=== PATIENT | female | born 1995 | race Hispanic/Latino ===

== ENCOUNTER 2016-12-15 13:18 | Emergency (ER) | payer SELFPAY ==
[2016-12-15 16:31] LABS: Basophils % (Auto) 0.6 % (0.0-1.8); Eosinophils % (Auto) 0.2 % (0.0-4.3); Hematocrit 44.1 % (30.3-42.9); Hemoglobin 14.6 gm/dl (10.1-14.3); Mean Corpuscular HGB Conc 33 % (30-34); Mean Corpuscular Hemoglobin 31 pg (28-32); Mean Corpuscular Volume 94 fl (79-97); Platelet Count 293 K/mm3 (140-440); Red Blood Count 4.72 M/mm3 (3.65-5.03); Red Cell Distribution Width 13.4 % (13.2-15.2); White Blood Count 13.9 K/mm3 (4.5-11.0)
[2016-12-15 16:56] LABS: Alanine Aminotransferase 15 units/L (7-56); Albumin 4.5 g/dL (3.9-5); Albumin/Globulin Ratio 1.6 %; Alkaline Phosphatase 91 units/L (35-129); Bilirubin,Total 0.2 mg/dL (0.1-1.2); Blood Urea Nitrogen 11 mg/dL (7-17); Calcium 9.1 mg/dL (8.4-10.2); Carbon Dioxide 26 mmol/L (22-30); Chloride 99.1 mmol/L (98-107); Glucose 91 mg/dL (65-100); Potassium 4.3 mmol/L (3.6-5.0); Sodium 138 mmol/L (137-145); Total Protein 7.4 g/dL (6.3-8.2)
[2016-12-15 17:03] LABS: Anion Gap 17 mmol/L
[2016-12-15] MEDS ORDERED: BACTRIM DS PO ONE (17:27)
[2016-12-15] MEDS ORDERED: TORADOL IM ONE (17:27)
--- NOTE | 2016-12-15 17:28 | Emergency Department Report ---
ED Psych HPI - General Chief Complaint: Psych Stated Complaint: ATTEMPTED SUICIDE Time Seen by Provider: 12/15/16 16:45 Source: patient, EMS Mode of arrival: Ambulatory Limitations: No Limitations - History of Present Illness Initial Comments: 21-year-old female with a past medical history of PTSD and manic depression presents to the hospital complains of cutting her left wrist with a piece of glass. Patient states she does not know why she cut it. She cut her wrist after taking 2 pills of her grandmothers for depression. Patient cannot recall the name of the medications. Patient is supposed to be following with [facility] but missed her last 2 appointments. Next available appointment in the end of dec. She is not currently taking any psychiatric medication. She denies suicidal homicidal ideation. She denies hallucinations. She has had self cutting episodes in the past but denies previous suicide attempts. She states her tetanus is up-to-date. Patient states she is currently on antibiotics for an infection to her left middle finger. Patient states some mild drainage noted. She was diagnosed with and infection prescribed meds at [facility]. She complains of mild pain at this area with palpation and movement - Related Data Home Medications Medication Instructions Recorded Confirmed Last Taken No Known Home Medications [No 12/15/16 12/15/16 Unknown Reported Home Medications] Allergies Allergy/AdvReac Type Severity Reaction Status Date / Time No Known Allergies Allergy Verified 11/10/15 02:23 ED Review of Systems ROS: Stated complaint: ATTEMPTED SUICIDE Other details as noted in HPI Comment: All other systems reviewed and negative Other: Constitutional: No fevers chills Eyes: No eye pain visual changes ENT: No ear pain or throat pain Neck: Denies pain Respiratory: Denies cough wheezing shortness of breath Cardiovascular: Denies chest pain, palpitations, syncope GI: Denies abdominal pain, nausea, vomiting, diarrhea : Denies dysuria, urinary frequency, or urgency Musculoskeletal: As per HPI Skin: as per hpi Neurologic: Denies headache, numbness, weakness Psychiatric: Denies suicidal ideation, hallucinations ED Past Medical Hx - Past Medical History Hx Psychiatric Treatment: Yes Additional medical history: PTSD after of daughter. Child is 3 yrs. old. Manic depression . - Surgical History Additional Surgical History: TONSILLECTOMY - Social History Smoking Status: Current Every Day Smoker Substance Use Type: None - Medications Home Medications: Home Medications Medication Instructions Recorded Confirmed Last Taken Type No Known Home Medications [No 12/15/16 12/15/16 Unknown History Reported Home Medications] ED Physical Exam - General Limitations: Altered Mental Status, Other - Other Other exam information: General: No limitations, patient is alert in no acute distress Head exam: Atraumatic, normocephalic Eyes exam: Normal appearance, pupils equal reactive to light, extraocular movements intact ENT: Moist mucous membrane, normal oropharynx Neck exam: Normal inspection, full range of motion, no meningismus nontender Respiratory exam: Clear to auscultation bilateral, no wheezes, rales, crackles Cardiovascular: Normal rate and rhythm, normal heart sounds Abdomen: Soft, nondistended, and nontender, with normal bowel sounds, no rebound, or guarding Extremity: Full range of motion, left hand middle finger with scabbed punctate lesion and erythema around the PIP joint with mild swelling noted. No sausage digit or findings of flexor tenosynovitis Back: Normal Inspection, full range of motion, no tenderness Neurologic: Alert, oriented x3, cranial nerves intact, no motor or sensory deficit Psychiatric: normal affect, normal mood Skin: Left volar surface of the wrist with a very superficial 2 cm laceration/ scratch not requiring suture repair. ED Course Vital Signs 12/15/16 12/15/16 12/15/16 13:46 13:51 13:56 Temperature 98.8 F Pulse Rate 89 Respiratory 14 Rate Blood Pressure 102/50 110/78 Blood Pressure [Left] O2 Sat by Pulse 98 98 99 Oximetry 12/15/16 12/15/16 12/15/16 14:00 14:02 15:33 Temperature 98.7 F Pulse Rate 70 Respiratory Rate Blood Pressure 101/55 101/55 Blood Pressure [Left] O2 Sat by Pulse 97 99 98 Oximetry 12/15/16 12/15/16 12/15/16 16:31 17:38 17:42 Temperature Pulse Rate Respiratory 12 Rate Blood Pressure 101/55 101/55 Blood Pressure [Left] O2 Sat by Pulse 99 89 99 Oximetry 12/15/16 12/15/16 12/15/16 17:51 18:15 18:20 Temperature 98.6 F Pulse Rate 78 Respiratory 18 Rate Blood Pressure 94/62 Blood Pressure [Left] O2 Sat by Pulse 90 Oximetry 12/15/16 12/15/16 12/15/16 18:51 19:15 19:24 Temperature Pulse Rate 76 Respiratory 18 Rate Blood Pressure 107/64 Blood Pressure 107/64 [Left] O2 Sat by Pulse 99 100 100 Oximetry - Reevaluation(s) Reevaluation #1: 12/15/16 17:29 Bactrim, Toradol ordered - Consultations Consultation #1: 12/15/16 19:56 consult ED Medical Decision Making - Lab Data Result diagrams: 12/15/16 16:17 12/15/16 16:17 Lab Results 12/15/16 12/15/16 12/15/16 Range/Units 16:17 16:17 16:17 WBC 13.9 H (4.5-11.0) K/mm3 RBC 4.72 (3.65-5.03) M/mm3 Hgb 14.6 H (10.1-14.3) gm/dl Hct 44.1 H (30.3-42.9) % MCV 94 (79-97) fl MCH 31 (28-32) pg MCHC 33 (30-34) % RDW 13.4 (13.2-15.2) % Plt Count 293 (140-440) K/mm3 Lymph % (Auto) 13.8 (13.4-35.0) % [place] % (Auto) 3.3 (0.0-7.3) % Eos % (Auto) 0.2 (0.0-4.3) % Baso % (Auto) 0.6 (0.0-1.8) % Lymph # 1.9 (1.2-5.4) K/mm3 [place] # 0.5 (0.0-0.8) K/mm3 Eos # 0.0 (0.0-0.4) K/mm3 Baso # 0.1 (0.0-0.1) K/mm3 Seg Neutrophils % 82.1 H (40.0-70.0) % Seg Neutrophils # 11.5 H (1.8-7.7) K/mm3 Sodium 138 (137-145) mmol/L Potassium 4.3 (3.6-5.0) mmol/L Chloride 99.1 (98-107) mmol/L Carbon Dioxide 26 (22-30) mmol/L Anion Gap 17 mmol/L BUN 11 (7-17) mg/dL Creatinine 0.5 L (0.7-1.2) mg/dL Estimated GFR > 60 ml/min BUN/Creatinine Ratio 22.00 % Glucose 91 (65-100) mg/dL Calcium 9.1 (8.4-10.2) mg/dL Total Bilirubin 0.2 (0.1-1.2) mg/dL AST 18 (5-40) units/L ALT 15 (7-56) units/L Alkaline Phosphatase 91 (35-129) units/L Total Protein 7.4 (6.3-8.2) g/dL Albumin 4.5 (3.9-5) g/dL Albumin/Globulin Ratio 1.6 % HCG, Qual (Negative) Urine Color (Yellow) Urine Turbidity (Clear) Urine pH (5.0-7.0) Ur Specific [place] (1.003-1.030) Urine Protein (Negative) mg/dL Urine Glucose (UA) (Negative) mg/dL Urine Ketones (Negative) mg/dL Urine Blood (Negative) Urine Nitrite (Negative) Urine Bilirubin (Negative) Urine Urobilinogen (<2.0) mg/dL Ur Leukocyte Esterase (Negative) Urine WBC (Auto) (0.0-6.0) /HPF Urine RBC (Auto) (0.0-6.0) /HPF U Epithel Cells (Auto) (0-13.0) /HPF Urine Bacteria (Auto) (Negative) /HPF Amorphous Crystals Salicylates < 0.3 L (2.8-20.0) mg/dL Urine Opiates Screen Urine Methadone Screen Acetaminophen (10.0-30.0) ug/mL Ur Barbiturates Screen Ur Phencyclidine Scrn Ur Amphetamines Screen U Benzodiazepines Scrn Urine Cocaine Screen U Marijuana (THC) Screen Drugs of Abuse Note Plasma/Serum Alcohol (0-0.07) gm% 12/15/16 12/15/16 12/15/16 Range/Units 16:17 16:17 16:17 WBC (4.5-11.0) K/mm3 RBC (3.65-5.03) M/mm3 Hgb (10.1-14.3) gm/dl Hct (30.3-42.9) % MCV (79-97) fl MCH (28-32) pg MCHC (30-34) % RDW (13.2-15.2) % Plt Count (140-440) K/mm3 Lymph % (Auto) (13.4-35.0) % [place] % (Auto) (0.0-7.3) % Eos % (Auto) (0.0-4.3) % Baso % (Auto) (0.0-1.8) % Lymph # (1.2-5.4) K/mm3 [place] # (0.0-0.8) K/mm3 Eos # (0.0-0.4) K/mm3 Baso # (0.0-0.1) K/mm3 Seg Neutrophils % (40.0-70.0) % Seg Neutrophils # (1.8-7.7) K/mm3 Sodium (137-145) mmol/L Potassium (3.6-5.0) mmol/L Chloride (98-107) mmol/L Carbon Dioxide (22-30) mmol/L Anion Gap mmol/L BUN (7-17) mg/dL Creatinine (0.7-1.2) mg/dL Estimated GFR ml/min BUN/Creatinine Ratio % Glucose (65-100) mg/dL Calcium (8.4-10.2) mg/dL Total Bilirubin (0.1-1.2) mg/dL AST (5-40) units/L ALT (7-56) units/L Alkaline Phosphatase (35-129) units/L Total Protein (6.3-8.2) g/dL Albumin (3.9-5) g/dL Albumin/Globulin Ratio % HCG, Qual Negative (Negative) Urine Color (Yellow) Urine Turbidity (Clear) Urine pH (5.0-7.0) Ur Specific [place] (1.003-1.030) Urine Protein (Negative) mg/dL Urine Glucose (UA) (Negative) mg/dL Urine Ketones (Negative) mg/dL Urine Blood (Negative) Urine Nitrite (Negative) Urine Bilirubin (Negative) Urine Urobilinogen (<2.0) mg/dL Ur Leukocyte Esterase (Negative) Urine WBC (Auto) (0.0-6.0) /HPF Urine RBC (Auto) (0.0-6.0) /HPF U Epithel Cells (Auto) (0-13.0) /HPF Urine Bacteria (Auto) (Negative) /HPF Amorphous Crystals Salicylates (2.8-20.0) mg/dL Urine Opiates Screen Urine Methadone Screen Acetaminophen < 15.0 (10.0-30.0) ug/mL Ur Barbiturates Screen Ur Phencyclidine Scrn Ur Amphetamines Screen U Benzodiazepines Scrn Urine Cocaine Screen U Marijuana (THC) Screen Drugs of Abuse Note Plasma/Serum Alcohol < 0.01 (0-0.07) gm% 12/15/16 12/15/16 Range/Units 17:26 17:26 WBC (4.5-11.0) K/mm3 RBC (3.65-5.03) M/mm3 Hgb (10.1-14.3) gm/dl Hct (30.3-42.9) % MCV (79-97) fl MCH (28-32) pg MCHC (30-34) % RDW (13.2-15.2) % Plt Count (140-440) K/mm3 Lymph % (Auto) (13.4-35.0) % [place] % (Auto) (0.0-7.3) % Eos % (Auto) (0.0-4.3) % Baso % (Auto) (0.0-1.8) % Lymph # (1.2-5.4) K/mm3 [place] # (0.0-0.8) K/mm3 Eos # (0.0-0.4) K/mm3 Baso # (0.0-0.1) K/mm3 Seg Neutrophils % (40.0-70.0) % Seg Neutrophils # (1.8-7.7) K/mm3 Sodium (137-145) mmol/L Potassium (3.6-5.0) mmol/L Chloride (98-107) mmol/L Carbon Dioxide (22-30) mmol/L Anion Gap mmol/L BUN (7-17) mg/dL Creatinine (0.7-1.2) mg/dL Estimated GFR ml/min BUN/Creatinine Ratio % Glucose (65-100) mg/dL Calcium (8.4-10.2) mg/dL Total Bilirubin (0.1-1.2) mg/dL AST (5-40) units/L ALT (7-56) units/L Alkaline Phosphatase (35-129) units/L Total Protein (6.3-8.2) g/dL Albumin (3.9-5) g/dL Albumin/Globulin Ratio % HCG, Qual (Negative) Urine Color Yellow (Yellow) Urine Turbidity Cloudy (Clear) Urine pH 7.0 (5.0-7.0) Ur Specific [place] 1.013 (1.003-1.030) Urine Protein <15 mg/dl (Negative) mg/dL Urine Glucose (UA) Neg (Negative) mg/dL Urine Ketones Neg (Negative) mg/dL Urine Blood Neg (Negative) Urine Nitrite Neg (Negative) Urine Bilirubin Neg (Negative) Urine Urobilinogen < 2.0 (<2.0) mg/dL Ur Leukocyte Esterase Sm (Negative) Urine WBC (Auto) 2.0 (0.0-6.0) /HPF Urine RBC (Auto) 2.0 (0.0-6.0) /HPF U Epithel Cells (Auto) 19.0 H (0-13.0) /HPF Urine Bacteria (Auto) 1+ (Negative) /HPF Amorphous Crystals Few Salicylates (2.8-20.0) mg/dL Urine Opiates Screen Presumptive negative Urine Methadone Screen Presumptive negative Acetaminophen (10.0-30.0) ug/mL Ur Barbiturates Screen Presumptive negative Ur Phencyclidine Scrn Presumptive negative Ur Amphetamines Screen Presumptive negative U Benzodiazepines Scrn Presumptive negative Urine Cocaine Screen Presumptive negative U Marijuana (THC) Screen Presumptive negative Drugs of Abuse Note Disclamer Plasma/Serum Alcohol (0-0.07) gm% - Medical Decision Making pt medically cleared. 1013 and transfer order signed. Pt will be covered with Bactrim for finger infection. During ED stay patient attempted to change her story multiple times stating that the scratch to her left wrist with a "accident". There is a male/ boyfriend at the bedside who has been asking to take the patient home and discharge her however, patient is here for self mutilating behavior and noncompliant without outpatient psychiatric treatment. Pt is trying to down play reason for visit to the hospital in an attempt to be sent home. Boyfriend gave a story that was not the story given by the pt initially. attempted to verify story with Grandparents but no response via phone. 1013 will be continued given story inconsistencies - Differential Diagnosis borderline, self mutilating behavior, PTSD, suicidal ideation, depression Critical Care Time: No Critical care attestation.: If time is entered above; I have spent that time in minutes in the direct care of this critically ill patient, excluding procedure time. ED Disposition Clinical Impression: Suicidal ideation, PTSD (post-traumatic stress disorder), Bipolar disorder, Finger infection, Medical clearance for psychiatric admission Disposition: DC/TX PSY HOSP/PSY UNIT Is pt being admited?: No Condition: Stable Time of Disposition: 19:57 (awaiting acceptance)
[2016-12-15 17:33] LABS: Urine Drugs of Abuse Note Disclamer
[2016-12-15 17:41] LABS: Bacteria,Urine 1+ /HPF (Negative); Bilirubin,Urine NEG (Negative); Blood,Urine NEG (Negative); Ketones,Urine NEG (Negative); Leukocyte Esterase,Urine SM (Negative); Nitrite,Urine NEG (Negative); Protein,Urine <15 mg/dL mg/dL (Negative); Urobilinogen,Urine < 2.0 mg/dL (<2.0)
[2016-12-15] MEDS ORDERED: HABITROL TD ONE ×2 (20:15→20:16)
[2016-12-16] MEDS ORDERED: ALUM-MAG HYDROX-SIMETH 200-200-20MG/5ML PO PRN (01:11)
[2016-12-16] MEDS ORDERED: MILK OF MAGNESIA PO PRN (01:11)
[2016-12-16] MEDS: BACTRIM DS PO SCH ×2 (10:10→22:00)
[2016-12-16] MEDS: TYLENOL PO PRN ×2 (21:18→21:20)
[2016-12-16] MEDS: VISTARIL PO PRN (21:29)
--- NOTE | 2016-12-17 02:07 | Event Note ---
Date: 12/17/16 No recent events. Awaiting psychiatric placement. Vital signs reviewed. Vital Signs 12/15/16 12/15/16 12/15/16 13:46 13:51 13:56 Temperature 98.8 F Pulse Rate 89 Respiratory 14 Rate Blood Pressure 102/50 110/78 Blood Pressure [Left] O2 Sat by Pulse 98 98 99 Oximetry 12/15/16 12/15/16 12/15/16 14:00 14:02 15:33 Temperature 98.7 F Pulse Rate 70 Respiratory Rate Blood Pressure 101/55 101/55 Blood Pressure [Left] O2 Sat by Pulse 97 99 98 Oximetry 12/15/16 12/15/16 12/15/16 16:31 17:38 17:42 Temperature Pulse Rate Respiratory 12 Rate Blood Pressure 101/55 101/55 Blood Pressure [Left] O2 Sat by Pulse 99 89 99 Oximetry 12/15/16 12/15/16 12/15/16 17:51 18:15 18:20 Temperature 98.6 F Pulse Rate 78 Respiratory 18 Rate Blood Pressure 94/62 Blood Pressure [Left] O2 Sat by Pulse 90 Oximetry 12/15/16 12/15/16 12/15/16 18:51 19:15 19:24 Temperature Pulse Rate 76 Respiratory 18 Rate Blood Pressure 107/64 Blood Pressure 107/64 [Left] O2 Sat by Pulse 99 100 100 Oximetry 12/16/16 10:00 Temperature Pulse Rate Respiratory 18 Rate Blood Pressure Blood Pressure [Left] O2 Sat by Pulse 100 Oximetry
[2016-12-17] MEDS: BACTRIM DS PO SCH ×2 (10:09→22:47)
[2016-12-17] MEDS: VISTARIL PO PRN ×2 (11:59→22:38)
--- NOTE | 2016-12-17 14:16 | Emergency Department Report ---
Blank Doc - Documentation Documentation: Bitting note reviewed. Labs reviewed. Vital signs reviewed. I don't see any supplemental issues.
[2016-12-17] MEDS ORDERED: ATIVAN PO ONE (17:06)
[2016-12-17] MEDS: TYLENOL PO PRN (17:10)
[2016-12-18 09:36] VITALS: BP 97/58
== END 2016-12-18 09:36 ==
LOC: EEVIPCON 13:18 → ED 13:18
DX: S61.512A Laceration without foreign body of left wrist, initial encounter (principal); R45.851 Suicidal ideations; F20.9 Schizophrenia, unspecified; L08.9 Local infection of the skin and subcutaneous tissue, unspecified; F43.10 Post-traumatic stress disorder, unspecified; F17.200 Nicotine dependence, unspecified, uncomplicated; W25.XXXA Contact with sharp glass, initial encounter; Y93.9 Activity, unspecified; Y92.89 Other specified places as the place of occurrence of the external cause; Y99.9 Unspecified external cause status
CPT/HCPCS: 36415; 80053; 80307; 81001; 84703; 85025; 96372; 99285; G0480; J1885; 80320; Q0177

== ENCOUNTER 2018-03-24 23:10 | Emergency (ER) | payer MEDICAID ==
[2018-03-24 23:19] VITALS: BP 122/86
[2018-03-24 23:50] LABS: Basophils # (Auto) 0.1 K/mm3 (0.0-0.1); Basophils % (Auto) 0.8 % (0.0-1.8); Eosinophils # (Auto) 0.1 K/mm3 (0.0-0.4); Eosinophils % (Auto) 0.8 % (0.0-4.3); Hematocrit 43.4 % (30.3-42.9); Hemoglobin 14.8 gm/dl (10.1-14.3); Lymphocytes # (Auto) 3.3 K/mm3 (1.2-5.4); Lymphocytes % (Auto) 29.7 % (13.4-35.0); Mean Corpuscular HGB Conc 34 % (30-34); Mean Corpuscular Hemoglobin 31 pg (28-32); Mean Corpuscular Volume 91 fl (79-97); Monocytes # (Auto) 0.8 K/mm3 (0.0-0.8); Monocytes % (Auto) 6.9 % (0.0-7.3); Platelet Count 296 K/mm3 (140-440); Red Blood Count 4.77 M/mm3 (3.65-5.03); Red Cell Distribution Width 13.2 % (13.2-15.2)
[2018-03-25 00:04] LABS: BUN/Creatinine Ratio 13; Blood Urea Nitrogen 9 mg/dL (7-17); Calcium 9.3 mg/dL (8.4-10.2); Hemolysis Index 2
[2018-03-25 02:20] LABS: Bacteria,Urine 2+ /HPF (Negative); Bilirubin,Urine NEG (Negative); Blood,Urine NEG (Negative); Color,Urine Amber (Yellow); Hyaline Casts,Urine 1 /LPF; Mucus,Urine 1+ /HPF; Protein,Urine <15 mg/dL mg/dL (Negative)
[2018-03-25 02:35] LABS: Benzodiazepines Screen,Urine PRESUMPTIVE NEGATIVE; Cocaine Screen,Urine PRESUMPTIVE NEGATIVE; Methadone Screen,Urine PRESUMPTIVE NEGATIVE; Opiate Screen,Urine PRESUMPTIVE NEGATIVE
[2018-03-25 02:50] LABS: Amphetamine Screen,Urine PRESUMPTIVE POSITIVE; Cannabinoid Screen,Urine PRESUMPTIVE POSITIVE
== END 2018-03-24 23:53 | disposition left against medical advice (07) ==
LOC: ED 23:10
DX: R53.1 Weakness (principal); Z53.21 Procedure and treatment not carried out due to patient leaving prior to being seen by health care provider; Z79.899 Other long term (current) drug therapy
CPT/HCPCS: 36415; 80048; 80307; 81001; 84703; 85025; G0480; 80320

== ENCOUNTER 2021-05-09 16:54 | Inpatient (IN) | payer OTHER ==
[2021-05-09] MEDS ORDERED: NALOXONE 2 MG/2 ML INJ ONE (16:57)
[2021-05-09] MEDS ORDERED: SODIUM CHLORIDE 0.9% 1000 ML 1,000 ML ONE (17:04)
[2021-05-09] MEDS ORDERED: LIP THERAPY VASELINE TP PRN (17:14)
[2021-05-09] MEDS ORDERED: MINERAL OIL/PETROLATUM, WHITE OPHTH OINT 3.5 GM OU PRN (17:14)
--- NOTE | 2021-05-09 17:19 | Emergency Department Report ---
HPI - General Time Seen by Provider: 05/09/21 17:12 - HPI HPI: This is a 26-year-old female presents to the emergency department via EMS from home unresponsive with witnessed seizures and concern for an overdose of Benadryl. EMS says that their initial call was for a Benadryl overdose. Family is unable to say how much she took or when she took it. The patient was awake but altered when EMS arrived. She laid down on the cement, appeared to defecate on herself, and had a seizure. The patient had another seizure in route with EMS and was given 2 mg of Ativan. EMS says that the family told him that she does have some history of previous drug use/abuse, but they are not sure whether she has used any illicit drugs since she got out of [facility] 2 months ago. The patient has not been to our emergency department since June of last year, but has previously been seen for suicidal ideations, bipolar disorder, amphetamine abuse and PTSD. The patient presents with a GCS of 6 and no gag reflex, so the patient was intubated for protection of airway. ED Past Medical Hx - Past Medical History Hx Psychiatric Treatment: Yes Additional medical history: PTSD after of daughter. Child is 3 yrs. old. Manic depression . - Surgical History Additional Surgical History: TONSILLECTOMY - Social History Smoking Status: Never Smoker Substance Use Type: None - Medications Home Medications: Home Medications Medication Instructions Recorded Confirmed Last Taken Type Nitrofurantoin Lassen/M-Cryst 100 mg PO Q12HR #14 capsule 06/20/20 Unknown Rx [Macrobid CAP] risperiDONE [RisperDAL] 0.5 mg PO BID #60 tablet 06/20/20 Unknown Rx traZODone [Desyrel] 50 mg PO QHS #30 tablet 06/20/20 Unknown Rx ED Review of Systems ROS: Stated complaint: UNRESPONSIVE Other details as noted in HPI Comment: Unobtainable due to pts medical conditions Physical Exam - Physical Exam Physical Exam: GENERAL: The patient is ill-appearing and unresponsive. HENT: Normocephalic. Atraumatic. Patient has moist mucous membranes. EYES: Horizontal nystagmus. Pupils equal reactive to light bilaterally. NECK: Supple. Trachea is midline. CHEST/LUNGS: Clear to auscultation. There is no respiratory distress noted. HEART/CARDIOVASCULAR: Regular. There is moderate tachycardia. There is no murmur. ABDOMEN: Abdomen is soft, nontender. Patient has normal bowel sounds. There is no abdominal distention. SKIN: Skin is warm and dry. NEURO: Patient is unresponsive. Eyes are open spontaneously but there is horizontal nystagmus and no blinking reflex. GCS of 6. No gag reflex. MUSCULOSKELETAL: There is no tenderness or deformity. ED Course - Reevaluation(s) Reevaluation #1: 05/09/21 18:47 Mother (Sahara Mitchell) called. Her Cell number [phone]. Her mother confirms that the patient was at the grandparents house and that the patient went into her grandmother's room and told them that she took "a bunch" of Benadryl. - Consultations Consultation #1: 05/09/21 17:24 I spoke with poison control. They do not recommend physostigmine at this time. Suggestion is supportive care and use benzodiazepines as needed for any agitation. They recommend the normal tox work-up including EKG, UDS, blood alcohol level, acetaminophen/salicylate levels, and he also recommends a CK level. 05/09/21 17:38 Poison control called back and after speaking to the tox attending they recommended activated charcoal with sorbitol at 1 g/kg. - Intubation Time Out Performed: Yes Sedative: Etomidate Mg Given: 20 Paralytic: Rocuronium Mg Given: 50 Laryngoscope: other ([place] scope) Size: 4 ET Tube Size: 7.5 Tube Secured Depth (cm): 22 Tube Secured Location: teeth Tube Placement Confirmation: visualized tube passing t, equal breath sounds bilat, confirmation by capnometr Patient Tolerated Procedure: well Intubation Complications: none ED Medical Decision Making - Lab Data Result diagrams: 05/10/21 04:18 05/10/21 04:18 Lab Results 05/09/21 05/09/21 05/09/21 Range/Units 17:21 17:21 17:21 WBC 9.0 (4.5-11.0) K/mm3 RBC 4.67 (3.65-5.03) M/mm3 Hgb 14.9 H (10.1-14.3) gm/dl Hct 45.0 H (30.3-42.9) % MCV 96 (79-97) fl MCH 32 (28-32) pg MCHC 33 (30-34) % RDW 14.1 (13.2-15.2) % Plt Count 325 (140-440) K/mm3 Lymph % (Auto) 19.6 (13.4-35.0) % [place] % (Auto) 6.4 (0.0-7.3) % Eos % (Auto) 1.1 (0.0-4.3) % Baso % (Auto) 1.2 (0.0-1.8) % Lymph # (Auto) 1.8 (1.2-5.4) K/mm3 [place] # (Auto) 0.6 (0.0-0.8) K/mm3 Eos # (Auto) 0.1 (0.0-0.4) K/mm3 Baso # (Auto) 0.1 (0.0-0.1) K/mm3 Seg Neutrophils % 71.7 H (40.0-70.0) % Seg Neutrophils # 6.5 (1.8-7.7) K/mm3 PT 15.0 H (12.2-14.9) Sec. INR 1.12 (0.87-1.13) ABG pH (7.320-7.450) POC ABG pCO2 (32.0-48.0) mmHg POC ABG pO2 (83-108) mmHg POC ABG HCO3 ABG O2 Saturation (0-100) POC ABG Base Excess ABG Hemoglobin (12.0-17.5) ABG Oxyhemoglobin (94-98) ABG Methemoglobin (0.0-1.5) ABG Sodium (136.0-145.0) mmol/L ABG Potassium (3.40-4.50) mmol/L ABG Chloride (98-107) mmol/L ABG Glucose (65-95) mg/dL ABG Lactate (0.18-30.0) VBG pH (7.320-7.420) Carboxyhemoglobin (0.5-1.5) FiO2 % Sodium 134 L (137-145) mmol/L Potassium 3.1 L (3.6-5.0) mmol/L Chloride 96.6 L (98-107) mmol/L Carbon Dioxide 14 L (22-30) mmol/L Anion Gap 27 mmol/L BUN 9 (7-17) mg/dL Creatinine 0.8 (0.6-1.2) mg/dL Estimated GFR > 60 ml/min BUN/Creatinine Ratio 11 % Glucose 94 (65-100) mg/dL Lactic Acid (0.7-2.0) mmol/L Calcium 8.7 (8.4-10.2) mg/dL Total Bilirubin 0.40 (0.1-1.2) mg/dL AST 19 (5-40) units/L ALT 12 (7-56) units/L Alkaline Phosphatase 84 (35-129) units/L Ammonia (25-60) umol/L Total Creatine Kinase 70 (30-135) units/L Troponin T < 0.010 (0.00-0.029) ng/mL Total Protein 7.1 (6.3-8.2) g/dL Albumin 4.1 (3.9-5) g/dL Albumin/Globulin Ratio 1.4 % TSH (0.270-4.200) mlU/mL HCG, Qual (Negative) Arterial Blood Glucose (65-95) mg/dL Urine Color (Yellow) Urine Turbidity (Clear) Urine pH (5.0-7.0) Ur Specific [place] (1.003-1.030) Urine Protein (Negative) mg/dL Urine Glucose (UA) (Negative) mg/dL Urine Ketones (Negative) mg/dL Urine Blood (Negative) Urine Nitrite (Negative) Urine Bilirubin (Negative) Urine Urobilinogen (<2.0) mg/dL Ur Leukocyte Esterase (Negative) Urine WBC (Auto) (0.0-6.0) /HPF Urine RBC (Auto) (0.0-6.0) /HPF U Epithel Cells (Auto) (0-13.0) /HPF Urine Bacteria (Auto) (Negative) /HPF Urine Mucus /HPF Salicylates (2.8-20.0) mg/dL Urine Opiates Screen Urine Methadone Screen Acetaminophen (10.0-30.0) ug/mL Ur Barbiturates Screen Ur Phencyclidine Scrn U Benzodiazepines Scrn Urine Cocaine Screen U Marijuana (THC) Screen Plasma/Serum Alcohol (0-0.07) % 05/09/21 05/09/21 05/09/21 Range/Units 17:21 17:21 17:21 WBC (4.5-11.0) K/mm3 RBC (3.65-5.03) M/mm3 Hgb (10.1-14.3) gm/dl Hct (30.3-42.9) % MCV (79-97) fl MCH (28-32) pg MCHC (30-34) % RDW (13.2-15.2) % Plt Count (140-440) K/mm3 Lymph % (Auto) (13.4-35.0) % [place] % (Auto) (0.0-7.3) % Eos % (Auto) (0.0-4.3) % Baso % (Auto) (0.0-1.8) % Lymph # (Auto) (1.2-5.4) K/mm3 [place] # (Auto) (0.0-0.8) K/mm3 Eos # (Auto) (0.0-0.4) K/mm3 Baso # (Auto) (0.0-0.1) K/mm3 Seg Neutrophils % (40.0-70.0) % Seg Neutrophils # (1.8-7.7) K/mm3 PT (12.2-14.9) Sec. INR (0.87-1.13) ABG pH (7.320-7.450) POC ABG pCO2 (32.0-48.0) mmHg POC ABG pO2 (83-108) mmHg POC ABG HCO3 ABG O2 Saturation (0-100) POC ABG Base Excess ABG Hemoglobin (12.0-17.5) ABG Oxyhemoglobin (94-98) ABG Methemoglobin (0.0-1.5) ABG Sodium (136.0-145.0) mmol/L ABG Potassium (3.40-4.50) mmol/L ABG Chloride (98-107) mmol/L ABG Glucose (65-95) mg/dL ABG Lactate (0.18-30.0) VBG pH (7.320-7.420) Carboxyhemoglobin (0.5-1.5) FiO2 % Sodium (137-145) mmol/L Potassium (3.6-5.0) mmol/L Chloride (98-107) mmol/L Carbon Dioxide (22-30) mmol/L Anion Gap mmol/L BUN (7-17) mg/dL Creatinine (0.6-1.2) mg/dL Estimated GFR ml/min BUN/Creatinine Ratio % Glucose (65-100) mg/dL Lactic Acid 10.30 H* (0.7-2.0) mmol/L Calcium (8.4-10.2) mg/dL Total Bilirubin (0.1-1.2) mg/dL AST (5-40) units/L ALT (7-56) units/L Alkaline Phosphatase (35-129) units/L Ammonia 87.0 H (25-60) umol/L Total Creatine Kinase (30-135) units/L Troponin T (0.00-0.029) ng/mL Total Protein (6.3-8.2) g/dL Albumin (3.9-5) g/dL Albumin/Globulin Ratio % TSH 6.210 H (0.270-4.200) mlU/mL HCG, Qual (Negative) Arterial Blood Glucose (65-95) mg/dL Urine Color (Yellow) Urine Turbidity (Clear) Urine pH (5.0-7.0) Ur Specific [place] (1.003-1.030) Urine Protein (Negative) mg/dL Urine Glucose (UA) (Negative) mg/dL Urine Ketones (Negative) mg/dL Urine Blood (Negative) Urine Nitrite (Negative) Urine Bilirubin (Negative) Urine Urobilinogen (<2.0) mg/dL Ur Leukocyte Esterase (Negative) Urine WBC (Auto) (0.0-6.0) /HPF Urine RBC (Auto) (0.0-6.0) /HPF U Epithel Cells (Auto) (0-13.0) /HPF Urine Bacteria (Auto) (Negative) /HPF Urine Mucus /HPF Salicylates (2.8-20.0) mg/dL Urine Opiates Screen Urine Methadone Screen Acetaminophen (10.0-30.0) ug/mL Ur Barbiturates Screen Ur Phencyclidine Scrn U Benzodiazepines Scrn Urine Cocaine Screen U Marijuana (THC) Screen Plasma/Serum Alcohol (0-0.07) % 05/09/21 05/09/21 05/09/21 Range/Units 17:21 17:21 17:21 WBC (4.5-11.0) K/mm3 RBC (3.65-5.03) M/mm3 Hgb (10.1-14.3) gm/dl Hct (30.3-42.9) % MCV (79-97) fl MCH (28-32) pg MCHC (30-34) % RDW (13.2-15.2) % Plt Count (140-440) K/mm3 Lymph % (Auto) (13.4-35.0) % [place] % (Auto) (0.0-7.3) % Eos % (Auto) (0.0-4.3) % Baso % (Auto) (0.0-1.8) % Lymph # (Auto) (1.2-5.4) K/mm3 [place] # (Auto) (0.0-0.8) K/mm3 Eos # (Auto) (0.0-0.4) K/mm3 Baso # (Auto) (0.0-0.1) K/mm3 Seg Neutrophils % (40.0-70.0) % Seg Neutrophils # (1.8-7.7) K/mm3 PT (12.2-14.9) Sec. INR (0.87-1.13) ABG pH (7.320-7.450) POC ABG pCO2 (32.0-48.0) mmHg POC ABG pO2 (83-108) mmHg POC ABG HCO3 ABG O2 Saturation (0-100) POC ABG Base Excess ABG Hemoglobin (12.0-17.5) ABG Oxyhemoglobin (94-98) ABG Methemoglobin (0.0-1.5) ABG Sodium (136.0-145.0) mmol/L ABG Potassium (3.40-4.50) mmol/L ABG Chloride (98-107) mmol/L ABG Glucose (65-95) mg/dL ABG Lactate (0.18-30.0) VBG pH (7.320-7.420) Carboxyhemoglobin (0.5-1.5) FiO2 % Sodium (137-145) mmol/L Potassium (3.6-5.0) mmol/L Chloride (98-107) mmol/L Carbon Dioxide (22-30) mmol/L Anion Gap mmol/L BUN (7-17) mg/dL Creatinine (0.6-1.2) mg/dL Estimated GFR ml/min BUN/Creatinine Ratio % Glucose (65-100) mg/dL Lactic Acid (0.7-2.0) mmol/L Calcium (8.4-10.2) mg/dL Total Bilirubin (0.1-1.2) mg/dL AST (5-40) units/L ALT (7-56) units/L Alkaline Phosphatase (35-129) units/L Ammonia (25-60) umol/L Total Creatine Kinase (30-135) units/L Troponin T (0.00-0.029) ng/mL Total Protein (6.3-8.2) g/dL Albumin (3.9-5) g/dL Albumin/Globulin Ratio % TSH (0.270-4.200) mlU/mL HCG, Qual (Negative) Arterial Blood Glucose (65-95) mg/dL Urine Color (Yellow) Urine Turbidity (Clear) Urine pH (5.0-7.0) Ur Specific [place] (1.003-1.030) Urine Protein (Negative) mg/dL Urine Glucose (UA) (Negative) mg/dL Urine Ketones (Negative) mg/dL Urine Blood (Negative) Urine Nitrite (Negative) Urine Bilirubin (Negative) Urine Urobilinogen (<2.0) mg/dL Ur Leukocyte Esterase (Negative) Urine WBC (Auto) (0.0-6.0) /HPF Urine RBC (Auto) (0.0-6.0) /HPF U Epithel Cells (Auto) (0-13.0) /HPF Urine Bacteria (Auto) (Negative) /HPF Urine Mucus /HPF Salicylates < 0.3 L (2.8-20.0) mg/dL Urine Opiates Screen Urine Methadone Screen Acetaminophen 5.0 L (10.0-30.0) ug/mL Ur Barbiturates Screen Ur Phencyclidine Scrn U Benzodiazepines Scrn Urine Cocaine Screen U Marijuana (THC) Screen Plasma/Serum Alcohol < 0.01 (0-0.07) % 05/09/21 05/09/21 05/09/21 Range/Units 17:21 17:51 18:33 WBC (4.5-11.0) K/mm3 RBC (3.65-5.03) M/mm3 Hgb (10.1-14.3) gm/dl Hct (30.3-42.9) % MCV (79-97) fl MCH (28-32) pg MCHC (30-34) % RDW (13.2-15.2) % Plt Count (140-440) K/mm3 Lymph % (Auto) (13.4-35.0) % [place] % (Auto) (0.0-7.3) % Eos % (Auto) (0.0-4.3) % Baso % (Auto) (0.0-1.8) % Lymph # (Auto) (1.2-5.4) K/mm3 [place] # (Auto) (0.0-0.8) K/mm3 Eos # (Auto) (0.0-0.4) K/mm3 Baso # (Auto) (0.0-0.1) K/mm3 Seg Neutrophils % (40.0-70.0) % Seg Neutrophils # (1.8-7.7) K/mm3 PT (12.2-14.9) Sec. INR (0.87-1.13) ABG pH 7.419 (7.320-7.450) POC ABG pCO2 33.3 (32.0-48.0) mmHg POC ABG pO2 478.4 H (83-108) mmHg POC ABG HCO3 21.1 ABG O2 Saturation 99.7 (0-100) POC ABG Base Excess -2.6 ABG Hemoglobin 14.1 (12.0-17.5) ABG Oxyhemoglobin 98.8 H (94-98) ABG Methemoglobin 0 (0.0-1.5) ABG Sodium 140.7 (136.0-145.0) mmol/L ABG Potassium 3.1 L (3.40-4.50) mmol/L ABG Chloride 102.0 (98-107) mmol/L ABG Glucose 85 (65-95) mg/dL ABG Lactate 1.38 (0.18-30.0) VBG pH 7.306 L (7.320-7.420) Carboxyhemoglobin 0.9 (0.5-1.5) FiO2 % 100.0 Sodium (137-145) mmol/L Potassium (3.6-5.0) mmol/L Chloride (98-107) mmol/L Carbon Dioxide (22-30) mmol/L Anion Gap mmol/L BUN (7-17) mg/dL Creatinine (0.6-1.2) mg/dL Estimated GFR ml/min BUN/Creatinine Ratio % Glucose (65-100) mg/dL Lactic Acid (0.7-2.0) mmol/L Calcium (8.4-10.2) mg/dL Total Bilirubin (0.1-1.2) mg/dL AST (5-40) units/L ALT (7-56) units/L Alkaline Phosphatase (35-129) units/L Ammonia (25-60) umol/L Total Creatine Kinase (30-135) units/L Troponin T (0.00-0.029) ng/mL Total Protein (6.3-8.2) g/dL Albumin (3.9-5) g/dL Albumin/Globulin Ratio % TSH (0.270-4.200) mlU/mL HCG, Qual Negative (Negative) Arterial Blood Glucose 85 (65-95) mg/dL Urine Color (Yellow) Urine Turbidity (Clear) Urine pH (5.0-7.0) Ur Specific [place] (1.003-1.030) Urine Protein (Negative) mg/dL Urine Glucose (UA) (Negative) mg/dL Urine Ketones (Negative) mg/dL Urine Blood (Negative) Urine Nitrite (Negative) Urine Bilirubin (Negative) Urine Urobilinogen (<2.0) mg/dL Ur Leukocyte Esterase (Negative) Urine WBC (Auto) (0.0-6.0) /HPF Urine RBC (Auto) (0.0-6.0) /HPF U Epithel Cells (Auto) (0-13.0) /HPF Urine Bacteria (Auto) (Negative) /HPF Urine Mucus /HPF Salicylates (2.8-20.0) mg/dL Urine Opiates Screen Urine Methadone Screen Acetaminophen (10.0-30.0) ug/mL Ur Barbiturates Screen Ur Phencyclidine Scrn U Benzodiazepines Scrn Urine Cocaine Screen U Marijuana (THC) Screen Plasma/Serum Alcohol (0-0.07) % 05/09/21 05/09/21 Range/Units 18:47 18:47 WBC (4.5-11.0) K/mm3 RBC (3.65-5.03) M/mm3 Hgb (10.1-14.3) gm/dl Hct (30.3-42.9) % MCV (79-97) fl MCH (28-32) pg MCHC (30-34) % RDW (13.2-15.2) % Plt Count (140-440) K/mm3 Lymph % (Auto) (13.4-35.0) % [place] % (Auto) (0.0-7.3) % Eos % (Auto) (0.0-4.3) % Baso % (Auto) (0.0-1.8) % Lymph # (Auto) (1.2-5.4) K/mm3 [place] # (Auto) (0.0-0.8) K/mm3 Eos # (Auto) (0.0-0.4) K/mm3 Baso # (Auto) (0.0-0.1) K/mm3 Seg Neutrophils % (40.0-70.0) % Seg Neutrophils # (1.8-7.7) K/mm3 PT (12.2-14.9) Sec. INR (0.87-1.13) ABG pH (7.320-7.450) POC ABG pCO2 (32.0-48.0) mmHg POC ABG pO2 (83-108) mmHg POC ABG HCO3 ABG O2 Saturation (0-100) POC ABG Base Excess ABG Hemoglobin (12.0-17.5) ABG Oxyhemoglobin (94-98) ABG Methemoglobin (0.0-1.5) ABG Sodium (136.0-145.0) mmol/L ABG Potassium (3.40-4.50) mmol/L ABG Chloride (98-107) mmol/L ABG Glucose (65-95) mg/dL ABG Lactate (0.18-30.0) VBG pH (7.320-7.420) Carboxyhemoglobin (0.5-1.5) FiO2 % Sodium (137-145) mmol/L Potassium (3.6-5.0) mmol/L Chloride (98-107) mmol/L Carbon Dioxide (22-30) mmol/L Anion Gap mmol/L BUN (7-17) mg/dL Creatinine (0.6-1.2) mg/dL Estimated GFR ml/min BUN/Creatinine Ratio % Glucose (65-100) mg/dL Lactic Acid (0.7-2.0) mmol/L Calcium (8.4-10.2) mg/dL Total Bilirubin (0.1-1.2) mg/dL AST (5-40) units/L ALT (7-56) units/L Alkaline Phosphatase (35-129) units/L Ammonia (25-60) umol/L Total Creatine Kinase (30-135) units/L Troponin T (0.00-0.029) ng/mL Total Protein (6.3-8.2) g/dL Albumin (3.9-5) g/dL Albumin/Globulin Ratio % TSH (0.270-4.200) mlU/mL HCG, Qual (Negative) Arterial Blood Glucose (65-95) mg/dL Urine Color Yellow (Yellow) Urine Turbidity Clear (Clear) Urine pH 7.0 (5.0-7.0) Ur Specific [place] 1.010 (1.003-1.030) Urine Protein <15 mg/dl (Negative) mg/dL Urine Glucose (UA) Neg (Negative) mg/dL Urine Ketones Tr (Negative) mg/dL Urine Blood Neg (Negative) Urine Nitrite Neg (Negative) Urine Bilirubin Neg (Negative) Urine Urobilinogen < 2.0 (<2.0) mg/dL Ur Leukocyte Esterase Neg (Negative) Urine WBC (Auto) 1.0 (0.0-6.0) /HPF Urine RBC (Auto) 3.0 (0.0-6.0) /HPF U Epithel Cells (Auto) 1.0 (0-13.0) /HPF Urine Bacteria (Auto) 1+ (Negative) /HPF Urine Mucus Few /HPF Salicylates (2.8-20.0) mg/dL Urine Opiates Screen Negative Urine Methadone Screen Negative Acetaminophen (10.0-30.0) ug/mL Ur Barbiturates Screen Negative Ur Phencyclidine Scrn Negative U Benzodiazepines Scrn Negative Urine Cocaine Screen Negative U Marijuana (THC) Screen Negative Plasma/Serum Alcohol (0-0.07) % - EKG Data -: EKG Interpreted by Me - EKG Data When compared to previous EKG there are: previous EKG unavailable Interpretation: other (Ectopic atrial tachycardia at 153 bpm, normal axis, prolonged QTC. IVCD) - Radiology Data Radiology results: report reviewed, image reviewed interpreted by me: Chest x-ray does not show any acute process. There are no pleural effusions, obvious pneumonia and there is no pneumothorax. No widened mediastinum. OG tube appears to and in the stomach. Endotracheal tube just below the clavicular heads. CT head/brain wo con INDICATION: Altered mental status. TECHNIQUE: Routine CT head. All CT scans at this location are performed using CT dose reduction for ALARA by means of automated exposure control. COMPARISON: None. FINDINGS: Intracranial: Rm-white matter differentiation is maintained. No intracranial hemorrhage. No extra axial collection. No hydrocephalus. No herniation. Sinuses: Paranasal sinuses and mastoid air cells are essentially clear. Orbits: Globes are intact. Calvarium: No acute fracture. IMPRESSION: 1. No acute intracranial a bnormality. - Medical Decision Making This patient presented to the emergency department unresponsive after having 2 witnessed seizures by EMS. The initial call was for a Benadryl overdose and the patient's fever, tachycardia and seizures do appear consistent with a anticholinergic syndrome. The patient's mother later called and confirmed that the patient had told her grandparents that she had overdosed on Benadryl. The UDS later also shows amphetamines so there may be some type of polysubstance abuse/ingestion. The patient presented mostly unresponsive with a GCS of 6. Her eyes were open spontaneously but the patient was having consistent horizontal nystagmus, did not have any blinking reflex, and ultimately the patient did not have any gag reflex. For these reasons the patient was intubated, as per the procedure section, for protection of airway. Poison control was contacted and recommended supportive care, but also recommended charcoal and sorbitol. The patient was given this down the OG tube. The patient's labs show lactic acidosis, elevation in the ammonia level, UDS positive for amphetamines, mild hypokalemia, and some evidence of hypothyroidism. Patient has been given IV fluid resuscitation, lactulose, the charcoal and sorb itol, multiple doses of Ativan, and is on a Versed drip. I am waiting for the results of the CT scan of the head without contrast, but I did not see any preliminary evidence of hemorrhage or large vessel occlusion. The patient will be admitted to the ICU and has been accepted for admission by the hospitalist, Dr. Salas. Critical Care Time: Yes Critical care time in (mins) excluding proc time.: 35 Critical care attestation.: If time is entered above; I have spent that time in minutes in the direct care of this critically ill patient, excluding procedure time. Critical care time was spent on this patient in doing her initial evaluation, multiple reevaluations, ordering and interpretation of labs and imaging, vent management, sedation while intubated, discussion with poison control, multiple discussions with the patient's family. This does not include the separately billable procedures of intubation. Critical Care Time: 35 minutes ED Disposition Clinical Impression: Suicide attempt, Hypokalemia, Lactic acidosis Anticholinergic syndrome Qualifiers: Encounter type: initial encounter Injury intent: intentional self-harm Qualified Code(s): T44.3X2A - Poisoning by other parasympatholytics [anticholinergics and antimuscarinics] and spasmolytics, intentional self-harm, initial encounter Acute respiratory failure Qualifiers: Respiratory failure complication: hypoxia Qualified Code(s): J96.01 - Acute respiratory failure with hypoxia Drug overdose, intentional Qualifiers: Encounter type: initial encounter Qualified Code(s): T50.902A - Poisoning by unspecified drugs, medicaments and biological substances, intentional self-harm, initial encounter Disposition: DC-09 OP ADMIT IP TO THIS HOSP Is pt being admited?: Yes Condition: Critical
[2021-05-09] MEDS ORDERED: NALOXONE 2 MG/2 ML INJ IV ONE (17:26)
[2021-05-09] MEDS ORDERED: ETOMIDATE 20 MG/10 ML INJ IV ONE (17:31)
[2021-05-09] MEDS ORDERED: ROCURONIUM 50 MG/5 ML INJ IV ONE (17:32)
[2021-05-09] MEDS ORDERED: CHARCOAL/SORBITOL SOLUTION 25 GM/120 ML PO ONE (17:32)
[2021-05-09 17:39] LABS: Basophils # (Auto) 0.1 K/mm3 (0.0-0.1); Basophils % (Auto) 1.2 % (0.0-1.8); Eosinophils # (Auto) 0.1 K/mm3 (0.0-0.4); Eosinophils % (Auto) 1.1 % (0.0-4.3); Hemoglobin 14.9 gm/dl (10.1-14.3); Lymphocytes # (Auto) 1.8 K/mm3 (1.2-5.4); Lymphocytes % (Auto) 19.6 % (13.4-35.0); Mean Corpuscular HGB Conc 33 % (30-34); Mean Corpuscular Volume 96 fl (79-97); Monocytes # (Auto) 0.6 K/mm3 (0.0-0.8); Monocytes % (Auto) 6.4 % (0.0-7.3); Platelet Count 325 K/mm3 (140-440); Red Blood Count 4.67 M/mm3 (3.65-5.03); Red Cell Distribution Width 14.1 % (13.2-15.2)
[2021-05-09] MEDS ORDERED: LORazepam 2 MG/ML VIAL ONE ×2 (17:44→18:13)
[2021-05-09] MEDS ORDERED: MIDAZOLAM 100 MG in SODIUM CHLORIDE 0.9% 80 ML IV SCH (18:00)
[2021-05-09] MEDS ORDERED: SODIUM BICARB 8.4% 50 MEQ/50 ML SYRINGE IV ONE (18:00)
[2021-05-09 18:02] LABS: Alanine Aminotransferase 12 units/L (7-56); Albumin 4.1 g/dL (3.9-5); BUN/Creatinine Ratio 11; Blood Urea Nitrogen 9 mg/dL (7-17); Calcium 8.7 mg/dL (8.4-10.2); Hemolysis Index 24
[2021-05-09 18:03] LABS: INR 1.12 (0.87-1.13)
[2021-05-09] MEDS ORDERED: SODIUM CHLORIDE 0.9% 1000 ML 1,000 ML IV ONE (18:04)
--- NOTE | 2021-05-09 18:06 | XRay Report ---
XR chest 1V ap INDICATION / CLINICAL INFORMATION: ETT placement. COMPARISON: 03/22/2016 FINDINGS: SUPPORT DEVICES: Endotracheal tube terminates 7.5 cm above the varun. Enteric catheter tip and side- port project in the stomach. HEART /PULMONARY VASCULATURE: No significant abnormality. LUNGS / PLEURA: No significant pulmonary or pleural abnormality. No pneumothorax. ADDITIONAL FINDINGS: No significant additional findings. IMPRESSION: 1. Endotracheal tube terminates 7.5 cm above the varun. Consider advancement by approximately 2 cm f or optimal placement. 2. Gastric position of enteric catheter. 3. No acute chest process. Signer Name: Dusty Bender MD Signed: 05/09/2021 6:01 PM Workstation Name: [id number]
[2021-05-09] MEDS ORDERED: LACTULOSE 20 GM/30 ML ORAL LIQD PO ONE (18:30)
[2021-05-09 19:11] LABS: Bacteria,Urine 1+ /HPF (Negative); Bilirubin,Urine NEG (Negative); Blood,Urine NEG (Negative); Color,Urine Yellow (Yellow); Mucus,Urine FEW /HPF; Protein,Urine <15 mg/dL mg/dL (Negative); Urobilinogen,Urine < 2.0 mg/dL (<2.0)
[2021-05-09 19:18] LABS: Benzodiazepines Screen,Urine Negative; Cannabinoid Screen,Urine Negative; Cocaine Screen,Urine Negative; Methadone Screen,Urine Negative; Opiate Screen,Urine Negative
[2021-05-09 19:31] LABS: Amphetamine Screen,Urine Positive
--- NOTE | 2021-05-09 19:46 | History and Physical Report ---
History of Present Illness Chief complaint: Unresponsive History of present illness: 26 YO Female with PTSD,PSA presents to ED for evaluation. Patient is intubated and on ventilatory support at the time my evaluation and is unable to provide history. Patient history taken from EMS staff, ED staff, as well as patient family who was made available via telephone for interview. As per family the patient took an unknown quantity of Benadryl tablets today in an attempt to take her own life. EMS was notified and upon arrival the patient was found to be in distress, lethargic, and experienced a witnessed seizure. Patient treated with supportive care and subsequently transported to [facility] for further care and evalu ation of the aforementioned symptoms. The patient experienced additional seizures in route and was treated with 2 mg of Ativan with resolution of seizure activity. Patient seen and evaluated in the emergency department. All lab and imaging studies reviewed. Patient was found to have a Lindsay Coma Score of 6 and was unable to protect her airway. Patient was intubated for airway protection. Patient admitted to ICU. Critical care team consulted. No reports of fever, chills, chest pain, palpitation, productive cough, skin rash, recent ill contacts, trauma or known exposure to COVID-19. No prior imaging for review. All medication listed at time of admission has been reconciled. Poison control notified in the emergency department. Past History Past Medical History: other (See HPI) Past Surgical History: tonsillectomy Social history: single. denies: smoking, alcohol abuse, prescription drug abuse Family history: no significant family history, other (Reviewed) Medications and Allergies Allergies Allergy/AdvReac Type Severity Reaction Status Date / Time No Known Allergies Allergy Verified 11/10/15 02:23 Home Medications Medication Instructions Recorded Confirmed Last Taken Type Nitrofurantoin Traill/M-Cryst 100 mg PO Q12HR #14 capsule 06/20/20 Unknown Rx [Macrobid CAP] risperiDONE [RisperDAL] 0.5 mg PO BID #60 tablet 06/20/20 Unknown Rx traZODone [Desyrel] 50 mg PO QHS #30 tablet 06/20/20 Unknown Rx Active Meds: Active Medications Hydrophilic Ointment (Lip Therapy Vaseline) 1 applic TP Q2HR PRN PRN Reason: Dry Lips Midazolam HCl 100 mg/ Sodium (Chloride) 100 mls @ 2 mls/hr IV TITR RADHAMES; Protocol Last Admin: 05/09/21 18:35 Dose: 2 mg/hr, 2 mls/hr Documented by: Potassium Chloride (Kcl 10meq/100ml) 10 meq in 100 mls @ 100 mls/hr IV Q1H RADHAMES Stop: 05/09/21 21:59 Multi-Ingred Cream/Lotion/Oil/Oint (Mineral Oil/Petrolatum, White Ophth Oint 3.5 Gm) 1 applic OU Q4HR PRN PRN Reason: Dry Eye(s) Senna/Docusate Sodium (Sennosides/Docusate Sodium 8.6/50 Mg Tab) 1 tab FEEDTUBE BID RADHAMES Review of Systems ROS unobtainable: due to endotracheal tube, due to mental status Exam - Constitutional Vitals: Temp Pulse Resp BP Pulse Ox 100 F H 127 H 16 117/82 100 05/09/21 17:18 05/09/21 18:30 05/09/21 17:38 05/09/21 18:30 05/09/21 18:30 General appearance: Present: mild distress - EENT Eyes: Present: PERRL, miosis ENT: hearing intact, clear oral mucosa - Neck Neck: Present: supple, normal ROM - Respiratory Respiratory effort: normal Respiratory: bilateral: CTA - Cardiovascular Heart Sounds: Present: S1 & S2. Absent: rub, click - Extremities Extremities: pulses symmetrical, No edema Peripheral Pulses: within normal limits - Abdominal General gastrointestinal: Present: soft, non-tender, non-distended, normal bowel sounds Female genitourinary: Present: normal - Integumentary Integumentary: Present: clear, warm, dry - Musculoskeletal Musculoskeletal: gait normal, strength equal bilaterally - Psychiatric Psychiatric: no appropriate mood/affect, no intact judgment & insight, no memory intact - Neurologic Neurologic: CNII-XII intact, moves all extremities HEART Score - HEART Score Troponin: Troponin T < 0.010 ng/mL (0.00-0.029) 05/09/21 17:21 Results - Labs CBC & Chem 7: 05/09/21 17:21 05/09/21 17:21 Labs: Abnormal lab results 05/09/21 05/09/21 05/09/21 Range/Units 17:21 17:21 17:21 Hgb 14.9 H (10.1-14.3) gm/dl Hct 45.0 H (30.3-42.9) % Seg Neutrophils % 71.7 H (40.0-70.0) % PT 15.0 H (12.2-14.9) Sec. POC ABG pO2 (83-108) mmHg ABG Oxyhemoglobin (94-98) ABG Potassium (3.40-4.50) mmol/L VBG pH (7.320-7.420) Sodium 134 L (137-145) mmol/L Potassium 3.1 L (3.6-5.0) mmol/L Chloride 96.6 L (98-107) mmol/L Carbon Dioxide 14 L (22-30) mmol/L Lactic Acid (0.7-2.0) mmol/L Ammonia (25-60) umol/L TSH (0.270-4.200) mlU/mL Salicylates (2.8-20.0) mg/dL Acetaminophen (10.0-30.0) ug/mL 05/09/21 05/09/21 05/09/21 Range/Units 17:21 17: 17:21 Hgb (10.1-14.3) gm/dl Hct (30.3-42.9) % Seg Neutrophils % (40.0-70.0) % PT (12.2-14.9) Sec. POC ABG pO2 (83-108) mmHg ABG Oxyhemoglobin (94-98) ABG Potassium (3.40-4.50) mmol/L VBG pH (7.320-7.420) Sodium (137-145) mmol/L Potassium (3.6-5.0) mmol/L Chloride (98-107) mmol/L Carbon Dioxide (22-30) mmol/L Lactic Acid 10.30 H* (0.7-2.0) mmol/L Ammonia 87.0 H (25-60) umol/L TSH 6.210 H (0.270-4.200) mlU/mL Salicylates (2.8-20.0) mg/dL Acetaminophen (10.0-30.0) ug/mL 05/09/21 05/09/21 05/09/21 Range/Units 17:21 17:21 17:51 Hgb (10.1-14.3) gm/dl Hct (30.3-42.9) % Seg Neutrophils % (40.0-70.0) % PT (12.2-14.9) Sec. POC ABG pO2 (83-108) mmHg ABG Oxyhemoglobin (94-98) ABG Potassium (3.40-4.50) mmol/L VBG pH 7.306 L (7.320-7.420) Sodium (137-145) mmol/L Potassium (3.6-5.0) mmol/L Chloride (98-107) mmol/L Carbon Dioxide (22-30) mmol/L Lactic Acid (0.7-2.0) mmol/L Ammonia (25-60) umol/L TSH (0.270-4.200) mlU/mL Salicylates < 0.3 L (2.8-20.0) mg/dL Acetaminophen 5.0 L (10.0-30.0) ug/mL 05/09/21 Range/Units 18:33 Hgb (10.1-14.3) gm/dl Hct (30.3-42.9) % Seg Neutrophils % (40.0-70.0) % PT (12.2-14.9) Sec. POC ABG pO2 478.4 H (83-108) mmHg ABG Oxyhemoglobin 98.8 H (94-98) ABG Potassium 3.1 L (3.40-4.50) mmol/L VBG pH (7.320-7.420) Sodium (137-145) mmol/L Potassium (3.6-5.0) mmol/L Chloride (98-107) mmol/L Carbon Dioxide (22-30) mmol/L Lactic Acid (0.7-2.0) mmol/L Ammonia (25-60) umol/L TSH (0.270-4.200) mlU/mL Salicylates (2.8-20.0) mg/dL Acetaminophen (10.0-30.0) ug/mL Assessment and Plan - Patient Problems (1) Acute respiratory failure Current Visit: Yes Status: Acute Qualifiers: Respiratory failure complication: hypoxia Qualified Code(s): J96.01 - Acute respiratory failure with hypoxia Plan to address problem: Patient intubated and on ventilatory support: Wean vent as tolerated, daily spontaneous breathing trial, sedation holiday, (2) Drug overdose, intentional Current Visit: Yes Status: Acute Qualifiers: Encounter type: initial encounter Qualified Code(s): T50.902A - Poisoning by unspecified drugs, medicaments and biological substances, intentional self- harm, initial encounter Plan to address problem: Poison control consulted: Suggestion is supportive care and use benzodiazepines as needed for any agitation. They recommend the normal tox work-up including EKG, UDS, blood alcohol level, acetaminophen/salicylate levels, and he also recommends a CK level, activated charcoal with sorbitol at 1 g/kg. (3) Suicide attempt Current Visit: Yes Status: Acute Plan to address problem: Mental health consult placed in the emergency department. (4) DVT prophylaxis Current Visit: Yes Status: Acute Plan to address problem: SCD to bilateral lower extremities while in bed, prophylactic anticoagulation
[2021-05-09] MEDS ORDERED: fentaNYL 100 MCG/2 ML INJ IV PRN (20:12)
--- NOTE | 2021-05-09 20:24 | Cat Scan Report ---
CT head/brain wo con INDICATION: Altered mental status. TECHNIQUE: Routine CT head. All CT scans at this location are performed using CT dose reduction for A VIOLETA by means of automated exposure control. COMPARISON: None. FINDINGS: Intracranial: Rm-white matter differentiation is maintained. No intracranial hemorrhage. No extra a xial collection. No hydrocephalus. No herniation. Sinuses: Paranasal sinuses and mastoid air cells are essentially clear. Orbits: Globes are intact. Calvarium: No acute fracture. IMPRESSION: 1. No acute intracranial abnormality. Signer Name: Denis Lomeil MD Signed: 05/09/2021 8:19 PM Workstation Name: [id number]
[2021-05-09] MEDS: fentaNYL DRIP Premix 2,000 MCG/100 ML BAG IV SCH (20:50)
[2021-05-09] MEDS: POTASSIUM CHLORIDE 10 MEQ 10 MEQ/100 ML BAG IV SCH (21:50)
[2021-05-09] MEDS ORDERED: SENNOSIDES/DOCUSATE SODIUM 8.6/50 MG TAB FEEDTUBE SCH (22:00)
[2021-05-09] MEDS ORDERED: FAMOTIDINE 20 MG/2 ML INJ IV SCH (22:00)
[2021-05-10] MEDS ORDERED: POTASSIUM CHLORIDE 10 MEQ 10 MEQ/100 ML BAG IV ONE ×2 (00:10→02:04)
[2021-05-10] MEDS: POTASSIUM CHLORIDE 10 MEQ 10 MEQ/100 ML BAG IV SCH ×2 (00:15→02:18)
[2021-05-10] MEDS: HEPARIN 5,000 UNIT/1 ML VIAL SUB-Q SCH ×3 (00:20→21:12)
--- NOTE | 2021-05-10 02:29 | XRay Report ---
CHEST 1 VIEW INDICATION / CLINICAL INFORMATION: follow up respiratory failure. FINDINGS: SUPPORT DEVICES: No significant change in position. HEART / MEDIASTINUM: The cardiomediastinal silhouette has not significantly changed in the interim. LUNGS / PLEURA: Increasing subsegmental atelectasis of the right upper lobe Signer Name: Jamie Fry MD Signed: 05/10/2021 2:24 AM Workstation Name: [id number]
[2021-05-10] MEDS: fentaNYL DRIP Premix 2,000 MCG/100 ML BAG IV SCH (04:30)
[2021-05-10 05:05] LABS: Hematocrit 42.7 % (30.3-42.9); Hemoglobin 14.5 gm/dl (10.1-14.3); Mean Corpuscular HGB Conc 34 % (30-34); Mean Corpuscular Volume 95 fl (79-97); Platelet Count 318 K/mm3 (140-440); Red Blood Count 4.51 M/mm3 (3.65-5.03)
[2021-05-10 05:24] LABS: Alanine Aminotransferase 11 units/L (7-56); Albumin 4.3 g/dL (3.9-5); Blood Urea Nitrogen 8 mg/dL (7-17); Calcium 9.3 mg/dL (8.4-10.2); Hemolysis Index 4
[2021-05-10 05:25] LABS: BUN/Creatinine Ratio 13
[2021-05-10 05:57] LABS: Band Neutrophils # (Manual) 0.2 K/mm3; Platelet Estimate Consistent w Auto; RBC Morphology Normal; Total Cells Counted 100
[2021-05-10] MEDS ORDERED: ACETAMINOPHEN 325 MG/10.15 ML ORAL LIQD UNIT DOSE FEEDTUBE PRN (07:31)
--- NOTE | 2021-05-10 09:06 | Event Note ---
Date: 05/10/21 Patient brought in via EMS for possible drug overdose. Patient now intubated and sedated. Per ED note, patient had 2 witnessed seizures by EMS that aborted with ativan. No prior history of seizure per the family, only psych history. Per ED note, GCS was 6 and was intubated for airway protection. Per nursing notes patient started to wake up and was agitated. Physicians elected to sedate instead of extubate and placed consult to ICU. NO abg done prior to extubation. Post intubation ABG was normal. No ABG done this am but on minimal settings. CXR is clear. Asked nursing to stop fent and I have discontinued all sedatives and vent protocol orders. Spoke with RT to extubate. Patient will not need ICU and can be downgraded.
[2021-05-10] MEDS ORDERED: ONDANSETRON 4 MG/2 ML INJ ONE (10:19)
[2021-05-10] MEDS ORDERED: LORazepam 2 MG/ML VIAL IV ONE (10:38)
--- NOTE | 2021-05-10 11:16 | Electrocardiograph Report ---
[facility] Test Date: 2021-05-09 Test Time: 17:41:12 Pat Name: STEVEN HERNANDEZ Department: Room: [facility] Gender: F Pmp: MEGAN NAVARRETE : 1995 Requested By: ELVIN STRATTON Order Number: [id number] Reading MD: Kamron George Measurements Intervals [place] Rate: 153 P: 244 DE: 116 QRS: 27 QRSD: 136 T: 82 QT: 329 QTc: 525 Interpretive Statements Sustained ventricular tachycardia No previous ECG available for comparison Electronically Signed On 05-10-2021 11:15:39 EDT by Kamron George
--- NOTE | 2021-05-10 11:18 | Electrocardiograph Report ---
[facility] Test Date: 2021-05-09 Test Time: 23:12:38 Pat Name: STEVEN HERNANDEZ Department: Room: [facility] Gender: F Wool Presser: : 1995 Requested By: FELICIANO SZYMANSKI Order Number: [id number] Reading MD: Kamron George Measurements Intervals [place] Rate: 99 P: 81 [place]: 171 QRS: 65 QRSD: 82 T: 19 QT: 374 QTc: 481 Interpretive Statements Sinus rhythm Biatrial enlargement Compared to ECG 05/09/2021 17:41:12 Atrial abnormality now present Electronically Signed On 05-10-2021 11:18:11 EDT by Kamron George
[2021-05-10] MEDS ORDERED: ONDANSETRON 4 MG/2 ML INJ IV PRN (12:07)
--- NOTE | 2021-05-10 12:33 | Progress Note ---
<BRISEYDANERY H. - Last Filed: 05/10/21 14:24> Assessment and Plan Assessment and plan: This is a 26-year-old female with paranoid schizophrenia, depression, PTSD who was admitted after intentional drug overdose, suicide attempt and intubated for airway protection Problem list Acute respiratory failure Intentional drug overdose Suicide attempt Leukocytosis Hyperammonemia Elevated TSH Acute respiratory failure -Patient was intubated per ED notes for airway protection -Patient was extubated 05/10 by CCM and downgraded from ICU to the floor -Supplemental oxygenation as needed -Pulmonary hygiene Intentional drug overdose -Patient received activated charcoal per poison control who also suggested benzodiazepines for agitation -UDS positive for amphetamines -Psychiatric consult, appreciate recommendations -Patient needs sitter at bedside Suicide attempt -Psychiatric consulted, appreciate recommendations -According to family patient has a history of polysubstance drug abuse including methamphetamine and heroin with a history of overdose incidents -According to family patient is a paranoid schizophrenic with PTSD and depression Leukocytosis -Likely reactive -Trend CBC Hyperammonemia -Presented with a ammonia of 87 -Trend ammonia Elevated TSH -05/09 TSH 6.2, 05/10 T4 1.6 -We will need to follow-up with PCP to recheck thyroid studies when not in acute phase Hyponatremia, resolved -Presented with a sodium of 134, 05/10 sodium 138 Hypokalemia, resolved -Presented with a potassium of 3.1, repleted and repeat is 3.7 Hypochloremia, resolved -Presented with a chloride of 96.629 chloride 101.5 Metabolic acidosis, resolved -Presented with a CO2 of 14 on BMP, 05/10 CO2 24 on BMP Lactic acidosis, resolved -Presented with a lactic acid of 10.3, 05/10 lactic acid 1 DVT/GI prophylaxis: SCDs to bilateral lower extremities while in bed, PPI, heparin subcu Disposition: Transfer to the floor Lines: PIV, NG tube History Interval history: This is a 26-year-old female with PTSD, depression, paranoid schizophrenia and anxiety, polysubstance abuse who presented to the emergency department after reported ingestion of unknown quantity of Benadryl tablets in a suicide attempt. Upon EMS arrival patient was found to be in distress, lethargic and expressive witnessed seizure which was aborted with 2 mg of Ativan. Upon arrival to the emergency department patient had a reported GCS of 6 and inability to protect airway and was intubated for airway protection. Poison control was contacted and recommended activated charcoal and sorbitol which was administered via OG tube. Work-up in the emergency department revealed hyponatremia, hypokalemia, hypochloremia, metabolic acidosis, lactic acidosis, elevated TSH and hyperammonia, anemia patient was admitted to the hospital service for acute respiratory failure, intentional drug overdose, and suicide attempt with consults to CCM and psychiatric services. 05/10: Patient sedation was changed from bed to commode however patient was extubated by CCM shortly afterwards. Patient will be downgraded from ICU to the floor. The psych services has been consulted today. COVID-19 PCR pending. Hospitalist Physical - Constitutional Vitals: Temp Pulse Resp BP Pulse Ox 100 F H 90 16 105/72 100 05/09/21 17:18 05/10/21 07:49 05/10/21 06:16 05/10/21 07:49 05/10/21 07:49 General appearance: Present: disheveled - EENT Eyes: Present: PERRL, EOM intact ENT: poor dentition - Neck Neck: Present: normal ROM - Respiratory Respiratory effort: normal Respiratory: bilateral: CTA - Cardiovascular Rhythm: regular Heart Sounds: Present: S1 & S2. Absent: systolic murmur, diastolic murmur - Extremities Extremities: no ischemia, pulses intact, pulses symmetrical, No edema, normal temperature, normal color, Full ROM Peripheral Pulses: within normal limits - Abdominal General gastrointestinal: soft, non-tender, non-distended, normal bowel sounds - Integumentary Integumentary: Present: warm, dry - Psychiatric Psychiatric: agitated, depressed - Neurologic Neurologic: no focal deficits, moves all extremities - Allied Health Allied health notes reviewed: nursing, social work HEART Score - HEART Score Troponin: Troponin T < 0.010 ng/mL (0.00-0.029) 05/09/21 17:21 Results - Labs CBC & Chem 7: 05/10/21 04:18 05/10/21 04:18 Labs: Laboratory Last Values WBC 19.2 K/mm3 (4.5-11.0) H 05/10/21 04:18 RBC 4.51 M/mm3 (3.65-5.03) 05/10/21 04:18 Hgb 14.5 gm/dl (10.1-14.3) H 05/10/21 04:18 Hct 42.7 % (30.3-42.9) 05/10/21 04:18 MCV 95 fl (79-97) 05/10/21 04:18 MCH 32 pg (28-32) 05/10/21 04:18 MCHC 34 % (30-34) 05/10/21 04:18 RDW 14.0 % (13.2-15.2) 05/10/21 04:18 Plt Count 318 K/mm3 (140-440) 05/10/21 04:18 Lymph % (Auto) 19.6 % (13.4-35.0) 05/09/21 17:21 [place] % (Auto) 6.4 % (0.0-7.3) 05/09/21 17:21 Eos % (Auto) 1.1 % (0.0-4.3) 05/09/21 17:21 Baso % (Auto) 1.2 % (0.0-1.8) 05/09/21 17:21 Lymph # (Auto) 1.8 K/mm3 (1.2-5.4) 05/09/21 17:21 [place] # (Auto) 0.6 K/mm3 (0.0-0.8) 05/09/21 17:21 Eos # (Auto) 0.1 K/mm3 (0.0-0.4) 05/09/21 17:21 Baso # (Auto) 0.1 K/mm3 (0.0-0.1) 05/09/21 17:21 Add Manual Diff Complete 05/10/21 04:18 Total Counted 100 05/10/21 04:18 Seg Neutrophils % Synthetic Soil Blocks Pulper 05/10/21 04:18 Seg Neuts % (Manual) 88.0 % (40.0-70.0) H 05/10/21 04:18 Band Neutrophils % 1.0 % 05/10/21 04:18 Lymphocytes % (Manual) 6.0 % (13.4-35.0) L 05/10/21 04:18 Monocytes % (Manual) 5.0 % (0.0-7.3) 05/10/21 04:18 Nucleated RBC % Not Reportable 05/10/21 04:18 Seg Neutrophils # 6.5 K/mm3 (1.8-7.7) 05/09/21 17:21 Seg Neutrophils # Man 16.9 K/mm3 (1.8-7.7) H 05/10/21 04:18 Band Neutrophils # 0.2 K/mm3 05/10/21 04:18 Lymphocytes # (Manual) 1.2 K/mm3 (1.2-5.4) 05/10/21 04:18 Abs React Lymphs (Man) 0.0 K/mm3 05/10/21 04:18 Monocytes # (Manual) 1.0 K/mm3 (0.0-0.8) H 05/10/21 04:18 Eosinophils # (Manual) 0.0 K/mm3 (0.0-0.4) 05/10/21 04:18 Basophils # (Manual) 0.0 K/mm3 (0.0-0.1) 05/10/21 04:18 Metamyelocytes # 0.0 K/mm3 05/10/21 04:18 Myelocytes # 0.0 K/mm3 05/10/21 04:18 Promyelocytes # 0.0 K/mm3 05/10/21 04:18 Blast Cells # 0.0 K/mm3 05/10/21 04:18 WBC Morphology Not Reportable 05/10/21 04:18 Hypersegmented Neuts Not Reportable 05/10/21 04:18 Hyposegmented Neuts Not Reportable 05/10/21 04:18 Hypogranular Neuts Not Reportable 05/10/21 04:18 Smudge Cells Not Reportable 05/10/21 04:18 Toxic Granulation Not Reportable 05/10/21 04:18 Toxic Vacuolation Not Reportable 05/10/21 04:18 Dohle Bodies Not Reportable 05/10/21 04:18 Pelger-Huet Anomaly Not Reportable 05/10/21 04:18 Pauline Rods Not Reportable 05/10/21 04:18 Platelet Estimate Consistent w auto 05/10/21 04:18 Clumped Platelets Not Reportable 05/10/21 04:18 Plt Clumps, EDTA Not Reportable 05/10/21 04:18 Large Platelets Not Reportable 05/10/21 04:18 Giant Platelets Not Reportable 05/10/21 04:18 Platelet Satelliting Not Reportable 05/10/21 04:18 Plt Morphology Comment Not Reportable 05/10/21 04:18 RBC Morphology Normal 05/10/21 04:18 Dimorphic RBCs Not Reportable 05/10/21 04:18 Polychromasia Not Reportable 05/10/21 04:18 Hypochromasia Not Reportable 05/10/21 04:18 Poikilocytosis Not Reportable 05/10/21 04:18 Anisocytosis Not Reportable 05/10/21 04:18 Microcytosis Not Reportable 05/10/21 04:18 Macrocytosis Not Reportable 05/10/21 04:18 Spherocytes Not Reportable 05/10/21 04:18 Pappenheimer Bodies Not Reportable 05/10/21 04:18 Sickle Cells Not Reportable 05/10/21 04:18 Target Cells Not Reportable 05/10/21 04:18 Tear Drop Cells Not Reportable 05/10/21 04:18 Ovalocytes Not Reportable 05/10/21 04:18 Helmet Cells Not Reportable 05/10/21 04:18 [place] Bodies Not Reportable 05/10/21 04:18 Levering Rings Not Reportable 05/10/21 04:18 Caitlin Cells Not Reportable 05/10/21 04:18 Bite Cells Not Reportable 05/10/21 04:18 Crenated Cell Not Reportable 05/10/21 04:18 Elliptocytes Not Reportable 05/10/21 04:18 Acanthocytes (Spur) Not Reportable 05/10/21 04:18 Rouleaux Not Reportable 05/10/21 04:18 Hemoglobin C Crystals Not Reportable 05/10/21 04:18 Schistocytes Not Reportable 05/10/21 04:18 Malaria parasites Not Reportable 05/10/21 04:18 Isaac Bodies Not Reportable 05/10/21 04:18 Hem Pathologist Commnt No 05/10/21 04:18 PT 15.0 Sec. (12.2-14.9) H 05/09/21 17:21 INR 1.12 (0.87-1.13) 05/09/21 17:21 ABG pH 7.419 (7.320-7.450) 05/09/21 18:33 POC ABG pCO2 33.3 mmHg (32.0-48.0) 05/09/21 18:33 POC ABG pO2 478.4 mmHg (83-108) H 05/09/21 18:33 POC ABG HCO3 21.1 05/09/21 18:33 ABG O2 Saturation 99.7 (0-100) 05/09/21 18:33 POC ABG Base Excess -2.6 05/09/21 18:33 ABG Hemoglobin 14.1 (12.0-17.5) 05/09/21 18:33 ABG Oxyhemoglobin 98.8 (94-98) H 05/09/21 18:33 ABG Methemoglobin 0 (0.0-1.5) 05/09/21 18:33 ABG Sodium 140.7 mmol/L (136.0-145.0) 05/09/21 18:33 ABG Potassium 3.1 mmol/L (3.40-4.50) L 05/09/21 18:33 ABG Chloride 102.0 mmol/L (98-107) 05/09/21 18:33 ABG Glucose 85 mg/dL (65-95) 05/09/21 18:33 ABG Lactate 1.38 (0.18-30.0) 05/09/21 18:33 VBG pH 7.306 (7.320-7.420) L 05/09/21 17:51 Carboxyhemoglobin 0.9 (0.5-1.5) 05/09/21 18:33 FiO2 % 100.0 05/09/21 18:33 Sodium 138 mmol/L (137-145) 05/10/21 04:18 Potassium 3.7 mmol/L (3.6-5.0) 05/10/21 04:18 Chloride 101.5 mmol/L (98-107) 05/10/21 04:18 Carbon Dioxide 24 mmol/L (22-30) D 05/10/21 04:18 Anion Gap 16 mmol/L 05/10/21 04:18 BUN 8 mg/dL (7-17) 05/10/21 04:18 Creatinine 0.6 mg/dL (0.6-1.2) 05/10/21 04:18 Estimated GFR > 60 ml/min 05/10/21 04:18 BUN/Creatinine Ratio 13 % 05/10/21 04:18 Glucose 118 mg/dL (65-100) H 05/10/21 04:18 Lactic Acid 1.00 mmol/L (0.7-2.0) 05/09/21 20:00 Calcium 9.3 mg/dL (8.4-10.2) 05/10/21 04:18 Magnesium 2.20 mg/dL (1.7-2.3) 05/09/21 17:21 Total Bilirubin 0.60 mg/dL (0.1-1.2) 05/10/21 04:18 AST 17 units/L (5-40) 05/10/21 04:18 ALT 11 units/L (7-56) 05/10/21 04:18 Alkaline Phosphatase 90 units/L (35-129) 05/10/21 04:18 Ammonia 87.0 umol/L (25-60) H 05/09/21 17:21 Total Creatine Kinase 70 units/L (30-135) 05/09/21 17:21 Troponin T < 0.010 ng/mL (0.00-0.029) 05/09/21 17:21 Total Protein 6.9 g/dL (6.3-8.2) 05/10/21 04:18 Albumin 4.3 g/dL (3.9-5) 05/10/21 04:18 Albumin/Globulin Ratio 1.7 % 05/10/21 04:18 TSH 6.210 mlU/mL (0.270-4.200) H 05/09/21 17:21 Free T4 1.66 ng/dL (0.76-1.46) H 05/10/21 08:16 HCG, Qual Negative (Negative) 05/09/21 17:21 Arterial Blood Glucose 85 mg/dL (65-95) 05/09/21 18:33 Urine Color Yellow (Yellow) 05/09/21 18:47 Urine Turbidity Clear (Clear) 05/09/21 18:47 Urine pH 7.0 (5.0-7.0) 05/09/21 18:47 Ur Specific [place] 1.010 (1.003-1.030) 05/09/21 18:47 Urine Protein <15 mg/dl mg/dL (Negative) 05/09/21 18:47 Urine Glucose (UA) Neg mg/dL (Negative) 05/09/21 18:47 Urine Ketones Tr mg/dL (Negative) 05/09/21 18:47 Urine Blood Neg (Negative) 05/09/21 18:47 Urine Nitrite Neg (Negative) 05/09/21 18:47 Urine Bilirubin Neg (Negative) 05/09/21 18:47 Urine Urobilinogen < 2.0 mg/dL (<2.0) 05/09/21 18:47 Ur Leukocyte Esterase Neg (Negative) 05/09/21 18:47 Urine WBC (Auto) 1.0 /HPF (0.0-6.0) 05/09/21 18:47 Urine RBC (Auto) 3.0 /HPF (0.0-6.0) 05/09/21 18:47 U Epithel Cells (Auto) 1.0 /HPF (0-13.0) 05/09/21 18:47 Urine Bacteria (Auto) 1+ /HPF (Negative) 05/09/21 18:47 Urine Mucus Few /HPF 05/09/21 18:47 Salicylates < 0.3 mg/dL (2.8-20.0) L 05/09/21 17:21 Urine Opiates Screen Negative 05/09/21 18:47 Urine Methadone Screen Negative 05/09/21 18:47 Acetaminophen 5.0 ug/mL (10.0-30.0) L 05/09/21 17:21 Ur Barbiturates Screen Negative 05/09/21 18:47 Ur Phencyclidine Scrn Negative 05/09/21 18:47 Ur Amphetamines Screen Positive 05/09/21 18:47 U Benzodiazepines Scrn Negative 05/09/21 18:47 Urine Cocaine Screen Negative 05/09/21 18:47 U Marijuana (THC) Screen Negative 05/09/21 18:47 Drugs of Abuse Note Disclamer 05/09/21 18:47 Plasma/Serum Alcohol < 0.01 % (0-0.07) 05/09/21 17:21 Microbiology: Microbiology 05/09/21 20:00 Tracheal Aspirate Sputum Culture - Preliminary 05/09/21 17:21 Peripheral/Venous Blood Culture - Preliminary Culture in Progress 05/09/21 17:27 Peripheral/Venous Blood Culture - Preliminary Culture in Progress Active Medications - Current Medications Current Medications: Generic Name Dose Route Start Last Admin Trade Name Freq PRN Reason Stop Dose Admin Acetaminophen 650 mg 05/10/21 07:31 Acetaminophen 325 Mg/10.15 Ml Oral Liqd Unit Dose FEEDTUBE Q6H PRN Pain MILD(1-3)/Fever >100.5/JONES Famotidine 20 mg 05/10/21 10:00 Famotidine 20 Mg/2 Ml Inj IV BID RADHAMES Heparin Sodium (Porcine) 5,000 unit 05/09/21 22:00 05/10/21 00:20 Heparin 5,000 Unit/1 Ml Vial SUB-Q 5,000 unit Q12HR RADHAMES Administration Ondansetron HCl 4 mg 05/10/21 12:07 Ondansetron 4 Mg/2 Ml Inj IV Q6H PRN Nausea And Vomiting Sodium Chloride 10 ml 05/09/21 22:00 05/09/21 22:12 Sodium Chloride 0.9% 10 Ml Flush Syringe IV 10 ml BID RADHAMES Administration Sodium Chloride 10 ml 05/09/21 19:46 Sodium Chloride 0.9% 10 Ml Flush Syringe IV PRN PRN LINE FLUSH Nutrition/Malnutrition Assess - Dietary Evaluation Nutrition/Malnutrition Findings: Nutrition Notes Start: 05/10/21 07:41 Freq: Status: Active Protocol: Document 05/10/21 07:41 (Rec: 05/10/21 07:46 [email or web address]) Nutrition Notes Need for Assessment generated from: MD Order Initial or Follow up Assessment Current Diagnosis Respiratory Failure Other Pertinent Diagnosis suicide attempt, intentional drug overdose Current Diet NPO Labs/Tests Reviewed Pertinent Medications Reviewed Height 5 ft 6 in Weight 65 kg [place] Body Weight (kg) 59.09 BMI 23.1 Weight Status Appropriate Subjective/Other Information MD order to evaluate nutritional intakes. Pt on vent and on hold in ED. Burn Absent Trauma Absent Current % PO Negligible #1 Nutrition Diagnosis Inadequate oral intake Etiology ARF As Evidenced by Signs and Symptoms pt on vent and unable to consume PO Is patient on ventilator? Yes Is Patient Ambulatory and/or Out of Bed No REE-([facility]-confined to bed) [phone] Calculation Used for Recommendations [facility] Additional Notes Protein: (1.2-2g/kg) 78-130g Fluid: 1 ml/kcal Nutrition Intervention Change Diet Order: Start TF or extubate Nutrition Support: Vital AF 1.2 at 55 ml/hr Flush 100ml q4h Kcal 1,584 Protein (gm) 99 Fluid (mL) 1,071 Goal #1 Start TF or extubation and diet advancement Anticipated Discharge Needs: Unable to determine at this time Follow-Up By: 05/12/21 Additional Comments FU for TF consult or extubation <FELICIANO SZYMANSKI - Last Filed: 05/11/21 09:25> Assessment and Plan Assessment and plan: Agree with assessment and plan as outlined by nurse practitioner as above. I have personally examined the patient, reviewed the chart, and spoke with the family. Patient has history of suicidal ideation, history of drug abuse, history of psychiatric inpatient treatment. Patient was very agitated, was in restraints in the ED. Patient was extubated, no need for ICU care at this time. Patient will be admitted to the hospital for evaluation by psychiatry for suicidal ideation. Hospitalist Physical - Constitutional Vitals: Temp Pulse Resp BP Pulse Ox 98.3 F 70 20 98/59 96 05/11/21 05:54 05/11/21 05:54 05/11/21 05:54 05/11/21 05:54 05/11/21 05:54 HEART Score - HEART Score Troponin: Troponin T < 0.010 ng/mL (0.00-0.029) 05/09/21 17:21 Results - Labs CBC & Chem 7: 05/10/21 04:18 05/10/21 04:18 Labs: Laboratory Last Values WBC 19.2 K/mm3 (4.5-11.0) H 05/10/21 04:18 RBC 4.51 M/mm3 (3.65-5.03) 05/10/21 04:18 Hgb 14.5 gm/dl (10.1-14.3) H 05/10/21 04:18 Hct 42.7 % (30.3-42.9) 05/10/21 04:18 MCV 95 fl (79-97) 05/10/21 04:18 MCH 32 pg (28-32) 05/10/21 04:18 MCHC 34 % (30-34) 05/10/21 04:18 RDW 14.0 % (13.2-15.2) 05/10/21 04:18 Plt Count 318 K/mm3 (140-440) 05/10/21 04:18 Lymph % (Auto) 19.6 % (13.4-35.0) 05/09/21 17:21 [place] % (Auto) 6.4 % (0.0-7.3) 05/09/21 17:21 Eos % (Auto) 1.1 % (0.0-4.3) 05/09/21 17:21 Baso % (Auto) 1.2 % (0.0-1.8) 05/09/21 17:21 Lymph # (Auto) 1.8 K/mm3 (1.2-5.4) 05/09/21 17:21 [place] # (Auto) 0.6 K/mm3 (0.0-0.8) 05/09/21 17:21 Eos # (Auto) 0.1 K/mm3 (0.0-0.4) 05/09/21 17:21 Baso # (Auto) 0.1 K/mm3 (0.0-0.1) 05/09/21 17:21 Add Manual Diff Complete 05/10/21 04:18 Total Counted 100 05/10/21 04:18 Seg Neutrophils % Synthetic Soil Blocks Pulper 05/10/21 04:18 Seg Neuts % (Manual) 88.0 % (40.0-70.0) H 05/10/21 04:18 Band Neutrophils % 1.0 % 05/10/21 04:18 Lymphocytes % (Manual) 6.0 % (13.4-35.0) L 05/10/21 04:18 Monocytes % (Manual) 5.0 % (0.0-7.3) 05/10/21 04:18 Nucleated RBC % Not Reportable 05/10/21 04:18 Seg Neutrophils # 6.5 K/mm3 (1.8-7.7) 05/09/21 17:21 Seg Neutrophils # Man 16.9 K/mm3 (1.8-7.7) H 05/10/21 04:18 Band Neutrophils # 0.2 K/mm3 05/10/21 04:18 Lymphocytes # (Manual) 1.2 K/mm3 (1.2-5.4) 05/10/21 04:18 Abs React Lymphs (Man) 0.0 K/mm3 05/10/21 04:18 Monocytes # (Manual) 1.0 K/mm3 (0.0-0.8) H 05/10/21 04:18 Eosinophils # (Manual) 0.0 K/mm3 (0.0-0.4) 05/10/21 04:18 Basophils # (Manual) 0.0 K/mm3 (0.0-0.1) 05/10/21 04:18 Metamyelocytes # 0.0 K/mm3 05/10/21 04:18 Myelocytes # 0.0 K/mm3 05/10/21 04:18 Promyelocytes # 0.0 K/mm3 05/10/21 04:18 Blast Cells # 0.0 K/mm3 05/10/21 04:18 WBC Morphology Not Reportable 05/10/21 04:18 Hypersegmented Neuts Not Reportable 05/10/21 04:18 Hyposegmented Neuts Not Reportable 05/10/21 04:18 Hypogranular Neuts Not Reportable 05/10/21 04:18 Smudge Cells Not Reportable 05/10/21 04:18 Toxic Granulation Not Reportable 05/10/21 04:18 Toxic Vacuolation Not Reportable 05/10/21 04:18 Dohle Bodies Not Reportable 05/10/21 04:18 Pelger-Huet Anomaly Not Reportable 05/10/21 04:18 Pauline Rods Not Reportable 05/10/21 04:18 Platelet Estimate Consistent w auto 05/10/21 04:18 Clumped Platelets Not Reportable 05/10/21 04:18 Plt Clumps, EDTA Not Reportable 05/10/21 04:18 Large Platelets Not Reportable 05/10/21 04:18 Giant Platelets Not Reportable 05/10/21 04:18 Platelet Satelliting Not Reportable 05/10/21 04:18 Plt Morphology Comment Not Reportable 05/10/21 04:18 RBC Morphology Normal 05/10/21 04:18 Dimorphic RBCs Not Reportable 05/10/21 04:18 Polychromasia Not Reportable 05/10/21 04:18 Hypochromasia Not Reportable 05/10/21 04:18 Poikilocytosis Not Reportable 05/10/21 04:18 Anisocytosis Not Reportable 05/10/21 04:18 Microcytosis Not Reportable 05/10/21 04:18 Macrocytosis Not Reportable 05/10/21 04:18 Spherocytes Not Reportable 05/10/21 04:18 Pappenheimer Bodies Not Reportable 05/10/21 04:18 Sickle Cells Not Reportable 05/10/21 04:18 Target Cells Not Reportable 05/10/21 04:18 Tear Drop Cells Not Reportable 05/10/21 04:18 Ovalocytes Not Reportable 05/10/21 04:18 Helmet Cells Not Reportable 05/10/21 04:18 [place] Bodies Not Reportable 05/10/21 04:18 Levering Rings Not Reportable 05/10/21 04:18 Caitlin Cells Not Reportable 05/10/21 04:18 Bite Cells Not Reportable 05/10/21 04:18 Crenated Cell Not Reportable 05/10/21 04:18 Elliptocytes Not Reportable 05/10/21 04:18 Acanthocytes (Spur) Not Reportable 05/10/21 04:18 Rouleaux Not Reportable 05/10/21 04:18 Hemoglobin C Crystals Not Reportable 05/10/21 04:18 Schistocytes Not Reportable 05/10/21 04:18 Malaria parasites Not Reportable 05/10/21 04:18 Isaac Bodies Not Reportable 05/10/21 04:18 Hem Pathologist Commnt No 05/10/21 04:18 PT 15.0 Sec. (12.2-14.9) H 05/09/21 17:21 INR 1.12 (0.87-1.13) 05/09/21 17:21 ABG pH 7.419 (7.320-7.450) 05/09/21 18:33 POC ABG pCO2 33.3 mmHg (32.0-48.0) 05/09/21 18:33 POC ABG pO2 478.4 mmHg (83-108) H 05/09/21 18:33 POC ABG HCO3 21.1 05/09/21 18:33 ABG O2 Saturation 99.7 (0-100) 05/09/21 18:33 POC ABG Base Excess -2.6 05/09/21 18:33 ABG Hemoglobin 14.1 (12.0-17.5) 05/09/21 18:33 ABG Oxyhemoglobin 98.8 (94-98) H 05/09/21 18:33 ABG Methemoglobin 0 (0.0-1.5) 05/09/21 18:33 ABG Sodium 140.7 mmol/L (136.0-145.0) 05/09/21 18:33 ABG Potassium 3.1 mmol/L (3.40-4.50) L 05/09/21 18:33 ABG Chloride 102.0 mmol/L (98-107) 05/09/21 18:33 ABG Glucose 85 mg/dL (65-95) 05/09/21 18:33 ABG Lactate 1.38 (0.18-30.0) 05/09/21 18:33 VBG pH 7.306 (7.320-7.420) L 05/09/21 17:51 Carboxyhemoglobin 0.9 (0.5-1.5) 05/09/21 18:33 FiO2 % 100.0 05/09/21 18:33 Sodium 138 mmol/L (137-145) 05/10/21 04:18 Potassium 3.7 mmol/L (3.6-5.0) 05/10/21 04:18 Chloride 101.5 mmol/L (98-107) 05/10/21 04:18 Carbon Dioxide 24 mmol/L (22-30) D 05/10/21 04:18 Anion Gap 16 mmol/L 05/10/21 04:18 BUN 8 mg/dL (7-17) 05/10/21 04:18 Creatinine 0.6 mg/dL (0.6-1.2) 05/10/21 04:18 Estimated GFR > 60 ml/min 05/10/21 04:18 BUN/Creatinine Ratio 13 % 05/10/21 04:18 Glucose 118 mg/dL (65-100) H 05/10/21 04:18 Lactic Acid 1.00 mmol/L (0.7-2.0) 05/09/21 20:00 Calcium 9.3 mg/dL (8.4-10.2) 05/10/21 04:18 Magnesium 2.20 mg/dL (1.7-2.3) 05/09/21 17:21 Total Bilirubin 0.60 mg/dL (0.1-1.2) 05/10/21 04:18 AST 17 units/L (5-40) 05/10/21 04:18 ALT 11 units/L (7-56) 05/10/21 04:18 Alkaline Phosphatase 90 units/L (35-129) 05/10/21 04:18 Ammonia 87.0 umol/L (25-60) H 05/09/21 17:21 Total Creatine Kinase 70 units/L (30-135) 05/09/21 17:21 Troponin T < 0.010 ng/mL (0.00-0.029) 05/09/21 17:21 Total Protein 6.9 g/dL (6.3-8.2) 05/10/21 04:18 Albumin 4.3 g/dL (3.9-5) 05/10/21 04:18 Albumin/Globulin Ratio 1.7 % 05/10/21 04:18 TSH 6.210 mlU/mL (0.270-4.200) H 05/09/21 17:21 Free T4 1.66 ng/dL (0.76-1.46) H 05/10/21 08:16 HCG, Qual Negative (Negative) 05/09/21 17:21 Arterial Blood Glucose 85 mg/dL (65-95) 05/09/21 18:33 Urine Color Yellow (Yellow) 05/09/21 18:47 Urine Turbidity Clear (Clear) 05/09/21 18:47 Urine pH 7.0 (5.0-7.0) 05/09/21 18:47 Ur Specific [place] 1.010 (1.003-1.030) 05/09/21 18:47 Urine Protein <15 mg/dl mg/dL (Negative) 05/09/21 18:47 Urine Glucose (UA) Neg mg/dL (Negative) 05/09/21 18:47 Urine Ketones Tr mg/dL (Negative) 05/09/21 18:47 Urine Blood Neg (Negative) 05/09/21 18:47 Urine Nitrite Neg (Negative) 05/09/21 18:47 Urine Bilirubin Neg (Negative) 05/09/21 18:47 Urine Urobilinogen < 2.0 mg/dL (<2.0) 05/09/21 18:47 Ur Leukocyte Esterase Neg (Negative) 05/09/21 18:47 Urine WBC (Auto) 1.0 /HPF (0.0-6.0) 05/09/21 18:47 Urine RBC (Auto) 3.0 /HPF (0.0-6.0) 05/09/21 18:47 U Epithel Cells (Auto) 1.0 /HPF (0-13.0) 05/09/21 18:47 Urine Bacteria (Auto) 1+ /HPF (Negative) 05/09/21 18:47 Urine Mucus Few /HPF 05/09/21 18:47 Salicylates < 0.3 mg/dL (2.8-20.0) L 05/09/21 17:21 Urine Opiates Screen Negative 05/09/21 18:47 Urine Methadone Screen Negative 05/09/21 18:47 Acetaminophen 5.0 ug/mL (10.0-30.0) L 05/09/21 17:21 Ur Barbiturates Screen Negative 05/09/21 18:47 Ur Phencyclidine Scrn Negative 05/09/21 18:47 Ur Amphetamines Screen Positive 05/09/21 18:47 U Benzodiazepines Scrn Negative 05/09/21 18:47 Urine Cocaine Screen Negative 05/09/21 18:47 U Marijuana (THC) Screen Negative 05/09/21 18:47 Drugs of Abuse Note Disclamer 05/09/21 18:47 Plasma/Serum Alcohol < 0.01 % (0-0.07) 05/09/21 17:21 Microbiology: Microbiology 05/09/21 17:21 Peripheral/Venous Blood Culture - Preliminary NO GROWTH AFTER 24 HOURS 05/09/21 17:27 Peripheral/Venous Blood Culture - Preliminary NO GROWTH AFTER 24 HOURS 05/09/21 20:00 Tracheal Aspirate Sputum Culture - Preliminary Active Medications - Current Medications Current Medications: Generic Name Dose Route Start Last Admin Trade Name Freq PRN Reason Stop Dose Admin Acetaminophen 650 mg 05/10/21 07:31 Acetaminophen 325 Mg/10.15 Ml Oral Liqd Unit Dose FEEDTUBE Q6H PRN Pain MILD(1-3)/Fever >100.5/JONES Famotidine 20 mg 05/10/21 10:00 05/10/21 21:12 Famotidine 20 Mg/2 Ml Inj IV 20 mg BID RADHAMES Administration Heparin Sodium (Porcine) 5,000 unit 05/09/21 22:00 05/10/21 21:12 Heparin 5,000 Unit/1 Ml Vial SUB-Q 5,000 unit Q12HR RADHAMES Administration Ondansetron HCl 4 mg 05/10/21 12:07 Ondansetron 4 Mg/2 Ml Inj IV Q6H PRN Nausea And Vomiting Sodium Chloride 10 ml 05/09/21 22:00 05/10/21 16:53 Sodium Chloride 0.9% 10 Ml Flush Syringe IV Not Given BID RADHAMES Sodium Chloride 10 ml 05/09/21 19:46 Sodium Chloride 0.9% 10 Ml Flush Syringe IV PRN PRN LINE FLUSH Nutrition/Malnutrition Assess - Dietary Evaluation Nutrition/Malnutrition Findings: Nutrition Notes Start: 05/10/21 07:41 Freq: Status: Active Protocol: Document 05/10/21 07:41 (Rec: 05/10/21 07:46 [id number]) Nutrition Notes Need for Assessment generated from: MD Order Initial or Follow up Assessment Current Diagnosis Respiratory Failure Other Pertinent Diagnosis suicide attempt, intentional drug overdose Current Diet NPO Labs/Tests Reviewed Pertinent Medications Reviewed Height 5 ft 6 in Weight 65 kg [place] Body Weight (kg) 59.09 BMI 23.1 Weight Status Appropriate Subjective/Other Information MD order to evaluate nutritional intakes. Pt on vent and on hold in ED. Burn Absent Trauma Absent Current % PO Negligible #1 Nutrition Diagnosis Inadequate oral intake Etiology ARF As Evidenced by Signs and Symptoms pt on vent and unable to consume PO Is patient on ventilator? Yes Is Patient Ambulatory and/or Out of Bed No REE-([place]-confined to bed) [phone] Calculation [facility] Additional Notes Protein: (1.2-2g/kg) 78-130g Fluid: 1 ml/kcal Nutrition Intervention Change Diet Order: Start TF or extubate Nutrition Support: Vital AF 1.2 at 55 ml/hr Flush 100ml q4h Kcal 1,584 Protein (gm) 99 Fluid (mL) 1,071 Goal #1 Start TF or extubation and diet advancement Anticipated Discharge Needs: Unable to determine at this time Follow-Up By: 05/12/21 Additional Comments FU for TF consult or extubation
[2021-05-10] MEDS: FAMOTIDINE 20 MG/2 ML INJ IV SCH ×2 (16:53→21:12)
--- NOTE | 2021-05-11 09:28 | Progress Note ---
Assessment and Plan Assessment and plan: This is a 26-year-old female with paranoid schizophrenia, depression, PTSD who was admitted after intentional drug overdose, suicide attempt and intubated for airway protection Problem list Acute respiratory failure Intentional drug overdose Suicide attempt Leukocytosis Hyperammonemia Elevated TSH Acute respiratory failure -Patient was intubated per ED notes for airway protection -Patient was extubated 05/10 by CCM and downgraded from ICU to the floor -Supplemental oxygenation as needed -Pulmonary hygiene Intentional drug overdose -Patient received activated charcoal per poison control who also suggested benzodiazepines for agitation -UDS positive for amphetamines -Psychiatric consult, appreciate recommendations -Patient needs sitter at bedside Suicide attempt -Psychiatric consulted, appreciate recommendations -According to family patient has a history of polysubstance drug abuse including methamphetamine and heroin with a history of overdose incidents -According to family patient is a paranoid schizophrenic with PTSD and depression Leukocytosis -Likely reactive -Trend CBC Hyperammonemia -Presented with a ammonia of 87 -Trend ammonia Elevated TSH -05/09 TSH 6.2, 05/10 T4 1.6 -Follow-up with PCP to repeat studies Hyponatremia, resolved -Presented with a sodium of 134, 05/10 sodium 138 Hypokalemia, resolved -Presented with a potassium of 3.1, repleted and repeat is 3.7 Hypochloremia, resolved -Presented with a chloride of 96.629 chloride 101.5 Metabolic acidosis, resolved -Presented with a CO2 of 14 on BMP, 05/10 CO2 24 on BMP Lactic acidosis, resolved -Presented with a lactic acid of 10.3, 05/10 lactic acid 1 DVT/GI prophylaxis: SCDs to bilateral lower extremities while in bed, PPI, heparin subcu Disposition: Psychiatry to evaluate patient for suicidal ideation. History Interval history: 05/11/2021: Patient seen and examined, sleeping, no complaints, no agitation. Hospitalist Physical - Physical exam Narrative exam: General appearance: no acute distress, well-nourished EENT: PERRL, EOM intact, hearing intact, clear oral mucosa Neck: Present: supple, normal ROM Respiratory: bilateral CTA, negative: rales, rhonchi, wheezing Cardiovascular: Regular rate/rhythm, Normal S1 & S2. No gallop, rub Extremities: no ischemia, No edema, normal temperature, normal color, Full ROM Abdominal: soft, no tenderness, non-distended, normal bowel sounds Integumentary: Present: clear, warm, dry no wounds, no erythema noted Psychiatric: Flat affect, no suicide ideation or homicidal ideation noted by the patient Neurologic: CNII-XII intact, moves all extremities, no sensory or motor abnormalities, lethargic - Constitutional Vitals: Temp Pulse Resp BP Pulse Ox 98.3 F 70 20 98/59 96 05/11/21 05:54 05/11/21 05:54 05/11/21 05:54 05/11/21 05:54 05/11/21 05:54 General appearance: Present: disheveled HEART Score - HEART Score Troponin: Troponin T < 0.010 ng/mL (0.00-0.029) 05/09/21 17:21 Results - Labs CBC & Chem 7: 05/10/21 04:18 05/10/21 04:18 Labs: Laboratory Last Values WBC 19.2 K/mm3 (4.5-11.0) H 05/10/21 04:18 RBC 4.51 M/mm3 (3.65-5.03) 05/10/21 04:18 Hgb 14.5 gm/dl (10.1-14.3) H 05/10/21 04:18 Hct 42.7 % (30.3-42.9) 05/10/21 04:18 MCV 95 fl (79-97) 05/10/21 04:18 MCH 32 pg (28-32) 05/10/21 04:18 MCHC 34 % (30-34) 05/10/21 04:18 RDW 14.0 % (13.2-15.2) 05/10/21 04:18 Plt Count 318 K/mm3 (140-440) 05/10/21 04:18 Lymph % (Auto) 19.6 % (13.4-35.0) 05/09/21 17:21 [place] % (Auto) 6.4 % (0.0-7.3) 05/09/21 17:21 Eos % (Auto) 1.1 % (0.0-4.3) 05/09/21 17:21 Baso % (Auto) 1.2 % (0.0-1.8) 05/09/21 17:21 Lymph # (Auto) 1.8 K/mm3 (1.2-5.4) 05/09/21 17:21 [place] # (Auto) 0.6 K/mm3 (0.0-0.8) 05/09/21 17:21 Eos # (Auto) 0.1 K/mm3 (0.0-0.4) 05/09/21 17:21 Baso # (Auto) 0.1 K/mm3 (0.0-0.1) 05/09/21 17:21 Add Manual Diff Complete 05/10/21 04:18 Total Counted 100 05/10/21 04:18 Seg Neutrophils % Instrument Adjuster 05/10/21 04:18 Seg Neuts % (Manual) 88.0 % (40.0-70.0) H 05/10/21 04:18 Band Neutrophils % 1.0 % 05/10/21 04:18 Lymphocytes % (Manual) 6.0 % (13.4-35.0) L 05/10/21 04:18 Monocytes % (Manual) 5.0 % (0.0-7.3) 05/10/21 04:18 Nucleated RBC % Not Reportable 05/10/21 04:18 Seg Neutrophils # 6.5 K/mm3 (1.8-7.7) 05/09/21 17:21 Seg Neutrophils # Man 16.9 K/mm3 (1.8-7.7) H 05/10/21 04:18 Band Neutrophils # 0.2 K/mm3 05/10/21 04:18 Lymphocytes # (Manual) 1.2 K/mm3 (1.2-5.4) 05/10/21 04:18 Abs React Lymphs (Man) 0.0 K/mm3 05/10/21 04:18 Monocytes # (Manual) 1.0 K/mm3 (0.0-0.8) H 05/10/21 04:18 Eosinophils # (Manual) 0.0 K/mm3 (0.0-0.4) 05/10/21 04:18 Basophils # (Manual) 0.0 K/mm3 (0.0-0.1) 05/10/21 04:18 Metamyelocytes # 0.0 K/mm3 05/10/21 04:18 Myelocytes # 0.0 K/mm3 05/10/21 04:18 Promyelocytes # 0.0 K/mm3 05/10/21 04:18 Blast Cells # 0.0 K/mm3 05/10/21 04:18 WBC Morphology Not Reportable 05/10/21 04:18 Hypersegmented Neuts Not Reportable 05/10/21 04:18 Hyposegmented Neuts Not Reportable 05/10/21 04:18 Hypogranular Neuts Not Reportable 05/10/21 04:18 Smudge Cells Not Reportable 05/10/21 04:18 Toxic Granulation Not Reportable 05/10/21 04:18 Toxic Vacuolation Not Reportable 05/10/21 04:18 Dohle Bodies Not Reportable 05/10/21 04:18 Pelger-Huet Anomaly Not Reportable 05/10/21 04:18 Pauline Rods Not Reportable 05/10/21 04:18 Platelet Estimate Consistent w auto 05/10/21 04:18 Clumped Platelets Not Reportable 05/10/21 04:18 Plt Clumps, EDTA Not Reportable 05/10/21 04:18 Large Platelets Not Reportable 05/10/21 04:18 Giant Platelets Not Reportable 05/10/21 04:18 Platelet Satelliting Not Reportable 05/10/21 04:18 Plt Morphology Comment Not Reportable 05/10/21 04:18 RBC Morphology Normal 05/10/21 04:18 Dimorphic RBCs Not Reportable 05/10/21 04:18 Polychromasia Not Reportable 05/10/21 04:18 Hypochromasia Not Reportable 05/10/21 04:18 Poikilocytosis Not Reportable 05/10/21 04:18 Anisocytosis Not Reportable 05/10/21 04:18 Microcytosis Not Reportable 05/10/21 04:18 Macrocytosis Not Reportable 05/10/21 04:18 Spherocytes Not Reportable 05/10/21 04:18 Pappenheimer Bodies Not Reportable 05/10/21 04:18 Sickle Cells Not Reportable 05/10/21 04:18 Target Cells Not Reportable 05/10/21 04:18 Tear Drop Cells Not Reportable 05/10/21 04:18 Ovalocytes Not Reportable 05/10/21 04:18 Helmet Cells Not Reportable 05/10/21 04:18 [place] Bodies Not Reportable 05/10/21 04:18 [place] Rings Not Reportable 05/10/21 04:18 Caitlin Cells Not Reportable 05/10/21 04:18 Bite Cells Not Reportable 05/10/21 04:18 Crenated Cell Not Reportable 05/10/21 04:18 Elliptocytes Not Reportable 05/10/21 04:18 Acanthocytes (Spur) Not Reportable 05/10/21 04:18 Rouleaux Not Reportable 05/10/21 04:18 Hemoglobin C Crystals Not Reportable 05/10/21 04:18 Schistocytes Not Reportable 05/10/21 04:18 Malaria parasites Not Reportable 05/10/21 04:18 Isaac Bodies Not Reportable 05/10/21 04:18 Hem Pathologist Commnt No 05/10/21 04:18 PT 15.0 Sec. (12.2-14.9) H 05/09/21 17:21 INR 1.12 (0.87-1.13) 05/09/21 17:21 ABG pH 7.419 (7.320-7.450) 05/09/21 18:33 POC ABG pCO2 33.3 mmHg (32.0-48.0) 05/09/21 18:33 POC ABG pO2 478.4 mmHg (83-108) H 05/09/21 18:33 POC ABG HCO3 21.1 05/09/21 18:33 ABG O2 Saturation 99.7 (0-100) 05/09/21 18:33 POC ABG Base Excess -2.6 05/09/21 18:33 ABG Hemoglobin 14.1 (12.0-17.5) 05/09/21 18:33 ABG Oxyhemoglobin 98.8 (94-98) H 05/09/21 18:33 ABG Methemoglobin 0 (0.0-1.5) 05/09/21 18:33 ABG Sodium 140.7 mmol/L (136.0-145.0) 05/09/21 18:33 ABG Potassium 3.1 mmol/L (3.40-4.50) L 05/09/21 18:33 ABG Chloride 102.0 mmol/L (98-107) 05/09/21 18:33 ABG Glucose 85 mg/dL (65-95) 05/09/21 18:33 ABG Lactate 1.38 (0.18-30.0) 05/09/21 18:33 VBG pH 7.306 (7.320-7.420) L 05/09/21 17:51 Carboxyhemoglobin 0.9 (0.5-1.5) 05/09/21 18:33 FiO2 % 100.0 05/09/21 18:33 Sodium 138 mmol/L (137-145) 05/10/21 04:18 Potassium 3.7 mmol/L (3.6-5.0) 05/10/21 04:18 Chloride 101.5 mmol/L (98-107) 05/10/21 04:18 Carbon Dioxide 24 mmol/L (22-30) D 05/10/21 04:18 Anion Gap 16 mmol/L 05/10/21 04:18 BUN 8 mg/dL (7-17) 05/10/21 04:18 Creatinine 0.6 mg/dL (0.6-1.2) 05/10/21 04:18 Estimated GFR > 60 ml/min 05/10/21 04:18 BUN/Creatinine Ratio 13 % 05/10/21 04:18 Glucose 118 mg/dL (65-100) H 05/10/21 04:18 Lactic Acid 1.00 mmol/L (0.7-2.0) 05/09/21 20:00 Calcium 9.3 mg/dL (8.4-10.2) 05/10/21 04:18 Magnesium 2.20 mg/dL (1.7-2.3) 05/09/21 17:21 Total Bilirubin 0.60 mg/dL (0.1-1.2) 05/10/21 04:18 AST 17 units/L (5-40) 05/10/21 04:18 ALT 11 units/L (7-56) 05/10/21 04:18 Alkaline Phosphatase 90 units/L (35-129) 05/10/21 04:18 Ammonia 87.0 umol/L (25-60) H 05/09/21 17:21 Total Creatine Kinase 70 units/L (30-135) 05/09/21 17:21 Troponin T < 0.010 ng/mL (0.00-0.029) 05/09/21 17:21 Total Protein 6.9 g/dL (6.3-8.2) 05/10/21 04:18 Albumin 4.3 g/dL (3.9-5) 05/10/21 04:18 Albumin/Globulin Ratio 1.7 % 05/10/21 04:18 TSH 6.210 mlU/mL (0.270-4.200) H 05/09/21 17:21 Free T4 1.66 ng/dL (0.76-1.46) H 05/10/21 08:16 HCG, Qual Negative (Negative) 05/09/21 17:21 Arterial Blood Glucose 85 mg/dL (65-95) 05/09/21 18:33 Urine Color Yellow (Yellow) 05/09/21 18:47 Urine Turbidity Clear (Clear) 05/09/21 18:47 Urine pH 7.0 (5.0-7.0) 05/09/21 18:47 Ur Specific [place] 1.010 (1.003-1.030) 05/09/21 18:47 Urine Protein <15 mg/dl mg/dL (Negative) 05/09/21 18:47 Urine Glucose (UA) Neg mg/dL (Negative) 05/09/21 18:47 Urine Ketones Tr mg/dL (Negative) 05/09/21 18:47 Urine Blood Neg (Negative) 05/09/21 18:47 Urine Nitrite Neg (Negative) 05/09/21 18:47 Urine Bilirubin Neg (Negative) 05/09/21 18:47 Urine Urobilinogen < 2.0 mg/dL (<2.0) 05/09/21 18:47 Ur Leukocyte Esterase Neg (Negative) 05/09/21 18:47 Urine WBC (Auto) 1.0 /HPF (0.0-6.0) 05/09/21 18:47 Urine RBC (Auto) 3.0 /HPF (0.0-6.0) 05/09/21 18:47 U Epithel Cells (Auto) 1.0 /HPF (0-13.0) 05/09/21 18:47 Urine Bacteria (Auto) 1+ /HPF (Negative) 05/09/21 18:47 Urine Mucus Few /HPF 05/09/21 18:47 Salicylates < 0.3 mg/dL (2.8-20.0) L 05/09/21 17:21 Urine Opiates Screen Negative 05/09/21 18:47 Urine Methadone Screen Negative 05/09/21 18:47 Acetaminophen 5.0 ug/mL (10.0-30.0) L 05/09/21 17:21 Ur Barbiturates Screen Negative 05/09/21 18:47 Ur Phencyclidine Scrn Negative 05/09/21 18:47 Ur Amphetamines Screen Positive 05/09/21 18:47 U Benzodiazepines Scrn Negative 05/09/21 18:47 Urine Cocaine Screen Negative 05/09/21 18:47 U Marijuana (THC) Screen Negative 05/09/21 18:47 Drugs of Abuse Note Disclamer 05/09/21 18:47 Plasma/Serum Alcohol < 0.01 % (0-0.07) 05/09/21 17:21 Microbiology: Microbiology 05/09/21 17:21 Peripheral/Venous Blood Culture - Preliminary NO GROWTH AFTER 24 HOURS 05/09/21 17:27 Peripheral/Venous Blood Culture - Preliminary NO GROWTH AFTER 24 HOURS 05/09/21 20:00 Tracheal Aspirate Sputum Culture - Preliminary Active Medications - Current Medications Current Medications: Generic Name Dose Route Start Last Admin Trade Name Freq PRN Reason Stop Dose Admin Acetaminophen 650 mg 05/10/21 07:31 Acetaminophen 325 Mg/10.15 Ml Oral Liqd Unit Dose FEEDTUBE Q6H PRN Pain MILD(1-3)/Fever >100.5/JONES Famotidine 20 mg 05/10/21 10:00 05/10/21 21:12 Famotidine 20 Mg/2 Ml Inj IV 20 mg BID RADHAMES Administration Heparin Sodium (Porcine) 5,000 unit 05/09/21 22:00 05/10/21 21:12 Heparin 5,000 Unit/1 Ml Vial SUB-Q 5,000 unit Q12HR RADHAMES Administration Ondansetron HCl 4 mg 05/10/21 12:07 Ondansetron 4 Mg/2 Ml Inj IV Q6H PRN Nausea And Vomiting Sodium Chloride 10 ml 05/09/21 22:00 05/10/21 16:53 Sodium Chloride 0.9% 10 Ml Flush Syringe IV Not Given BID RADHAMES Sodium Chloride 10 ml 05/09/21 19:46 Sodium Chloride 0.9% 10 Ml Flush Syringe IV PRN PRN LINE FLUSH Nutrition/Malnutrition Assess - Dietary Evaluation Nutrition/Malnutrition Findings: Nutrition Notes Start: 05/10/21 07:41 Freq: Status: Active Protocol: Document 05/10/21 07:41 (Rec: 05/10/21 07:46 NATHAN [id number]) Nutrition Notes Need for Assessment generated from: MD Order Initial or Follow up Assessment Current Diagnosis Respiratory Failure Other Pertinent Diagnosis suicide attempt, intentional drug overdose Current Diet NPO Labs/Tests Reviewed Pertinent Medications Reviewed Height 5 ft 6 in Weight 65 kg Bath Body Weight (kg) 59.09 BMI 23.1 Weight Status Appropriate Subjective/Other Information MD order to evaluate nutritional intakes. Pt on vent and on hold in ED. Burn Absent Trauma Absent Current % PO Negligible #1 Nutrition Diagnosis Inadequate oral intake Etiology ARF As Evidenced by Signs and Symptoms pt on vent and unable to consume PO Is patient on ventilator? Yes Is Patient Ambulatory and/or Out of Bed No REE-([facility]-confined to bed) 9970.806 Calculation Used for Recommendations [facility] Additional Notes Protein: (1.2-2g/kg) 78-130g Fluid: 1 ml/kcal Nutrition Intervention Change Diet Order: Start TF or extubate Nutrition Support: Vital AF 1.2 at 55 ml/hr Flush 100ml q4h Kcal 1,584 Protein (gm) 99 Fluid (mL) 1,071 Goal #1 Start TF or extubation and diet advancement Anticipated Discharge Needs: Unable to determine at this time Follow-Up By: 05/12/21 Additional Comments FU for TF consult or extubation
[2021-05-11 13:44] LABS: Basophils # (Auto) 0.1 K/mm3 (0.0-0.1); Basophils % (Auto) 0.8 % (0.0-1.8); Eosinophils # (Auto) 0.1 K/mm3 (0.0-0.4); Eosinophils % (Auto) 1.1 % (0.0-4.3); Hematocrit 40.8 % (30.3-42.9); Hemoglobin 13.9 gm/dl (10.1-14.3); Lymphocytes # (Auto) 1.7 K/mm3 (1.2-5.4); Lymphocytes % (Auto) 18.5 % (13.4-35.0); Mean Corpuscular HGB Conc 34 % (30-34); Mean Corpuscular Volume 95 fl (79-97); Monocytes # (Auto) 0.7 K/mm3 (0.0-0.8); Monocytes % (Auto) 7.4 % (0.0-7.3); Platelet Count 276 K/mm3 (140-440); Red Blood Count 4.28 M/mm3 (3.65-5.03); Red Cell Distribution Width 13.7 % (13.2-15.2)
[2021-05-11] MEDS: HEPARIN 5,000 UNIT/1 ML VIAL SUB-Q SCH ×2 (14:03→23:22)
[2021-05-11] MEDS: FAMOTIDINE 20 MG/2 ML INJ IV SCH ×2 (14:05→23:22)
--- NOTE | 2021-05-11 21:17 | Consultation ---
History of Present Illness - Reason for Consult Consult date: 05/11/21 Reason for consult: Suicidal Attempt - Chief Complaint Chief complaint: Unresponsive - History of Present Psychiatric Illness Per Note: 26 YO Female with PTSD,PSA presents to ED for evaluation. Patient is intubated and on ventilatory support at the time my evaluation and is unable to provide history. Patient history taken from EMS staff, ED staff, as well as patient family who was made available via telephone for interview. As per famil y the patient took an unknown quantity of Benadryl tablets today in an attempt to take her own life. EMS was notified and upon arrival the patient was found to be in distress, lethargic, and experienced a witnessed seizure. Patient treated with supportive care and subsequently transported to [facility] for further care and evaluation of the aforementioned symptoms. The patient experienced additional seizures in route and was treated with 2 mg of Ativan with resolution of seizure activity. Patient seen and evaluated in the emergency department. All lab and imaging studies reviewed. Patient was found to have a [place] Coma Score of 6 and was unable to protect her airway. Patient was intubated for airway protection. Patient admitted to ICU. Critical care team consulted. No reports of fever, chills, chest pain, palpitation, productive cough, skin rash, recent ill contacts, trauma or known exposure to COVID-19. No prior imaging for review. All medication listed at time of admission has been reconciled. Poison control notified in the emergency department. The Patient is a 26 year old female with a history of depression and anxiety disorder who presents to the ED for evaluation post overdosing on pills. In my interview with patient, she reports that her best friend committed suicide last year. She reports being admitted at [facility] for suicidal Ideation. Pat yrn states " I have been having problems, going from place to place trying to get medicines." She reports stressors as " Money and multiple probations." She endorses suicidal ideation with no plan.The patient reports having intermittent auditory and visual hallucinations " I hear whispering voices sometimes and I see smiling faces." Patient states she does not have family support. PAST PSYCHIATRIC HISTORY: Diagnoses: Depression and Anxiety Suicide attempts or Self-harm behavior: X1 Prior psychiatric hospitalizations: Yes, X2 Substance Abuse history: Marijuana Previous psychiatric medications tried: Xanax, Remeron, and [place] Outpatient treatment:Yes PAST MEDICAL HISTORY: Family Psychiatric History: None reported or documented SOCIAL HISTORY Marital Status: Single Living Arrangements: Lives with grandparent Employment Status: unknown Access to guns/weapons: n/a Education: 11th grade History of Abuse: n/a Legal History: n/a REVIEW OF SYSTEMS Constitutional: Negative for weight loss ENT: Negative for stridor Respiratory: Negative for cough or hemoptysis All other systems reviewed and are negative MENTAL STATUS EXAMINATION General Appearance and Behavior: Age appropriate, good hygiene, wearing appropriate clothes, uncooperative polite with questioning. 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 PSYCHOTHERAPY: Supportive psychotherapy provided MEDICAL: Per primary team DELIRIUM PRECAUTIONS: Please re-orient patient frequently, keep lights on during the day, and minimize benzodiazepines and opiates as these medications could worsen patient's confusion. STULL INSTALLER: Per medical team DISPOSITION: Do not recommend acute inpatient psychiatric hospitalization at this time FOLLOW-UP: Patient to follow up with psychiatry outpatient post discharge. Will follow for medication management. Thank you for the consult. Please contact with any questions and/or concerns. Medications and Allergies Medications and Allergies Allergies Allergy/AdvReac Type Severity Reaction Status Date / Time No Known Allergies Allergy Verified 11/10/15 02:23 Home Medications Medication Instructions Recorded Confirmed Last Taken Type Nitrofurantoin [place]/M-Cryst 100 mg PO Q12HR #14 capsule 06/20/20 Unknown Rx [Macrobid CAP] risperiDONE [RisperDAL] 0.5 mg PO BID #60 tablet 06/20/20 Unknown Rx traZODone [Desyrel] 50 mg PO QHS #30 tablet 06/20/20 Unknown Rx Active Meds: Active Medications Acetaminophen (Acetaminophen 325 Mg/10.15 Ml Oral Liqd Unit Dose) 650 mg FEEDTUBE Q6H PRN PRN Reason: Pain MILD(1-3)/Fever >100.5/JONES Famotidine (Famotidine 20 Mg/2 Ml Inj) [address] [facility] Last Admin: 05/11/21 14:05 Dose: 20 mg Documented by: Heparin Sodium (Porcine) (Heparin 5,000 Unit/1 Ml Vial) 5,000 unit SUB-Q Q12HR [facility] Last Admin: 05/11/21 14:03 Dose: 5,000 unit Documented by: Ondansetron HCl (Ondansetron 4 Mg/2 Ml Inj) 4 mg IV Q6H PRN PRN Reason: Nausea And Vomiting Sodium Chloride (Sodium Chloride 0.9% 10 Ml Flush Syringe) [address] [facility] Last Admin: 05/11/21 14:05 Dose: 10 ml Documented by: Sodium Chloride (Sodium Chloride 0.9% 10 Ml Flush Syringe) 10 ml IV PRN PRN PRN Reason: LINE FLUSH Mental Status Exam - Vital signs Last Vital Signs Temp 99.0 F 05/11/21 20:39 Pulse 91 H 05/11/21 20:39 Resp 18 05/11/21 20:39 BP 100/53 05/11/21 20:39 Pulse Ox 96 05/11/21 20:39 Results Result Diagrams: 05/11/21 13:10 05/10/21 04:18 Abnormal lab results 05/11/21 Range/Units 13:10 [place] % (Auto) 7.4 H (0.0-7.3) % Seg Neutrophils % 72.2 H (40.0-70.0) % All other labs normal.
[2021-05-11] MEDS: traZODone 50 MG TAB PO SCH (23:21)
[2021-05-12 06:10] LABS: Hematocrit 36.8 % (30.3-42.9); Hemoglobin 12.7 gm/dl (10.1-14.3); Mean Corpuscular HGB Conc 34 % (30-34); Mean Corpuscular Volume 94 fl (79-97); Platelet Count 276 K/mm3 (140-440); Red Blood Count 3.91 M/mm3 (3.65-5.03); Red Cell Distribution Width 13.5 % (13.2-15.2)
[2021-05-12] MEDS: FLUoxetine 10 MG TAB PO SCH (09:50)
[2021-05-12] MEDS: FAMOTIDINE 20 MG/2 ML INJ IV SCH (09:50)
[2021-05-12] MEDS: HEPARIN 5,000 UNIT/1 ML VIAL SUB-Q SCH ×2 (09:51→21:31)
[2021-05-12] MEDS ORDERED: FAMOTIDINE 20 MG TAB PO SCH (10:00)
--- NOTE | 2021-05-12 12:08 | Progress Note ---
Assessment and Plan Assessment and plan: This is a 26-year-old female with paranoid schizophrenia, depression, PTSD who was admitted after intentional drug overdose, suicide attempt and intubated for airway protection Problem list Acute respiratory failure Intentional drug overdose Suicide attempt Leukocytosis Hyperammonemia Elevated TSH Acute respiratory failure -Patient was intubated per ED notes for airway protection -Patient was extubated 05/10 by [facility] and downgraded from ICU to the floor -Supplemental oxygenation as needed -Pulmonary hygiene Intentional drug overdose -Patient received activated charcoal per poison control who also suggested benzodiazepines for agitation -UDS positive for amphetamines -Psychiatric consult, appreciate recommendations -Patient needs sitter at bedside Suicide attempt -Psychiatric consulted, appreciate recommendations -According to family patient has a history of polysubstance drug abuse including methamphetamine and heroin with a history of overdose incidents -According to family patient is a paranoid schizophrenic with PTSD and depression Patient does not meet inpatient criteria per psychiatry, however patient does note intermittent SI and from psychiatry's note, patient is stating that she is having hallucinations. Will speak with psychiatry to get more information. Leukocytosis -Likely reactive -Trend CBC Hyperammonemia -Presented with a ammonia of 87 -Trend ammonia Elevated TSH -05/09 TSH 6.2, 05/10 T4 1.6 -Follow-up with PCP to repeat studies Hyponatremia, resolved -Resolved Hypokalemia, resolved -Resolved Hypochloremia, resolved -Resolved Metabolic acidosis, resolved -Resolved Lactic acidosis, resolved -Resolved DVT/GI prophylaxis: SCDs to bilateral lower extremities while in bed, PPI, heparin subcu Disposition: Patient needs PT, continue to monitor patient for apparent suicidal ideation. Need to speak with family pertaining to patient's discharge plan History Interval history: 05/11/2021: Patient seen and examined, sleeping, no complaints, no agitation. 05/12/2021: Patient seen and examined, states that she has some intermittent suicidal ideation, denies any hallucinations at this time. Patient is eating food, but not getting out of bed. Seems to be very lethargic Hospitalist Physical - Physical exam Narrative exam: General appearance: no acute distress, well-nourished EENT: PERRL, EOM intact, hearing intact, clear oral mucosa Neck: Present: supple, normal ROM Respiratory: bilateral CTA, negative: rales, rhonchi, wheezing Cardiovascular: Regular rate/rhythm, Normal S1 & S2. No gallop, rub Extremities: no ischemia, No edema, normal temperature, normal color, Full ROM Abdominal: soft, no tenderness, non-distended, normal bowel sounds Integumentary: Present: clear, warm, dry no wounds, no erythema noted Psychiatric: Flat affect, no suicide ideation or homicidal ideation noted by the patient Neurologic: CNII-XII intact, moves all extremities, no sensory or motor abnormalities, lethargic - Constitutional Vitals: Temp Pulse Resp BP Pulse Ox 98.1 F 75 16 100/46 95 05/12/21 07:52 05/12/21 07:52 05/12/21 07:52 05/12/21 07:52 05/12/21 07:52 General appearance: Present: disheveled HEART Score - HEART Score Troponin: Troponin T < 0.010 ng/mL (0.00-0.029) 05/09/21 17:21 Results - Labs CBC & Chem 7: 05/12/21 05:37 05/10/21 04:18 Labs: Laboratory Last Values WBC 10.8 K/mm3 (4.5-11.0) 05/12/21 05:37 RBC 3.91 M/mm3 (3.65-5.03) 05/12/21 05:37 Hgb 12.7 gm/dl (10.1-14.3) 05/12/21 05:37 Hct 36.8 % (30.3-42.9) 05/12/21 05:37 MCV 94 fl (79-97) 05/12/21 05:37 MCH 32 pg (28-32) 05/12/21 05:37 MCHC 34 % (30-34) 05/12/21 05:37 RDW 13.5 % (13.2-15.2) 05/12/21 05:37 Plt Count 276 K/mm3 (140-440) 05/12/21 05:37 Lymph % (Auto) 18.5 % (13.4-35.0) 05/11/21 13:10 [place] % (Auto) 7.4 % (0.0-7.3) H 05/11/21 13:10 Eos % (Auto) 1.1 % (0.0-4.3) 05/11/21 13:10 Baso % (Auto) 0.8 % (0.0-1.8) 05/11/21 13:10 Lymph # (Auto) 1.7 K/mm3 (1.2-5.4) 05/11/21 13:10 [place] # (Auto) 0.7 K/mm3 (0.0-0.8) 05/11/21 13:10 Eos # (Auto) 0.1 K/mm3 (0.0-0.4) 05/11/21 13:10 Baso # (Auto) 0.1 K/mm3 (0.0-0.1) 05/11/21 13:10 Add Manual Diff Complete 05/10/21 04:18 Total Counted 100 05/10/21 04:18 Seg Neutrophils % 72.2 % (40.0-70.0) H 05/11/21 13:10 Seg Neuts % (Manual) 88.0 % (40.0-70.0) H 05/10/21 04:18 Band Neutrophils % 1.0 % 05/10/21 04:18 Lymphocytes % (Manual) 6.0 % (13.4-35.0) L 05/10/21 04:18 Monocytes % (Manual) 5.0 % (0.0-7.3) 05/10/21 04:18 Nucleated RBC % Not Reportable 05/10/21 04:18 Seg Neutrophils # 6.7 K/mm3 (1.8-7.7) 05/11/21 13:10 Seg Neutrophils # Man 16.9 K/mm3 (1.8-7.7) H 05/10/21 04:18 Band Neutrophils # 0.2 K/mm3 05/10/21 04:18 Lymphocytes # (Manual) 1.2 K/mm3 (1.2-5.4) 05/10/21 04:18 Abs React Lymphs (Man) 0.0 K/mm3 05/10/21 04:18 Monocytes # (Manual) 1.0 K/mm3 (0.0-0.8) H 05/10/21 04:18 Eosinophils # (Manual) 0.0 K/mm3 (0.0-0.4) 05/10/21 04:18 Basophils # (Manual) 0.0 K/mm3 (0.0-0.1) 05/10/21 04:18 Metamyelocytes # 0.0 K/mm3 05/10/21 04:18 Myelocytes # 0.0 K/mm3 05/10/21 04:18 Promyelocytes # 0.0 K/mm3 05/10/21 04:18 Blast Cells # 0.0 K/mm3 05/10/21 04:18 WBC Morphology Not Reportable 05/10/21 04:18 Hypersegmented Neuts Not Reportable 05/10/21 04:18 Hyposegmented Neuts Not Reportable 05/10/21 04:18 Hypogranular Neuts Not Reportable 05/10/21 04:18 Smudge Cells Not Reportable 05/10/21 04:18 Toxic Granulation Not Reportable 05/10/21 04:18 Toxic Vacuolation Not Reportable 05/10/21 04:18 Dohle Bodies Not Reportable 05/10/21 04:18 Pelger-Huet Anomaly Not Reportable 05/10/21 04:18 Pauline Rods Not Reportable 05/10/21 04:18 Platelet Estimate Consistent w auto 05/10/21 04:18 Clumped Platelets Not Reportable 05/10/21 04:18 Plt Clumps, EDTA Not Reportable 05/10/21 04:18 Large Platelets Not Reportable 05/10/21 04:18 Giant Platelets Not Reportable 05/10/21 04:18 Platelet Satelliting Not Reportable 05/10/21 04:18 Plt Morphology Comment Not Reportable 05/10/21 04:18 RBC Morphology Normal 05/10/21 04:18 Dimorphic RBCs Not Reportable 05/10/21 04:18 Polychromasia Not Reportable 05/10/21 04:18 Hypochromasia Not Reportable 05/10/21 04:18 Poikilocytosis Not Reportable 05/10/21 04:18 Anisocytosis Not Reportable 05/10/21 04:18 Microcytosis Not Reportable 05/10/21 04:18 Macrocytosis Not Reportable 05/10/21 04:18 Spherocytes Not Reportable 05/10/21 04:18 Pappenheimer Bodies Not Reportable 05/10/21 04:18 Sickle Cells Not Reportable 05/10/21 04:18 Target Cells Not Reportable 05/10/21 04:18 Tear Drop Cells Not Reportable 05/10/21 04:18 Ovalocytes Not Reportable 05/10/21 04:18 Helmet Cells Not Reportable 05/10/21 04:18 Michelle-Zearing Bodies Not Reportable 05/10/21 04:18 Leola Rings Not Reportable 05/10/21 04:18 Caitlin Cells Not Reportable 05/10/21 04:18 Bite Cells Not Reportable 05/10/21 04:18 Crenated Cell Not Reportable 05/10/21 04:18 Elliptocytes Not Reportable 05/10/21 04:18 Acanthocytes (Spur) Not Reportable 05/10/21 04:18 Rouleaux Not Reportable 05/10/21 04:18 Hemoglobin C Crystals Not Reportable 05/10/21 04:18 Schistocytes Not Reportable 05/10/21 04:18 Malaria parasites Not Reportable 05/10/21 04:18 Isaac Bodies Not Reportable 05/10/21 04:18 Hem Pathologist Commnt No 05/10/21 04:18 PT 15.0 Sec. (12.2-14.9) H 05/09/21 17:21 INR 1.12 (0.87-1.13) 05/09/21 17:21 ABG pH 7.419 (7.320-7.450) 05/09/21 18:33 POC ABG pCO2 33.3 mmHg (32.0-48.0) 05/09/21 18:33 POC ABG pO2 478.4 mmHg (83-108) H 05/09/21 18:33 POC ABG HCO3 21.1 05/09/21 18:33 ABG O2 Saturation 99.7 (0-100) 05/09/21 18:33 POC ABG Base Excess -2.6 05/09/21 18:33 ABG Hemoglobin 14.1 (12.0-17.5) 05/09/21 18:33 ABG Oxyhemoglobin 98.8 (94-98) H 05/09/21 18:33 ABG Methemoglobin 0 (0.0-1.5) 05/09/21 18:33 ABG Sodium 140.7 mmol/L (136.0-145.0) 05/09/21 18:33 ABG Potassium 3.1 mmol/L (3.40-4.50) L 05/09/21 18:33 ABG Chloride 102.0 mmol/L (98-107) 05/09/21 18:33 ABG Glucose 85 mg/dL (65-95) 05/09/21 18:33 ABG Lactate 1.38 (0.18-30.0) 05/09/21 18:33 VBG pH 7.306 (7.320-7.420) L 05/09/21 17:51 Carboxyhemoglobin 0.9 (0.5-1.5) 05/09/21 18:33 FiO2 % 100.0 05/09/21 18:33 Sodium 138 mmol/L (137-145) 05/10/21 04:18 Potassium 3.7 mmol/L (3.6-5.0) 05/10/21 04:18 Chloride 101.5 mmol/L (98-107) 05/10/21 04:18 Carbon Dioxide 24 mmol/L (22-30) D 05/10/21 04:18 Anion Gap 16 mmol/L 05/10/21 04:18 BUN 8 mg/dL (7-17) 05/10/21 04:18 Creatinine 0.6 mg/dL (0.6-1.2) 05/10/21 04:18 Estimated GFR > 60 ml/min 05/10/21 04:18 BUN/Creatinine Ratio 13 % 05/10/21 04:18 Glucose 118 mg/dL (65-100) H 05/10/21 04:18 Lactic Acid 1.00 mmol/L (0.7-2.0) 05/09/21 20:00 Calcium 9.3 mg/dL (8.4-10.2) 05/10/21 04:18 Magnesium 2.20 mg/dL (1.7-2.3) 05/09/21 17:21 Total Bilirubin 0.60 mg/dL (0.1-1.2) 05/10/21 04:18 AST 17 units/L (5-40) 05/10/21 04:18 ALT 11 units/L (7-56) 05/10/21 04:18 Alkaline Phosphatase 90 units/L (35-129) 05/10/21 04:18 Ammonia 87.0 umol/L (25-60) H 05/09/21 17:21 Total Creatine Kinase 70 units/L (30-135) 05/09/21 17:21 Troponin T < 0.010 ng/mL (0.00-0.029) 05/09/21 17:21 Total Protein 6.9 g/dL (6.3-8.2) 05/10/21 04:18 Albumin 4.3 g/dL (3.9-5) 05/10/21 04:18 Albumin/Globulin Ratio 1.7 % 05/10/21 04:18 TSH 6.210 mlU/mL (0.270-4.200) H 05/09/21 17:21 Free T4 1.66 ng/dL (0.76-1.46) H 05/10/21 08:16 HCG, Qual Negative (Negative) 05/09/21 17:21 Arterial Blood Glucose 85 mg/dL (65-95) 05/09/21 18:33 Urine Color Yellow (Yellow) 05/09/21 18:47 Urine Turbidity Clear (Clear) 05/09/21 18:47 Urine pH 7.0 (5.0-7.0) 05/09/21 18:47 Ur Specific [place] 1.010 (1.003-1.030) 05/09/21 18:47 Urine Protein <15 mg/dl mg/dL (Negative) 05/09/21 18:47 Urine Glucose (UA) Neg mg/dL (Negative) 05/09/21 18:47 Urine Ketones Tr mg/dL (Negative) 05/09/21 18:47 Urine Blood Neg (Negative) 05/09/21 18:47 Urine Nitrite Neg (Negative) 05/09/21 18:47 Urine Bilirubin Neg (Negative) 05/09/21 18:47 Urine Urobilinogen < 2.0 mg/dL (<2.0) 05/09/21 18:47 Ur Leukocyte Esterase Neg (Negative) 05/09/21 18:47 Urine WBC (Auto) 1.0 /HPF (0.0-6.0) 05/09/21 18:47 Urine RBC (Auto) 3.0 /HPF (0.0-6.0) 05/09/21 18:47 U Epithel Cells (Auto) 1.0 /HPF (0-13.0) 05/09/21 18:47 Urine Bacteria (Auto) 1+ /HPF (Negative) 05/09/21 18:47 Urine Mucus Few /HPF 05/09/21 18:47 Salicylates < 0.3 mg/dL (2.8-20.0) L 05/09/21 17:21 Urine Opiates Screen Negative 05/09/21 18:47 Urine Methadone Screen Negative 05/09/21 18:47 Acetaminophen 5.0 ug/mL (10.0-30.0) L 05/09/21 17:21 Ur Barbiturates Screen Negative 05/09/21 18:47 Ur Phencyclidine Scrn Negative 05/09/21 18:47 Ur Amphetamines Screen Positive 05/09/21 18:47 U Benzodiazepines Scrn Negative 05/09/21 18:47 Urine Cocaine Screen Negative 05/09/21 18:47 U Marijuana (THC) Screen Negative 05/09/21 18:47 Drugs of Abuse Note Disclamer 05/09/21 18:47 Plasma/Serum Alcohol < 0.01 % (0-0.07) 05/09/21 17:21 Coronavirus (PCR) Negative (Negative) 05/10/21 Unknown Microbiology: Microbiology 05/09/21 17:21 Peripheral/Venous Blood Culture - Preliminary NO GROWTH AFTER 48 HOURS 05/09/21 17:27 Peripheral/Venous Blood Culture - Preliminary NO GROWTH AFTER 48 HOURS [place]/IV: Voiding Method Toilet Active Medications - Current Medications Current Medications: Generic Name Dose Route Start Last Admin Trade Name Freq PRN Reason Stop Dose Admin Acetaminophen 650 mg 05/12/21 10:10 Acetaminophen 325 Mg/10.15 Ml Oral Liqd Unit Dose PO Q6H PRN Pain MILD(1-3)/Fever >100.5/JONES Famotidine 20 mg 05/12/21 22:00 Famotidine 20 Mg Tab PO BID RADHAMES Fluoxetine HCl 10 mg 05/12/21 10:00 05/12/21 09:50 Fluoxetine 10 Mg Tab PO 10 mg QDAY RADHAMES Administration Heparin Sodium (Porcine) 5,000 unit 05/09/21 22:00 05/12/21 09:51 Heparin 5,000 Unit/1 Ml Vial SUB-Q 5,000 unit Q12HR RADHAMES Administration Hydroxyzine Pamoate 25 mg 05/11/21 22:00 Hydroxyzine Pamoate 25 Mg Cap PO Q6H PRN Anxiety Ondansetron HCl 4 mg 05/10/21 12:07 Ondansetron 4 Mg/2 Ml Inj IV Q6H PRN Nausea And Vomiting Sodium Chloride 10 ml 05/09/21 22:00 05/12/21 09:50 Sodium Chloride 0.9% 10 Ml Flush Syringe IV 10 ml BID RADHAMES Administration Sodium Chloride 10 ml 05/09/21 19:46 Sodium Chloride 0.9% 10 Ml Flush Syringe IV PRN PRN LINE FLUSH Trazodone HCl 50 mg 05/11/21 22:00 05/11/21 23:21 Trazodone 50 Mg Tab PO 50 mg QHS RADHAMES Administration Nutrition/Malnutrition Assess - Dietary Evaluation Nutrition/Malnutrition Findings: Nutrition Notes Start: 05/10/21 07:41 Freq: Status: Active Protocol: Document 05/11/21 11:22 CW (Rec: 05/11/21 11:28 CW [id number]) Nutrition Notes Need for Assessment generated from: senior account representative Initial or Follow up Reassessment Other Pertinent Diagnosis droplet precuations; suicide attempt, intentional drug overdose Current Diet Regular Diet Labs/Tests Reviewed Pertinent Medications Reviewed Height 5 ft 6 in Weight 58.2 kg [place] Body Weight (kg) 59.09 BMI 20.7 Weight change and time frame weight change likely related to extubation Weight Status Appropriate Subjective/Other Information RN sccreen for skin risk. Michael score of 18. Skin is intact. Pt extubated and diet advanced. Will monitor intakes . Pt on droplet precautions and did not answer phone x2. Per sitter, pt consuming 100% of meal. Burn Absent Trauma Absent Current % PO Good (75-100%) Minimum of two criteria No physical signs of malnutrition #1 Nutrition Diagnosis Inadequate oral intake As Evidenced by Signs and Symptoms Pt extubated and consuming 100 % of regular diet Diagnosis Progress(for reassessment Improved documentation) Is patient on ventilator? No Is Patient Ambulatory and/or Out of Bed No REE-([place]-St. Jeor-confined to bed) 1602.396 Calculation Used for Recommendations [facility] Additional Notes Protein: (1.2-2g/kg) 78-130g Fluid: 1 ml/kcal Nutrition Intervention Change Diet Order: Continue diet as ordered Goal #1 Continue to meet at least 75% of kcal and protein needs Anticipated Discharge Needs: Regular diet Follow-Up By: 05/16/21 Additional Comments F/U for intakes
[2021-05-12] MEDS ORDERED: ACETAMINOPHEN 325 MG/10.15 ML ORAL LIQD UNIT DOSE ONE (12:54)
[2021-05-12] MEDS: ACETAMINOPHEN 325 MG/10.15 ML ORAL LIQD UNIT DOSE PO PRN (12:59)
--- NOTE | 2021-05-12 14:01 | Progress Note ---
Subjective Date of service: 05/12/21 Interval history: PAST PSYCHIATRIC HISTORY: Diagnoses: Depression and Anxiety Suicide attempts or Self-harm behavior: X1 Prior psychiatric hospitalizations: Yes, X2 Substance Abuse history: Marijuana Previous psychiatric medications tried: Xanax, Remeron, and [place] Outpatient treatment:Yes PAST MEDICAL HISTORY: Family Psychiatric History: None reported or documented SOCIAL HISTORY Marital Status: Single Living Arrangements: Lives with grandparent Employment Status: unknown Access to guns/weapons: n/a Education: 11th grade History of Abuse: n/a Legal History: n/a REVIEW OF SYSTEMS Constitutional: Negative for weight loss ENT: Negative for stridor Respiratory: Negative for cough or hemoptysis All other systems reviewed and are negative MENTAL STATUS EXAMINATION General Appearance and Behavior: Age appropriate, good hygiene, wearing appropriate clothes, uncooperative polite with questioning. 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 PSYCHOTHERAPY: Supportive psychotherapy provided MEDICAL: Per primary team DELIRIUM PRECAUTIONS: Please re-orient patient frequently, keep lights on during the day, and minimize benzodiazepines and opiates as these medications could worsen patient's confusion. PAYROLL AND BENEFITS ASSISTANT: Per medical team DISPOSITION: Do not recommend acute inpatient psychiatric hospitalization at this time FOLLOW-UP: Patient to follow up with psychiatry outpatient post discharge. Will follow for medication management. Thank you for the consult. Please contact with any questions and/or concerns. Objective Vital Signs - 12hr 05/12/21 05/12/21 05/12/21 04:57 07:52 12:53 Temperature 98.0 F 98.1 F 97.9 F Pulse Rate 103 H 75 90 Respiratory 18 16 18 Rate Blood Pressure 101/49 100/46 105/45 O2 Sat by Pulse 89 95 97 Oximetry CBC and BMP: 05/12/21 05:37 05/10/21 04:18 ABG, PT/INR, D-dimer: ABG ABG pH 7.419 (7.320-7.450) 05/09/21 18:33 POC ABG pCO2 33.3 mmHg (32.0-48.0) 05/09/21 18:33 POC ABG pO2 478.4 mmHg (83-108) H 05/09/21 18:33 POC ABG HCO3 21.1 05/09/21 18:33 ABG O2 Saturation 99.7 (0-100) 05/09/21 18:33 PT/INR, D-dimer PT 15.0 Sec. (12.2-14.9) H 05/09/21 17:21 INR 1.12 (0.87-1.13) 05/09/21 17:21 Abnormal lab findings: Abnormal Labs 05/09/21 05/09/21 05/09/21 17:21 17:21 17:21 WBC Hgb 14.9 H Hct 45.0 H [place] % (Auto) Seg Neutrophils % 71.7 H Seg Neuts % (Manual) Lymphocytes % (Manual) Seg Neutrophils # Man Monocytes # (Manual) PT 15.0 H POC ABG pO2 ABG Oxyhemoglobin ABG Potassium VBG pH Sodium 134 L Potassium 3.1 L Chloride 96.6 L Carbon Dioxide 14 L Glucose Lactic Acid Ammonia TSH Free T4 Salicylates Acetaminophen 05/09/21 05/09/21 05/09/21 17:21 17:21 17:21 WBC Hgb Hct [place] % (Auto) Seg Neutrophils % Seg Neuts % (Manual) Lymphocytes % (Manual) Seg Neutrophils # Man Monocytes # (Manual) PT POC ABG pO2 ABG Oxyhemoglobin ABG Potassium VBG pH Sodium Potassium Chloride Carbon Dioxide Glucose Lactic Acid 10.30 H* Ammonia 87.0 H TSH 6.210 H Free T4 Salicylates Acetaminophen 05/09/21 05/09/21 05/09/21 17:21 17:21 17:51 WBC Hgb Hct [place] % (Auto) Seg Neutrophils % Seg Neuts % (Manual) Lymphocytes % (Manual) Seg Neutrophils # Man Monocytes # (Manual) PT POC ABG pO2 ABG Oxyhemoglobin ABG Potassium VBG pH 7.306 L Sodium Potassium Chloride Carbon Dioxide Glucose Lactic Acid Ammonia TSH Free T4 Salicylates < 0.3 L Acetaminophen 5.0 L 05/09/21 05/10/21 05/10/21 18:33 04:18 04:18 WBC 19.2 H Hgb 14.5 H Hct [place] % (Auto) Seg Neutrophils % Seg Neuts % (Manual) 88.0 H Lymphocytes % (Manual) 6.0 L Seg Neutrophils # Man 16.9 H Monocytes # (Manual) 1.0 H PT POC ABG pO2 478.4 H ABG Oxyhemoglobin 98.8 H ABG Potassium 3.1 L VBG pH Sodium Potassium Chloride Carbon Dioxide Glucose 118 H Lactic Acid Ammonia TSH Free T4 Salicylates Acetaminophen 05/10/21 05/11/21 08:16 13:10 WBC Hgb Hct [place] % (Auto) 7.4 H Seg Neutrophils % 72.2 H Seg Neuts % (Manual) Lymphocytes % (Manual) Seg Neutrophils # Man Monocytes # (Manual) PT POC ABG pO2 ABG Oxyhemoglobin ABG Potassium VBG pH Sodium Potassium Chloride Carbon Dioxide Glucose Lactic Acid Ammonia TSH Free T4 1.66 H Salicylates Acetaminophen
--- NOTE | 2021-05-12 14:07 | Progress Note ---
Subjective - Reason for Consult Consult date: 05/12/21 Reason for consult: Suicidal Ideation- OD - Chief Complaint Chief complaint: Patient was seen resting quietly in the bed. She reports doing well. She reports sleep and appetite as good. Patient continues to endorse suicidal ideation and intermittent auditory and visual hallucinations. REVIEW OF SYSTEMS Constitutional: Negative for weight loss ENT: Negative for stridor Respiratory: Negative for cough or hemoptysis All other systems reviewed and are negative MENTAL STATUS EXAMINATION General Appearance and Behavior: Age appropriate, good hygiene, wearing appropriate clothes, uncooperative polite with questioning. 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 PSYCHOTHERAPY: Supportive psychotherapy provided MEDICAL: Per primary team DELIRIUM PRECAUTIONS: Please re-orient patient frequently, keep lights on during the day, and minimize benzodiazepines and opiates as these medications could worsen patient's confusion. BRAND DEVELOPMENT MANAGER: Per medical team DISPOSITION: Do not recommend acute inpatient psychiatric hospitalization at this time FOLLOW-UP: Patient to follow up with psychiatry outpatient post discharge. Will follow for medication management. Thank you for the consult. Please contact with any questions and/or concerns. Mental Status Exam - Vital signs Last Vital Signs Temp 97.9 F 05/12/21 12:53 Pulse 90 05/12/21 12:53 Resp 18 05/12/21 12:53 BP 105/45 05/12/21 12:53 Pulse Ox 97 05/12/21 12:53
[2021-05-12] MEDS: hydrOXYzine PAMOATE 25 MG CAP PO PRN (16:28)
[2021-05-12] MEDS: NICOTINE 21 MG/24 HR PATCH TD SCH (18:16)
[2021-05-12] MEDS: traZODone 50 MG TAB PO SCH (21:31)
[2021-05-12] MEDS: FAMOTIDINE 20 MG TAB PO SCH (21:31)
[2021-05-13] MEDS: FAMOTIDINE 20 MG TAB PO SCH ×2 (10:57→22:34)
[2021-05-13] MEDS: FLUoxetine 10 MG TAB PO SCH (10:57)
[2021-05-13] MEDS: NICOTINE 21 MG/24 HR PATCH TD SCH (10:57)
[2021-05-13] MEDS: HEPARIN 5,000 UNIT/1 ML VIAL SUB-Q SCH ×2 (10:58→22:34)
[2021-05-13] MEDS: ACETAMINOPHEN 325 MG/10.15 ML ORAL LIQD UNIT DOSE PO PRN (11:03)
--- NOTE | 2021-05-13 13:07 | Progress Note ---
Assessment and Plan Assessment and plan: This is a 26-year-old female with paranoid schizophrenia, depression, PTSD who was admitted after intentional drug overdose, suicide attempt and intubated for airway protection Problem list Acute respiratory failure Intentional drug overdose Suicide attempt Leukocytosis Hyperammonemia Elevated TSH Acute respiratory failure -Patient was intubated per ED notes for airway protection -Patient was extubated 05/10 by CCM and downgraded from ICU to the floor -Supplemental oxygenation as needed -Pulmonary hygiene Intentional drug overdose -Patient received activated charcoal per poison control who also suggested benzodiazepines for agitation -UDS positive for amphetamines -Patient needs sitter at bedside Suicide attempt -Psychiatric consulted, appreciate recommendations -According to family patient has a history of polysubstance drug abuse including methamphetamine and heroin with a history of overdose incidents -According to family patient is a paranoid schizophrenic with PTSD and depression PATIENT MEETS INPATIENT CRITERIA FOR PSYCHIATRY TREATMENT. Leukocytosis -Likely reactive -Trend CBC Hyperammonemia -Presented with an ammonia of 87 -Trend ammonia, lactulose if no resolution Elevated TSH -05/09 TSH 6.2, 05/10 T4 1.6 -Follow-up with PCP to repeat studies Hyponatremia, resolved -Resolved Hypokalemia, resolved -Resolved Hypochloremia, resolved -Resolved Metabolic acidosis, resolved -Resolved Lactic acidosis, resolved -Resolved DVT/GI prophylaxis: SCDs to bilateral lower extremities while in bed Disposition: Patient is medically stable and clear to be discharged to inpatient psychiatry. History Interval history: 05/11/2021: Patient seen and examined, sleeping, no complaints, no agitation. 05/12/2021: Patient seen and examined, states that she has some intermittent suicidal ideation, denies any hallucinations at this time. Patient is eating food, but not getting out of bed. Seems to be very lethargic. 05/13/21: no overnight events, pt w/o agitation. continues to have thoughts of suicide ideation Hospitalist Physical - Physical exam Narrative exam: General appearance: no acute distress, well-nourished EENT: PERRL, EOM intact, hearing intact, clear oral mucosa Neck: Present: supple, normal ROM Respiratory: bilateral CTA, negative: rales, rhonchi, wheezing Cardiovascular: Regular rate/rhythm, Normal S1 & S2. No gallop, rub Extremities: no ischemia, No edema, normal temperature, normal color, Full ROM Abdominal: soft, no tenderness, non-distended, normal bowel sounds Integumentary: Present: clear, warm, dry no wounds, no erythema noted Psychiatric: Flat affect, pt has some suicidal ideation Neurologic: CNII-XII intact, moves all extremities, no sensory or motor abnormalities, lethargic - Constitutional Vitals: Temp Pulse Resp BP Pulse Ox 97.9 F 75 22 90/43 95 05/13/21 11:08 05/13/21 11:08 05/13/21 11:08 05/13/21 11:08 05/13/21 11:08 General appearance: Present: disheveled HEART Score - HEART Score Troponin: Troponin T < 0.010 ng/mL (0.00-0.029) 05/09/21 17:21 Results - Labs CBC & Chem 7: 05/12/21 05:37 05/10/21 04:18 Labs: Laboratory Last Values WBC 10.8 K/mm3 (4.5-11.0) 05/12/21 05:37 RBC 3.91 M/mm3 (3.65-5.03) 05/12/21 05:37 Hgb 12.7 gm/dl (10.1-14.3) 05/12/21 05:37 Hct 36.8 % (30.3-42.9) 05/12/21 05:37 MCV 94 fl (79-97) 05/12/21 05:37 MCH 32 pg (28-32) 05/12/21 05:37 MCHC 34 % (30-34) 05/12/21 05:37 RDW 13.5 % (13.2-15.2) 05/12/21 05:37 Plt Count 276 K/mm3 (140-440) 05/12/21 05:37 Lymph % (Auto) 18.5 % (13.4-35.0) 05/11/21 13:10 [place] % (Auto) 7.4 % (0.0-7.3) H 05/11/21 13:10 Eos % (Auto) 1.1 % (0.0-4.3) 05/11/21 13:10 Baso % (Auto) 0.8 % (0.0-1.8) 05/11/21 13:10 Lymph # (Auto) 1.7 K/mm3 (1.2-5.4) 05/11/21 13:10 [place] # (Auto) 0.7 K/mm3 (0.0-0.8) 05/11/21 13:10 Eos # (Auto) 0.1 K/mm3 (0.0-0.4) 05/11/21 13:10 Baso # (Auto) 0.1 K/mm3 (0.0-0.1) 05/11/21 13:10 Add Manual Diff Complete 05/10/21 04:18 Total Counted 100 05/10/21 04:18 Seg Neutrophils % 72.2 % (40.0-70.0) H 05/11/21 13:10 Seg Neuts % (Manual) 88.0 % (40.0-70.0) H 05/10/21 04:18 Band Neutrophils % 1.0 % 05/10/21 04:18 Lymphocytes % (Manual) 6.0 % (13.4-35.0) L 05/10/21 04:18 Monocytes % (Manual) 5.0 % (0.0-7.3) 05/10/21 04:18 Nucleated RBC % Not Reportable 05/10/21 04:18 Seg Neutrophils # 6.7 K/mm3 (1.8-7.7) 05/11/21 13:10 Seg Neutrophils # Man 16.9 K/mm3 (1.8-7.7) H 05/10/21 04:18 Band Neutrophils # 0.2 K/mm3 05/10/21 04:18 Lymphocytes # (Manual) 1.2 K/mm3 (1.2-5.4) 05/10/21 04:18 Abs React Lymphs (Man) 0.0 K/mm3 05/10/21 04:18 Monocytes # (Manual) 1.0 K/mm3 (0.0-0.8) H 05/10/21 04:18 Eosinophils # (Manual) 0.0 K/mm3 (0.0-0.4) 05/10/21 04:18 Basophils # (Manual) 0.0 K/mm3 (0.0-0.1) 05/10/21 04:18 Metamyelocytes # 0.0 K/mm3 05/10/21 04:18 Myelocytes # 0.0 K/mm3 05/10/21 04:18 Promyelocytes # 0.0 K/mm3 05/10/21 04:18 Blast Cells # 0.0 K/mm3 05/10/21 04:18 WBC Morphology Not Reportable 05/10/21 04:18 Hypersegmented Neuts Not Reportable 05/10/21 04:18 Hyposegmented Neuts Not Reportable 05/10/21 04:18 Hypogranular Neuts Not Reportable 05/10/21 04:18 Smudge Cells Not Reportable 05/10/21 04:18 Toxic Granulation Not Reportable 05/10/21 04:18 Toxic Vacuolation Not Reportable 05/10/21 04:18 Dohle Bodies Not Reportable 05/10/21 04:18 Pelger-Huet Anomaly Not Reportable 05/10/21 04:18 Pauline Rods Not Reportable 05/10/21 04:18 Platelet Estimate Consistent w auto 05/10/21 04:18 Clumped Platelets Not Reportable 05/10/21 04:18 Plt Clumps, EDTA Not Reportable 05/10/21 04:18 Large Platelets Not Reportable 05/10/21 04:18 Giant Platelets Not Reportable 05/10/21 04:18 Platelet Satelliting Not Reportable 05/10/21 04:18 Plt Morphology Comment Not Reportable 05/10/21 04:18 RBC Morphology Normal 05/10/21 04:18 Dimorphic RBCs Not Reportable 05/10/21 04:18 Polychromasia Not Reportable 05/10/21 04:18 Hypochromasia Not Reportable 05/10/21 04:18 Poikilocytosis Not Reportable 05/10/21 04:18 Anisocytosis Not Reportable 05/10/21 04:18 Microcytosis Not Reportable 05/10/21 04:18 Macrocytosis Not Reportable 05/10/21 04:18 Spherocytes Not Reportable 05/10/21 04:18 Pappenheimer Bodies Not Reportable 05/10/21 04:18 Sickle Cells Not Reportable 05/10/21 04:18 Target Cells Not Reportable 05/10/21 04:18 Tear Drop Cells Not Reportable 05/10/21 04:18 Ovalocytes Not Reportable 05/10/21 04:18 Helmet Cells Not Reportable 05/10/21 04:18 [place] Bodies Not Reportable 05/10/21 04:18 Pool Rings Not Reportable 05/10/21 04:18 Caitlin Cells Not Reportable 05/10/21 04:18 Bite Cells Not Reportable 05/10/21 04:18 Crenated Cell Not Reportable 05/10/21 04:18 Elliptocytes Not Reportable 05/10/21 04:18 Acanthocytes (Spur) Not Reportable 05/10/21 04:18 Rouleaux Not Reportable 05/10/21 04:18 Hemoglobin C Crystals Not Reportable 05/10/21 04:18 Schistocytes Not Reportable 05/10/21 04:18 Malaria parasites Not Reportable 05/10/21 04:18 Isaac Bodies Not Reportable 05/10/21 04:18 Hem Pathologist Commnt No 05/10/21 04:18 PT 15.0 Sec. (12.2-14.9) H 05/09/21 17:21 INR 1.12 (0.87-1.13) 05/09/21 17:21 ABG pH 7.419 (7.320-7.450) 05/09/21 18:33 POC ABG pCO2 33.3 mmHg (32.0-48.0) 05/09/21 18:33 POC ABG pO2 478.4 mmHg (83-108) H 05/09/21 18:33 POC ABG HCO3 21.1 05/09/21 18:33 ABG O2 Saturation 99.7 (0-100) 05/09/21 18:33 POC ABG Base Excess -2.6 05/09/21 18:33 ABG Hemoglobin 14.1 (12.0-17.5) 05/09/21 18:33 ABG Oxyhemoglobin 98.8 (94-98) H 05/09/21 18:33 ABG Methemoglobin 0 (0.0-1.5) 05/09/21 18:33 ABG Sodium 140.7 mmol/L (136.0-145.0) 05/09/21 18:33 ABG Potassium 3.1 mmol/L (3.40-4.50) L 05/09/21 18:33 ABG Chloride 102.0 mmol/L (98-107) 05/09/21 18:33 ABG Glucose 85 mg/dL (65-95) 05/09/21 18:33 ABG Lactate 1.38 (0.18-30.0) 05/09/21 18:33 VBG pH 7.306 (7.320-7.420) L 05/09/21 17:51 Carboxyhemoglobin 0.9 (0.5-1.5) 05/09/21 18:33 FiO2 % 100.0 05/09/21 18:33 Sodium 138 mmol/L (137-145) 05/10/21 04:18 Potassium 3.7 mmol/L (3.6-5.0) 05/10/21 04:18 Chloride 101.5 mmol/L (98-107) 05/10/21 04:18 Carbon Dioxide 24 mmol/L (22-30) D 05/10/21 04:18 Anion Gap 16 mmol/L 05/10/21 04:18 BUN 8 mg/dL (7-17) 05/10/21 04:18 Creatinine 0.6 mg/dL (0.6-1.2) 05/10/21 04:18 Estimated GFR > 60 ml/min 05/10/21 04:18 BUN/Creatinine Ratio 13 % 05/10/21 04:18 Glucose 118 mg/dL (65-100) H 05/10/21 04:18 Lactic Acid 1.00 mmol/L (0.7-2.0) 05/09/21 20:00 Calcium 9.3 mg/dL (8.4-10.2) 05/10/21 04:18 Magnesium 2.20 mg/dL (1.7-2.3) 05/09/21 17:21 Total Bilirubin 0.60 mg/dL (0.1-1.2) 05/10/21 04:18 AST 17 units/L (5-40) 05/10/21 04:18 ALT 11 units/L (7-56) 05/10/21 04:18 Alkaline Phosphatase 90 units/L (35-129) 05/10/21 04:18 Ammonia 87.0 umol/L (25-60) H 05/09/21 17:21 Total Creatine Kinase 70 units/L (30-135) 05/09/21 17:21 Troponin T < 0.010 ng/mL (0.00-0.029) 05/09/21 17:21 Total Protein 6.9 g/dL (6.3-8.2) 05/10/21 04:18 Albumin 4.3 g/dL (3.9-5) 05/10/21 04:18 Albumin/Globulin Ratio 1.7 % 05/10/21 04:18 TSH 6.210 mlU/mL (0.270-4.200) H 05/09/21 17:21 Free T4 1.66 ng/dL (0.76-1.46) H 05/10/21 08:16 Free T3 Index 3.4 pg/mL (2.3-4.2) 05/10/21 08:16 HCG, Qual Negative (Negative) 05/09/21 17:21 Arterial Blood Glucose 85 mg/dL (65-95) 05/09/21 18:33 Urine Color Yellow (Yellow) 05/09/21 18:47 Urine Turbidity Clear (Clear) 05/09/21 18:47 Urine pH 7.0 (5.0-7.0) 05/09/21 18:47 Ur Specific [place] 1.010 (1.003-1.030) 05/09/21 18:47 Urine Protein <15 mg/dl mg/dL (Negative) 05/09/21 18:47 Urine Glucose (UA) Neg mg/dL (Negative) 05/09/21 18:47 Urine Ketones Tr mg/dL (Negative) 05/09/21 18:47 Urine Blood Neg (Negative) 05/09/21 18:47 Urine Nitrite Neg (Negative) 05/09/21 18:47 Urine Bilirubin Neg (Negative) 05/09/21 18:47 Urine Urobilinogen < 2.0 mg/dL (<2.0) 05/09/21 18:47 Ur Leukocyte Esterase Neg (Negative) 05/09/21 18:47 Urine WBC (Auto) 1.0 /HPF (0.0-6.0) 05/09/21 18:47 Urine RBC (Auto) 3.0 /HPF (0.0-6.0) 05/09/21 18:47 U Epithel Cells (Auto) 1.0 /HPF (0-13.0) 05/09/21 18:47 Urine Bacteria (Auto) 1+ /HPF (Negative) 05/09/21 18:47 Urine Mucus Few /HPF 05/09/21 18:47 Salicylates < 0.3 mg/dL (2.8-20.0) L 05/09/21 17:21 Urine Opiates Screen Negative 05/09/21 18:47 Urine Methadone Screen Negative 05/09/21 18:47 Acetaminophen 5.0 ug/mL (10.0-30.0) L 05/09/21 17:21 Ur Barbiturates Screen Negative 05/09/21 18:47 Ur Phencyclidine Scrn Negative 05/09/21 18:47 Ur Amphetamines Screen Positive 05/09/21 18:47 U Benzodiazepines Scrn Negative 05/09/21 18:47 Urine Cocaine Screen Negative 05/09/21 18:47 U Marijuana (THC) Screen Negative 05/09/21 18:47 Drugs of Abuse Note Disclamer 05/09/21 18:47 Plasma/Serum Alcohol < 0.01 % (0-0.07) 05/09/21 17:21 Coronavirus (PCR) Negative (Negative) 05/10/21 Unknown Microbiology: Microbiology 05/09/21 17:21 Peripheral/Venous Blood Culture - Preliminary NO GROWTH AFTER 72 HOURS 05/09/21 17:27 Peripheral/Venous Blood Culture - Preliminary NO GROWTH AFTER 72 HOURS 05/09/21 20:00 Tracheal Aspirate Sputum Culture - Final 05/09/21 18:47 Urine,Catheterized - Straight Catheter Urine Culture - Final [place]/IV: Voiding Method Toilet Active Medications - Current Medications Current Medications: Generic Name Dose Route Start Last Admin Trade Name Freq PRN Reason Stop Dose Admin Acetaminophen 650 mg 05/12/21 10:10 05/13/21 11:03 Acetaminophen 325 Mg/10.15 Ml Oral Liqd Unit Dose PO 650 mg Q6H PRN Administration Pain MILD(1-3)/Fever >100.5/JONES Famotidine 20 mg 05/12/21 22:00 05/13/21 10:57 Famotidine 20 Mg Tab PO 20 mg BID RADHAMES Administration Fluoxetine HCl 10 mg 05/12/21 10:00 05/13/21 10:57 Fluoxetine 10 Mg Tab PO 10 mg QDAY RADHAMES Administration Heparin Sodium (Porcine) 5,000 unit 05/09/21 22:00 05/13/21 10:58 Heparin 5,000 Unit/1 Ml Vial SUB-Q 5,000 unit Q12HR RADHAMES Administration Hydroxyzine Pamoate 25 mg 05/11/21 22:00 05/12/21 16:28 Hydroxyzine Pamoate 25 Mg Cap PO 25 mg Q6H PRN Administration Anxiety Nicotine 21 mg 05/12/21 19:00 05/13/21 10:57 Nicotine 21 Mg/24 Hr Patch TD 21 mg QDAY RADHAMES Administration Ondansetron HCl 4 mg 05/10/21 12:07 Ondansetron 4 Mg/2 Ml Inj IV Q6H PRN Nausea And Vomiting Sodium Chloride 10 ml 05/09/21 22:00 05/13/21 10:58 Sodium Chloride 0.9% 10 Ml Flush Syringe IV 10 ml BID RADHAMES Administration Sodium Chloride 10 ml 05/09/21 19:46 Sodium Chloride 0.9% 10 Ml Flush Syringe IV PRN PRN LINE FLUSH Trazodone HCl 50 mg 05/11/21 22:00 05/12/21 21:31 Trazodone 50 Mg Tab PO 50 mg QHS RADHAMES Administration Nutrition/Malnutrition Assess - Dietary Evaluation Nutrition/Malnutrition Findings: Nutrition Notes Start: 05/10/21 07:41 Freq: Status: Active Protocol: Document 05/11/21 11:22 CW (Rec: 05/11/21 11:28 CW [id number]) Nutrition Notes Need for Assessment generated from: upper marker Initial or Follow up Reassessment Other Pertinent Diagnosis droplet precuations; suicide attempt, intentional drug overdose Current Diet Regular Diet Labs/Tests Reviewed Pertinent Medications Reviewed Height 5 ft 6 in Weight 58.2 kg [place] Body Weight (kg) 59.09 BMI 20.7 Weight change and time frame weight change likely related to extubation Weight Status Appropriate Subjective/Other Information RN sccreen for skin risk. Michael score of 18. Skin is intact. Pt extubated and diet advanced. Will monitor intakes . Pt on droplet precautions and did not answer phone x2. Per sitter, pt consuming 100% of meal. Burn Absent Trauma Absent Current % PO Good (75-100%) Minimum of two criteria No physical signs of malnutrition #1 Nutrition Diagnosis Inadequate oral intake As Evidenced by Signs and Symptoms Pt extubated and consuming 100 % of regular diet Diagnosis Progress(for reassessment Improved documentation) Is patient on ventilator? No Is Patient Ambulatory and/or Out of Bed No [facility] 1602.396 Calculation Used for Recommendations [facility] Additional Notes Protein: (1.2-2g/kg) 78-130g Fluid: 1 ml/kcal Nutrition Intervention Change Diet Order: Continue diet as ordered Goal #1 Continue to meet at least 75% of kcal and protein needs Anticipated Discharge Needs: Regular diet Follow-Up By: 05/16/21 Additional Comments F/U for intakes
--- NOTE | 2021-05-13 13:24 | Progress Note ---
Subjective - Reason for Consult Consult date: 05/13/21 Reason for consult: suicide attempt - Chief Complaint Chief complaint: Patient was seen today, she is calm and cooperative. She has a sitter at bedside. The patient denies hallucinations at present but states "before hand." She also expresses depression and hopelessness. She endorses still feeling suicidal. REVIEW OF SYSTEMS Constitutional: Negative for weight loss ENT: Negative for stridor Respiratory: Negative for cough or hemoptysis All other systems reviewed and are negative MENTAL STATUS EXAMINATION General Appearance and Behavior: Age appropriate, good hygiene, wearing appropriate clothes, cooperative polite with questioning. 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 PSYCHOTHERAPY: Supportive psychotherapy provided MEDICAL: Per primary team DELIRIUM PRECAUTIONS: Please re-orient patient frequently, keep lights on during the day, and minimize benzodiazepines and opiates as these medications could worsen patient's confusion. POSTAL INSPECTOR: Per medical team DISPOSITION: Recommend acute inpatient psychiatric hospitalization at this time Will follow for medication management. Thank you for the consult. Please contact with any questions and/or concerns. Mental Status Exam - Vital signs Last Vital Signs Temp 97.9 F 05/13/21 11:08 Pulse 75 05/13/21 11:08 Resp 22 05/13/21 11:08 BP 90/43 05/13/21 11:08 Pulse Ox 95 05/13/21 11:08
[2021-05-13] MEDS: traZODone 50 MG TAB PO SCH (22:33)
[2021-05-14 05:20] LABS: Blood Urea Nitrogen 11 mg/dL (7-17); Calcium 8.2 mg/dL (8.4-10.2); Hemolysis Index 1
[2021-05-14 05:41] LABS: BUN/Creatinine Ratio 22
--- NOTE | 2021-05-14 08:15 | Progress Note ---
Assessment and Plan Assessment and plan: This is a 26-year-old female with paranoid schizophrenia, depression, PTSD who was admitted after intentional drug overdose, suicide attempt and intubated for airway protection Problem list Acute respiratory failure Intentional drug overdose Suicide attempt Leukocytosis Hyperammonemia Elevated TSH Acute respiratory failure -Patient was intubated per ED notes for airway protection -Patient was extubated 05/10 by CCM and downgraded from ICU to the floor -Supplemental oxygenation as needed -Pulmonary hygiene Intentional drug overdose -Patient received activated charcoal per poison control who also suggested benzodiazepines for agitation -UDS positive for amphetamines -Patient needs sitter at bedside Suicide attempt -Psychiatric consulted, appreciate recommendations -According to family patient has a history of polysubstance drug abuse including methamphetamine and heroin with a history of overdose incidents -According to family patient is a paranoid schizophrenic with PTSD and depression PATIENT MEETS INPATIENT CRITERIA FOR PSYCHIATRY TREATMENT. Leukocytosis -Likely reactive -Trend CBC Hyperammonemia -Presented with an ammonia of 87 -Trend ammonia, lactulose if no resolution Elevated TSH -05/09 TSH 6.2, 05/10 T4 1.6 -Follow-up with PCP to repeat studies Hyponatremia, resolved -Resolved Hypokalemia, resolved -Resolved Hypochloremia, resolved -Resolved Metabolic acidosis, resolved -Resolved Lactic acidosis, resolved -Resolved DVT/GI prophylaxis: SCDs to bilateral lower extremities while in bed Disposition: Patient is medically stable and clear to be discharged to inpatient psychiatry. History Interval history: 05/11/2021: Patient seen and examined, sleeping, no complaints, no agitation. 05/12/2021: Patient seen and examined, states that she has some intermittent suicidal ideation, denies any hallucinations at this time. Patient is eating food, but not getting out of bed. Seems to be very lethargic. 05/13/21: no overnight events, pt w/o agitation. continues to have thoughts of suicide ideation 05/14/2021: No overnight events, patient lying in bed, eating food, still endorses suicidal ideation. Hospitalist Physical - Physical exam Narrative exam: General appearance: no acute distress, well-nourished EENT: PERRL, EOM intact, hearing intact, clear oral mucosa Neck: Present: supple, normal ROM Respiratory: bilateral CTA, negative: rales, rhonchi, wheezing Cardiovascular: Regular rate/rhythm, Normal S1 & S2. No gallop, rub Extremities: no ischemia, No edema, normal temperature, normal color, Full ROM Abdominal: soft, no tenderness, non-distended, normal bowel sounds Integumentary: Present: clear, warm, dry no wounds, no erythema noted Psychiatric: Flat affect, suicidal ideation noted, no homicidal ideation Neurologic: CNII-XII intact, moves all extremities, no sensory or motor abnormalities - Constitutional Vitals: Temp Pulse Resp BP Pulse Ox 99.0 F 82 20 104/68 97 05/13/21 19:59 05/13/21 22:00 05/13/21 22:00 05/13/21 19:59 05/13/21 22:00 General appearance: Present: disheveled HEART Score - HEART Score Troponin: Troponin T < 0.010 ng/mL (0.00-0.029) 05/09/21 17:21 Results - Labs CBC & Chem 7: 05/12/21 05:37 05/14/21 04:45 Labs: Laboratory Last Values WBC 10.8 K/mm3 (4.5-11.0) 05/12/21 05:37 RBC 3.91 M/mm3 (3.65-5.03) 05/12/21 05:37 Hgb 12.7 gm/dl (10.1-14.3) 05/12/21 05:37 Hct 36.8 % (30.3-42.9) 05/12/21 05:37 MCV 94 fl (79-97) 05/12/21 05:37 MCH 32 pg (28-32) 05/12/21 05:37 MCHC 34 % (30-34) 05/12/21 05:37 RDW 13.5 % (13.2-15.2) 05/12/21 05:37 Plt Count 276 K/mm3 (140-440) 05/12/21 05:37 Lymph % (Auto) 18.5 % (13.4-35.0) 05/11/21 13:10 [place] % (Auto) 7.4 % (0.0-7.3) H 05/11/21 13:10 Eos % (Auto) 1.1 % (0.0-4.3) 05/11/21 13:10 Baso % (Auto) 0.8 % (0.0-1.8) 05/11/21 13:10 Lymph # (Auto) 1.7 K/mm3 (1.2-5.4) 05/11/21 13:10 [place] # (Auto) 0.7 K/mm3 (0.0-0.8) 05/11/21 13:10 Eos # (Auto) 0.1 K/mm3 (0.0-0.4) 05/11/21 13:10 Baso # (Auto) 0.1 K/mm3 (0.0-0.1) 05/11/21 13:10 Add Manual Diff Complete 05/10/21 04:18 Total Counted 100 05/10/21 04:18 Seg Neutrophils % 72.2 % (40.0-70.0) H 05/11/21 13:10 Seg Neuts % (Manual) 88.0 % (40.0-70.0) H 05/10/21 04:18 Band Neutrophils % 1.0 % 05/10/21 04:18 Lymphocytes % (Manual) 6.0 % (13.4-35.0) L 05/10/21 04:18 Monocytes % (Manual) 5.0 % (0.0-7.3) 05/10/21 04:18 Nucleated RBC % Not Reportable 05/10/21 04:18 Seg Neutrophils # 6.7 K/mm3 (1.8-7.7) 05/11/21 13:10 Seg Neutrophils # Man 16.9 K/mm3 (1.8-7.7) H 05/10/21 04:18 Band Neutrophils # 0.2 K/mm3 05/10/21 04:18 Lymphocytes # (Manual) 1.2 K/mm3 (1.2-5.4) 05/10/21 04:18 Abs React Lymphs (Man) 0.0 K/mm3 05/10/21 04:18 Monocytes # (Manual) 1.0 K/mm3 (0.0-0.8) H 05/10/21 04:18 Eosinophils # (Manual) 0.0 K/mm3 (0.0-0.4) 05/10/21 04:18 Basophils # (Manual) 0.0 K/mm3 (0.0-0.1) 05/10/21 04:18 Metamyelocytes # 0.0 K/mm3 05/10/21 04:18 Myelocytes # 0.0 K/mm3 05/10/21 04:18 Promyelocytes # 0.0 K/mm3 05/10/21 04:18 Blast Cells # 0.0 K/mm3 05/10/21 04:18 WBC Morphology Not Reportable 05/10/21 04:18 Hypersegmented Neuts Not Reportable 05/10/21 04:18 Hyposegmented Neuts Not Reportable 05/10/21 04:18 Hypogranular Neuts Not Reportable 05/10/21 04:18 Smudge Cells Not Reportable 05/10/21 04:18 Toxic Granulation Not Reportable 05/10/21 04:18 Toxic Vacuolation Not Reportable 05/10/21 04:18 Dohle Bodies Not Reportable 05/10/21 04:18 Pelger-Huet Anomaly Not Reportable 05/10/21 04:18 Pauline Rods Not Reportable 05/10/21 04:18 Platelet Estimate Consistent w auto 05/10/21 04:18 Clumped Platelets Not Reportable 05/10/21 04:18 Plt Clumps, EDTA Not Reportable 05/10/21 04:18 Large Platelets Not Reportable 05/10/21 04:18 Giant Platelets Not Reportable 05/10/21 04:18 Platelet Satelliting Not Reportable 05/10/21 04:18 Plt Morphology Comment Not Reportable 05/10/21 04:18 RBC Morphology Normal 05/10/21 04:18 Dimorphic RBCs Not Reportable 05/10/21 04:18 Polychromasia Not Reportable 05/10/21 04:18 Hypochromasia Not Reportable 05/10/21 04:18 Poikilocytosis Not Reportable 05/10/21 04:18 Anisocytosis Not Reportable 05/10/21 04:18 Microcytosis Not Reportable 05/10/21 04:18 Macrocytosis Not Reportable 05/10/21 04:18 Spherocytes Not Reportable 05/10/21 04:18 Pappenheimer Bodies Not Reportable 05/10/21 04:18 Sickle Cells Not Reportable 05/10/21 04:18 Target Cells Not Reportable 05/10/21 04:18 Tear Drop Cells Not Reportable 05/10/21 04:18 Ovalocytes Not Reportable 05/10/21 04:18 Helmet Cells Not Reportable 05/10/21 04:18 [place] Bodies Not Reportable 05/10/21 04:[address] Flat Rings Not Reportable 05/10/21 04:18 Driver Cells Not Reportable 05/10/21 04:18 Bite Cells Not Reportable 05/10/21 04:18 Crenated Cell Not Reportable 05/10/21 04:18 Elliptocytes Not Reportable 05/10/21 04:18 Acanthocytes (Spur) Not Reportable 05/10/21 04:18 Rouleaux Not Reportable 05/10/21 04:18 Hemoglobin C Crystals Not Reportable 05/10/21 04:18 Schistocytes Not Reportable 05/10/21 04:18 Malaria parasites Not Reportable 05/10/21 04:18 Isaac Bodies Not Reportable 05/10/21 04:18 Hem Pathologist Commnt No 05/10/21 04:18 PT 15.0 Sec. (12.2-14.9) H 05/09/21 17:21 INR 1.12 (0.87-1.13) 05/09/21 17:21 ABG pH 7.419 (7.320-7.450) 05/09/21 18:33 POC ABG pCO2 33.3 mmHg (32.0-48.0) 05/09/21 18:33 POC ABG pO2 478.4 mmHg (83-108) H 05/09/21 18:33 POC ABG HCO3 21.1 05/09/21 18:33 ABG O2 Saturation 99.7 (0-100) 05/09/21 18:33 POC ABG Base Excess -2.6 05/09/21 18:33 ABG Hemoglobin 14.1 (12.0-17.5) 05/09/21 18:33 ABG Oxyhemoglobin 98.8 (94-98) H 05/09/21 18:33 ABG Methemoglobin 0 (0.0-1.5) 05/09/21 18:33 ABG Sodium 140.7 mmol/L (136.0-145.0) 05/09/21 18:33 ABG Potassium 3.1 mmol/L (3.40-4.50) L 05/09/21 18:33 ABG Chloride 102.0 mmol/L (98-107) 05/09/21 18:33 ABG Glucose 85 mg/dL (65-95) 05/09/21 18:33 ABG Lactate 1.38 (0.18-30.0) 05/09/21 18:33 VBG pH 7.306 (7.320-7.420) L 05/09/21 17:51 Carboxyhemoglobin 0.9 (0.5-1.5) 05/09/21 18:33 FiO2 % 100.0 05/09/21 18:33 Sodium 139 mmol/L (137-145) 05/14/21 04:45 Potassium 3.6 mmol/L (3.6-5.0) 05/14/21 04:45 Chloride 104.8 mmol/L (98-107) 05/14/21 04:45 Carbon Dioxide 26 mmol/L (22-30) 05/14/21 04:45 Anion Gap 12 mmol/L 05/14/21 04:45 BUN 11 mg/dL (7-17) 05/14/21 04:45 Creatinine 0.5 mg/dL (0.6-1.2) L 05/14/21 04:45 Estimated GFR > 60 ml/min 05/14/21 04:45 BUN/Creatinine Ratio 22 % 05/14/21 04:45 Glucose 102 mg/dL (65-100) H 05/14/21 04:45 Lactic Acid 1.00 mmol/L (0.7-2.0) 05/09/21 20:00 Calcium 8.2 mg/dL (8.4-10.2) L 05/14/21 04:45 Magnesium 2.20 mg/dL (1.7-2.3) 05/09/21 17:21 Total Bilirubin 0.60 mg/dL (0.1-1.2) 05/10/21 04:18 AST 17 units/L (5-40) 05/10/21 04:18 ALT 11 units/L (7-56) 05/10/21 04:18 Alkaline Phosphatase 90 units/L (35-129) 05/10/21 04:18 Ammonia 59.0 umol/L (25-60) 05/14/21 04:45 Total Creatine Kinase 70 units/L (30-135) 05/09/21 17:21 Troponin T < 0.010 ng/mL (0.00-0.029) 05/09/21 17:21 Total Protein 6.9 g/dL (6.3-8.2) 05/10/21 04:18 Albumin 4.3 g/dL (3.9-5) 05/10/21 04:18 Albumin/Globulin Ratio 1.7 % 05/10/21 04:18 TSH 6.210 mlU/mL (0.270-4.200) H 05/09/21 17:21 Free T4 1.66 ng/dL (0.76-1.46) H 05/10/21 08:16 Free T3 Index 3.4 pg/mL (2.3-4.2) 05/10/21 08:16 HCG, Qual Negative (Negative) 05/09/21 17:21 Arterial Blood Glucose 85 mg/dL (65-95) 05/09/21 18:33 Urine Color Yellow (Yellow) 05/09/21 18:47 Urine Turbidity Clear (Clear) 05/09/21 18:47 Urine pH 7.0 (5.0-7.0) 05/09/21 18:47 Ur Specific Show Low 1.010 (1.003-1.030) 05/09/21 18:47 Urine Protein <15 mg/dl mg/dL (Negative) 05/09/21 18:47 Urine Glucose (UA) Neg mg/dL (Negative) 05/09/21 18:47 Urine Ketones Tr mg/dL (Negative) 05/09/21 18:47 Urine Blood Neg (Negative) 05/09/21 18:47 Urine Nitrite Neg (Negative) 05/09/21 18:47 Urine Bilirubin Neg (Negative) 05/09/21 18:47 Urine Urobilinogen < 2.0 mg/dL (<2.0) 05/09/21 18:47 Ur Leukocyte Esterase Neg (Negative) 05/09/21 18:47 Urine WBC (Auto) 1.0 /HPF (0.0-6.0) 05/09/21 18:47 Urine RBC (Auto) 3.0 /HPF (0.0-6.0) 05/09/21 18:47 U Epithel Cells (Auto) 1.0 /HPF (0-13.0) 05/09/21 18:47 Urine Bacteria (Auto) 1+ /HPF (Negative) 05/09/21 18:47 Urine Mucus Few /HPF 05/09/21 18:47 Salicylates < 0.3 mg/dL (2.8-20.0) L 05/09/21 17:21 Urine Opiates Screen Negative 05/09/21 18:47 Urine Methadone Screen Negative 05/09/21 18:47 Acetaminophen 5.0 ug/mL (10.0-30.0) L 05/09/21 17:21 Ur Barbiturates Screen Negative 05/09/21 18:47 Ur Phencyclidine Scrn Negative 05/09/21 18:47 Ur Amphetamines Screen Positive 05/09/21 18:47 U Benzodiazepines Scrn Negative 05/09/21 18:47 Urine Cocaine Screen Negative 05/09/21 18:47 U Marijuana (THC) Screen Negative 05/09/21 18:47 Drugs of Abuse Note Disclamer 05/09/21 18:47 Plasma/Serum Alcohol < 0.01 % (0-0.07) 05/09/21 17:21 Coronavirus (PCR) Negative (Negative) 05/10/21 Unknown Microbiology: Microbiology 05/09/21 17:21 Peripheral/Venous Blood Culture - Preliminary NO GROWTH AFTER 4 DAYS 05/09/21 17:27 Peripheral/Venous Blood Culture - Preliminary NO GROWTH AFTER 4 DAYS [place]/IV: Voiding Method Toilet Active Medications - Current Medications Current Medications: Generic Name Dose Route Start Last Admin Trade Name Freq PRN Reason Stop Dose Admin Acetaminophen 650 mg 05/12/21 10:10 05/13/21 11:03 Acetaminophen 325 Mg/10.15 Ml Oral Liqd Unit Dose PO 650 mg Q6H PRN Administration Pain MILD(1-3)/Fever >100.5/JONES Famotidine 20 mg 05/12/21 22:00 05/13/21 22:34 Famotidine 20 Mg Tab PO 20 mg BID RADHAMES Administration Fluoxetine HCl 20 mg 05/14/21 10:00 Fluoxetine 20 Mg Cap PO QDAY RADHAMES Heparin Sodium (Porcine) 5,000 unit 05/09/21 22:00 05/13/21 22:34 Heparin 5,000 Unit/1 Ml Vial SUB-Q 5,000 unit Q12HR RADHAMES Administration Hydroxyzine Pamoate 25 mg 05/11/21 22:00 05/12/21 16:28 Hydroxyzine Pamoate 25 Mg Cap PO 25 mg Q6H PRN Administration Anxiety Nicotine 21 mg 05/12/21 19:00 05/13/21 10:57 Nicotine 21 Mg/24 Hr Patch TD 21 mg QDAY RADHAMES Administration Olanzapine 2.5 mg 05/13/21 16:00 05/13/21 18:03 Olanzapine 2.5 Mg Tab PO 2.5 mg QDAY RADHAMES Administration Ondansetron HCl 4 mg 05/10/21 12:07 Ondansetron 4 Mg/2 Ml Inj IV Q6H PRN Nausea And Vomiting Sodium Chloride 10 ml 05/09/21 22:00 05/13/21 22:36 Sodium Chloride 0.9% 10 Ml Flush Syringe IV 10 ml BID RADHAMES Administration Sodium Chloride 10 ml 05/09/21 19:46 Sodium Chloride 0.9% 10 Ml Flush Syringe IV PRN PRN LINE FLUSH Trazodone HCl 50 mg 05/11/21 22:00 05/13/21 22:33 Trazodone 50 Mg Tab PO 50 mg QHS RADHAMES Administration Nutrition/Malnutrition Assess - Dietary Evaluation Nutrition/Malnutrition Findings: Nutrition Notes Start: 05/10/21 07:41 Freq: Status: Active Protocol: Document 05/11/21 11:22 CW (Rec: 05/11/21 11:28 [id number]) Nutrition Notes Need for Assessment generated from: spring coiler Initial or Follow up Reassessment Other Pertinent Diagnosis droplet precuations; suicide attempt, intentional drug overdose Current Diet Regular Diet Labs/Tests Reviewed Pertinent Medications Reviewed Height 5 ft 6 in Weight 58.2 kg [place] Body Weight (kg) 59.09 BMI 20.7 Weight change and time frame weight change likely related to extubation Weight Status Appropriate Subjective/Other Information RN sccreen for skin risk. Michael score of 18. Skin is intact. Pt extubated and diet advanced. Will monitor intakes . Pt on droplet precautions and did not answer phone x2. Per sitter, pt consuming 100% of meal. Burn Absent Trauma Absent Current % PO Good (75-100%) Minimum of two criteria No physical signs of malnutrition #1 Nutrition Diagnosis Inadequate oral intake As Evidenced by Signs and Symptoms Pt extubated and consuming 100 % of regular diet Diagnosis Progress(for reassessment Improved documentation) Is patient on ventilator? No Is Patient Ambulatory and/or Out of Bed No REE-([place]-confined to bed) 1602.396 Calculation Used for Recommendations Jorge A Gallardo Additional Notes Protein: (1.2-2g/kg) 78-130g Fluid: 1 ml/kcal Nutrition Intervention Change Diet Order: Continue diet as ordered Goal #1 Continue to meet at least 75% of kcal and protein needs Anticipated Discharge Needs: Regular diet Follow-Up By: 05/16/21 Additional Comments F/U for intakes
[2021-05-14] MEDS: NICOTINE 21 MG/24 HR PATCH TD SCH (09:10)
[2021-05-14] MEDS: FAMOTIDINE 20 MG TAB PO SCH ×2 (09:10→21:20)
[2021-05-14] MEDS: FLUoxetine 20 MG CAP PO SCH (09:10)
[2021-05-14] MEDS: HEPARIN 5,000 UNIT/1 ML VIAL SUB-Q SCH ×2 (09:10→21:20)
[2021-05-14] MEDS: hydrOXYzine PAMOATE 25 MG CAP PO PRN ×2 (09:11→16:22)
--- NOTE | 2021-05-14 11:25 | Progress Note ---
Subjective - Reason for Consult Consult date: 05/14/21 Reason for consult: SI - Chief Complaint Chief complaint: Patient was seen today, she is irritable, and says she "just wants to sleep." The patient at times is inconsistent. She initially denies hallucinations, then says "well sleep, that's a hallucination." She then says "I'm not hallucinating, not that I know of." She still verbalizes SI. She says "I want to go to [place]. Let me see how I feel tomorrow." REVIEW OF SYSTEMS Constitutional: Negative for weight loss ENT: Negative for stridor Respiratory: Negative for cough or hemoptysis All other systems reviewed and are negative MENTAL STATUS EXAMINATION General Appearance and Behavior: Age appropriate, good hygiene, wearing appropriate clothes, cooperative polite with questioning. 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 PSYCHOTHERAPY: Supportive psychotherapy provided MEDICAL: Per primary team DELIRIUM PRECAUTIONS: Please re-orient patient frequently, keep lights on during the day, and minimize benzodiazepines and opiates as these medications could worsen patient's confusion. PSYCHOTHERAPIST SOCIAL WORKER: Per medical team DISPOSITION: Recommend acute inpatient psychiatric hospitalization at this time Will follow for medication management. Thank you for the consult. Please contact with any questions and/or concerns. Mental Status Exam - Vital signs Last Vital Signs Temp 99.0 F 05/13/21 19:59 Pulse 82 05/13/21 22:00 Resp 20 05/13/21 22:00 BP 104/68 05/13/21 19:59 Pulse Ox 97 05/13/21 22:00
[2021-05-14] MEDS: ACETAMINOPHEN 325 MG/10.15 ML ORAL LIQD UNIT DOSE PO PRN (18:07)
[2021-05-14] MEDS: traZODone 50 MG TAB PO SCH (21:20)
[2021-05-15] MEDS: hydrOXYzine PAMOATE 25 MG CAP PO PRN ×3 (00:51→18:18)
[2021-05-15] MEDS: NICOTINE 21 MG/24 HR PATCH TD SCH (11:23)
[2021-05-15] MEDS: HEPARIN 5,000 UNIT/1 ML VIAL SUB-Q SCH (11:23)
[2021-05-15] MEDS: FAMOTIDINE 20 MG TAB PO SCH (11:23)
[2021-05-15] MEDS: FLUoxetine 20 MG CAP PO SCH (11:23)
[2021-05-15] MEDS ORDERED: LIP THERAPY VASELINE TP PRN (12:18)
--- NOTE | 2021-05-15 12:25 | Progress Note ---
Assessment and Plan Assessment and plan: This is a 26-year-old female with paranoid schizophrenia, depression, PTSD who was admitted after intentional drug overdose, suicide attempt and intubated for airway protection Problem list Acute respiratory failure Intentional drug overdose Suicide attempt Leukocytosis Hyperammonemia Elevated TSH Acute respiratory failure -Patient was intubated per ED notes for airway protection -Patient was extubated 05/10 by CCM and downgraded from ICU to the floor -Supplemental oxygenation as needed -Pulmonary hygiene Intentional drug overdose -Patient received activated charcoal per poison control who also suggested benzodiazepines for agitation -UDS positive for amphetamines -Patient needs sitter at bedside Suicide attempt -Psychiatric consulted, appreciate recommendations -According to family patient has a history of polysubstance drug abuse including methamphetamine and heroin with a history of overdose incidents -According to family patient is a paranoid schizophrenic with PTSD and depression PATIENT MEETS INPATIENT CRITERIA FOR PSYCHIATRY TREATMENT. Leukocytosis -Likely reactive -Trend CBC Hyperammonemia -Presented with an ammonia of 87 -Trend ammonia, lactulose if no resolution Elevated TSH -05/09 TSH 6.2, 05/10 T4 1.6 -Follow-up with PCP to repeat studies Hyponatremia, resolved -Resolved Hypokalemia, resolved -Resolved Hypochloremia, resolved -Resolved Metabolic acidosis, resolved -Resolved Lactic acidosis, resolved -Resolved DVT/GI prophylaxis: SCDs to bilateral lower extremities while in bed Disposition: Patient is medically stable and clear to be discharged to inpatient psychiatry. History Interval history: 05/11/2021: Patient seen and examined, sleeping, no complaints, no agitation. 05/12/2021: Patient seen and examined, states that she has some intermittent suicidal ideation, denies any hallucinations at this time. Patient is eating food, but not getting out of bed. Seems to be very lethargic. 05/13/21: no overnight events, pt w/o agitation. continues to have thoughts of suicide ideation 05/14/2021: No overnight events, patient lying in bed, eating food, still endorses suicidal ideation. 05/15/2021, no overnight events, Patient continues have suicidal ideation. Hospitalist Physical - Physical exam Narrative exam: General appearance: no acute distress, well-nourished EENT: PERRL, EOM intact, hearing intact, clear oral mucosa Neck: Present: supple, normal ROM Respiratory: bilateral CTA, negative: rales, rhonchi, wheezing Cardiovascular: Regular rate/rhythm, Normal S1 & S2. No gallop, rub Extremities: no ischemia, No edema, normal temperature, normal color, Full ROM Abdominal: soft, no tenderness, non-distended, normal bowel sounds Integumentary: Present: clear, warm, dry no wounds, no erythema noted Psychiatric: Flat affect, suicidal ideation noted, no homicidal ideation Neurologic: CNII-XII intact, moves all extremities, no sensory or motor abnormalities - Constitutional Vitals: Temp Pulse Resp BP Pulse Ox 97.7 F 67 18 95/49 97 05/15/21 09:24 05/15/21 09:24 05/15/21 10:00 05/15/21 09:24 05/15/21 09:24 General appearance: Present: disheveled HEART Score - HEART Score Troponin: Troponin T < 0.010 ng/mL (0.00-0.029) 05/09/21 17:21 Results - Labs CBC & Chem 7: 05/12/21 05:37 05/14/21 04:45 Labs: Laboratory Last Values WBC 10.8 K/mm3 (4.5-11.0) 05/12/21 05:37 RBC 3.91 M/mm3 (3.65-5.03) 05/12/21 05:37 Hgb 12.7 gm/dl (10.1-14.3) 05/12/21 05:37 Hct 36.8 % (30.3-42.9) 05/12/21 05:37 MCV 94 fl (79-97) 05/12/21 05:37 MCH 32 pg (28-32) 05/12/21 05:37 MCHC 34 % (30-34) 05/12/21 05:37 RDW 13.5 % (13.2-15.2) 05/12/21 05:37 Plt Count 276 K/mm3 (140-440) 05/12/21 05:37 Lymph % (Auto) 18.5 % (13.4-35.0) 05/11/21 13:10 [place] % (Auto) 7.4 % (0.0-7.3) H 05/11/21 13:10 Eos % (Auto) 1.1 % (0.0-4.3) 05/11/21 13:10 Baso % (Auto) 0.8 % (0.0-1.8) 05/11/21 13:10 Lymph # (Auto) 1.7 K/mm3 (1.2-5.4) 05/11/21 13:10 [place] # (Auto) 0.7 K/mm3 (0.0-0.8) 05/11/21 13:10 Eos # (Auto) 0.1 K/mm3 (0.0-0.4) 05/11/21 13:10 Baso # (Auto) 0.1 K/mm3 (0.0-0.1) 05/11/21 13:10 Add Manual Diff Complete 05/10/21 04:18 Total Counted 100 05/10/21 04:18 Seg Neutrophils % 72.2 % (40.0-70.0) H 05/11/21 13:10 Seg Neuts % (Manual) 88.0 % (40.0-70.0) H 05/10/21 04:18 Band Neutrophils % 1.0 % 05/10/21 04:18 Lymphocytes % (Manual) 6.0 % (13.4-35.0) L 05/10/21 04:18 Monocytes % (Manual) 5.0 % (0.0-7.3) 05/10/21 04:18 Nucleated RBC % Not Reportable 05/10/21 04:18 Seg Neutrophils # 6.7 K/mm3 (1.8-7.7) 05/11/21 13:10 Seg Neutrophils # Man 16.9 K/mm3 (1.8-7.7) H 05/10/21 04:18 Band Neutrophils # 0.2 K/mm3 05/10/21 04:18 Lymphocytes # (Manual) 1.2 K/mm3 (1.2-5.4) 05/10/21 04:18 Abs React Lymphs (Man) 0.0 K/mm3 05/10/21 04:18 Monocytes # (Manual) 1.0 K/mm3 (0.0-0.8) H 05/10/21 04:18 Eosinophils # (Manual) 0.0 K/mm3 (0.0-0.4) 05/10/21 04:18 Basophils # (Manual) 0.0 K/mm3 (0.0-0.1) 05/10/21 04:18 Metamyelocytes # 0.0 K/mm3 05/10/21 04:18 Myelocytes # 0.0 K/mm3 05/10/21 04:18 Promyelocytes # 0.0 K/mm3 05/10/21 04:18 Blast Cells # 0.0 K/mm3 05/10/21 04:18 WBC Morphology Not Reportable 05/10/21 04:18 Hypersegmented Neuts Not Reportable 05/10/21 04:18 Hyposegmented Neuts Not Reportable 05/10/21 04:18 Hypogranular Neuts Not Reportable 05/10/21 04:18 Smudge Cells Not Reportable 05/10/21 04:18 Toxic Granulation Not Reportable 05/10/21 04:18 Toxic Vacuolation Not Reportable 05/10/21 04:18 Dohle Bodies Not Reportable 05/10/21 04:18 Pelger-Huet Anomaly Not Reportable 05/10/21 04:18 Pauline Rods Not Reportable 05/10/21 04:18 Platelet Estimate Consistent w auto 05/10/21 04:18 Clumped Platelets Not Reportable 05/10/21 04:18 Plt Clumps, EDTA Not Reportable 05/10/21 04:18 Large Platelets Not Reportable 05/10/21 04:18 Giant Platelets Not Reportable 05/10/21 04:18 Platelet Satelliting Not Reportable 05/10/21 04:18 Plt Morphology Comment Not Reportable 05/10/21 04:18 RBC Morphology Normal 05/10/21 04:18 Dimorphic RBCs Not Reportable 05/10/21 04:18 Polychromasia Not Reportable 05/10/21 04:18 Hypochromasia Not Reportable 05/10/21 04:18 Poikilocytosis Not Reportable 05/10/21 04:18 Anisocytosis Not Reportable 05/10/21 04:18 Microcytosis Not Reportable 05/10/21 04:18 Macrocytosis Not Reportable 05/10/21 04:18 Spherocytes Not Reportable 05/10/21 04:18 Pappenheimer Bodies Not Reportable 05/10/21 04:18 Sickle Cells Not Reportable 05/10/21 04:18 Target Cells Not Reportable 05/10/21 04:18 Tear Drop Cells Not Reportable 05/10/21 04:18 Ovalocytes Not Reportable 05/10/21 04:18 Helmet Cells Not Reportable 05/10/21 04:18 [place] Bodies Not Reportable 05/10/21 04:18 Bode Rings Not Reportable 05/10/21 04:18 [place] Cells Not Reportable 05/10/21 04:18 Bite Cells Not Reportable 05/10/21 04:18 Crenated Cell Not Reportable 05/10/21 04:18 Elliptocytes Not Reportable 05/10/21 04:18 Acanthocytes (Spur) Not Reportable 05/10/21 04:18 Rouleaux Not Reportable 05/10/21 04:18 Hemoglobin C Crystals Not Reportable 05/10/21 04:18 Schistocytes Not Reportable 05/10/21 04:18 Malaria parasites Not Reportable 05/10/21 04:18 Isaac Bodies Not Reportable 05/10/21 04:18 Hem Pathologist Commnt No 05/10/21 04:18 PT 15.0 Sec. (12.2-14.9) H 05/09/21 17:21 INR 1.12 (0.87-1.13) 05/09/21 17:21 ABG pH 7.419 (7.320-7.450) 05/09/21 18:33 POC ABG pCO2 33.3 mmHg (32.0-48.0) 05/09/21 18:33 POC ABG pO2 478.4 mmHg (83-108) H 05/09/21 18:33 POC ABG HCO3 21.1 05/09/21 18:33 ABG O2 Saturation 99.7 (0-100) 05/09/21 18:33 POC ABG Base Excess -2.6 05/09/21 18:33 ABG Hemoglobin 14.1 (12.0-17.5) 05/09/21 18:33 ABG Oxyhemoglobin 98.8 (94-98) H 05/09/21 18:33 ABG Methemoglobin 0 (0.0-1.5) 05/09/21 18:33 ABG Sodium 140.7 mmol/L (136.0-145.0) 05/09/21 18:33 ABG Potassium 3.1 mmol/L (3.40-4.50) L 05/09/21 18:33 ABG Chloride 102.0 mmol/L (98-107) 05/09/21 18:33 ABG Glucose 85 mg/dL (65-95) 05/09/21 18:33 ABG Lactate 1.38 (0.18-30.0) 05/09/21 18:33 VBG pH 7.306 (7.320-7.420) L 05/09/21 17:51 Carboxyhemoglobin 0.9 (0.5-1.5) 05/09/21 18:33 FiO2 % 100.0 05/09/21 18:33 Sodium 139 mmol/L (137-145) 05/14/21 04:45 Potassium 3.6 mmol/L (3.6-5.0) 05/14/21 04:45 Chloride 104.8 mmol/L (98-107) 05/14/21 04:45 Carbon Dioxide 26 mmol/L (22-30) 05/14/21 04:45 Anion Gap 12 mmol/L 05/14/21 04:45 BUN 11 mg/dL (7-17) 05/14/21 04:45 Creatinine 0.5 mg/dL (0.6-1.2) L 05/14/21 04:45 Estimated GFR > 60 ml/min 05/14/21 04:45 BUN/Creatinine Ratio 22 % 05/14/21 04:45 Glucose 102 mg/dL (65-100) H 05/14/21 04:45 Lactic Acid 1.00 mmol/L (0.7-2.0) 05/09/21 20:00 Calcium 8.2 mg/dL (8.4-10.2) L 05/14/21 04:45 Magnesium 2.20 mg/dL (1.7-2.3) 05/09/21 17:21 Total Bilirubin 0.60 mg/dL (0.1-1.2) 05/10/21 04:18 AST 17 units/L (5-40) 05/10/21 04:18 ALT 11 units/L (7-56) 05/10/21 04:18 Alkaline Phosphatase 90 units/L (35-129) 05/10/21 04:18 Ammonia 59.0 umol/L (25-60) 05/14/21 04:45 Total Creatine Kinase 70 units/L (30-135) 05/09/21 17:21 Troponin T < 0.010 ng/mL (0.00-0.029) 05/09/21 17:21 Total Protein 6.9 g/dL (6.3-8.2) 05/10/21 04:18 Albumin 4.3 g/dL (3.9-5) 05/10/21 04:18 Albumin/Globulin Ratio 1.7 % 05/10/21 04:18 TSH 6.210 mlU/mL (0.270-4.200) H 05/09/21 17:21 Free T4 1.66 ng/dL (0.76-1.46) H 05/10/21 08:16 Free T3 Index 3.4 pg/mL (2.3-4.2) 05/10/21 08:16 HCG, Qual Negative (Negative) 05/09/21 17:21 Arterial Blood Glucose 85 mg/dL (65-95) 05/09/21 18:33 Urine Color Yellow (Yellow) 05/09/21 18:47 Urine Turbidity Clear (Clear) 05/09/21 18:47 Urine pH 7.0 (5.0-7.0) 05/09/21 18:47 Ur Specific [place] 1.010 (1.003-1.030) 05/09/21 18:47 Urine Protein <15 mg/dl mg/dL (Negative) 05/09/21 18:47 Urine Glucose (UA) Neg mg/dL (Negative) 05/09/21 18:47 Urine Ketones Tr mg/dL (Negative) 05/09/21 18:47 Urine Blood Neg (Negative) 05/09/21 18:47 Urine Nitrite Neg (Negative) 05/09/21 18:47 Urine Bilirubin Neg (Negative) 05/09/21 18:47 Urine Urobilinogen < 2.0 mg/dL (<2.0) 05/09/21 18:47 Ur Leukocyte Esterase Neg (Negative) 05/09/21 18:47 Urine WBC (Auto) 1.0 /HPF (0.0-6.0) 05/09/21 18:47 Urine RBC (Auto) 3.0 /HPF (0.0-6.0) 05/09/21 18:47 U Epithel Cells (Auto) 1.0 /HPF (0-13.0) 05/09/21 18:47 Urine Bacteria (Auto) 1+ /HPF (Negative) 05/09/21 18:47 Urine Mucus Few /HPF 05/09/21 18:47 Salicylates < 0.3 mg/dL (2.8-20.0) L 05/09/21 17:21 Urine Opiates Screen Negative 05/09/21 18:47 Urine Methadone Screen Negative 05/09/21 18:47 Acetaminophen 5.0 ug/mL (10.0-30.0) L 05/09/21 17:21 Ur Barbiturates Screen Negative 05/09/21 18:47 Ur Phencyclidine Scrn Negative 05/09/21 18:47 Ur Amphetamines Screen Positive 05/09/21 18:47 U Benzodiazepines Scrn Negative 05/09/21 18:47 Urine Cocaine Screen Negative 05/09/21 18:47 U Marijuana (THC) Screen Negative 05/09/21 18:47 Drugs of Abuse Note Disclamer 05/09/21 18:47 Plasma/Serum Alcohol < 0.01 % (0-0.07) 05/09/21 17:21 Coronavirus (PCR) Negative (Negative) 05/10/21 Unknown Microbiology: Microbiology 05/09/21 17:21 Peripheral/Venous Blood Culture - Final NO GROWTH AFTER 5 DAYS 05/09/21 17:27 Peripheral/Venous Blood Culture - Final NO GROWTH AFTER 5 DAYS [place]/IV: Voiding Method Toilet Active Medications - Current Medications Current Medications: Generic Name Dose Route Start Last Admin Trade Name Freq PRN Reason Stop Dose Admin Acetaminophen 650 mg 05/12/21 10:10 05/14/21 18:07 Acetaminophen 325 Mg/10.15 Ml Oral Liqd Unit Dose PO 650 mg Q6H PRN Administration Pain MILD(1-3)/Fever >100.5/JONES Famotidine 20 mg 05/12/21 22:00 05/15/21 11:23 Famotidine 20 Mg Tab PO 20 mg BID RADHAMES Administration Fluoxetine HCl 20 mg 05/14/21 10:00 05/15/21 11:23 Fluoxetine 20 Mg Cap PO 20 mg QDAY RADHAMES Administration Heparin Sodium (Porcine) 5,000 unit 05/09/21 22:00 05/15/21 11:23 Heparin 5,000 Unit/1 Ml Vial SUB-Q 5,000 unit Q12HR RADHAMES Administration Hydrophilic Ointment 1 applic 05/15/21 12:18 Lip Therapy Vaseline TP DIRECT PRN Dry Lips Hydroxyzine Pamoate 25 mg 05/11/21 22:00 05/15/21 12:21 Hydroxyzine Pamoate 25 Mg Cap PO 25 mg Q6H PRN Administration Anxiety Nicotine 21 mg 05/12/21 19:00 05/15/21 11:23 Nicotine 21 Mg/24 Hr Patch TD 21 mg QDAY RADHAMES Administration Olanzapine 2.5 mg 05/13/21 16:00 05/15/21 11:23 Olanzapine 2.5 Mg Tab PO 2.5 mg QDAY RADHAMES Administration Ondansetron HCl 4 mg 05/10/21 12:07 Ondansetron 4 Mg/2 Ml Inj IV Q6H PRN Nausea And Vomiting Sodium Chloride 10 ml 05/09/21 22:00 05/15/21 11:24 Sodium Chloride 0.9% 10 Ml Flush Syringe IV 10 ml BID RADHAMES Administration Sodium Chloride 10 ml 05/09/21 19:46 Sodium Chloride 0.9% 10 Ml Flush Syringe IV PRN PRN LINE FLUSH Trazodone HCl 50 mg 05/11/21 22:00 05/14/21 21:20 Trazodone 50 Mg Tab PO 50 mg QHS RADHAMES Administration Nutrition/Malnutrition Assess - Dietary Evaluation Nutrition/Malnutrition Findings: Nutrition Notes Start: 05/10/21 07:41 Freq: Status: Active Protocol: Document 05/11/21 11:22 CW (Rec: 05/11/21 11:28 CW [id number]) Nutrition Notes 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 Michael score of 18. Skin is intact. Pt extubated and diet advanced. Will monitor intakes . Pt on droplet precautions and did not answer phone x2. Per sitter, pt consuming 100% of meal. Burn Absent Trauma Absent Current % PO Good (75-100%) Minimum of two criteria No physical signs of malnutrition #1 Nutrition Diagnosis Inadequate oral intake As Evidenced by Signs and Symptoms Pt extubated and consuming 100 % of regular diet Diagnosis Progress(for reassessment Improved documentation) Is patient on ventilator? No Is Patient Ambulatory and/or Out of Bed No REE-([facility]-confined to bed) 6570.965 Calculation Used for Recommendations [facility] Additional Notes Protein: (1.2-2g/kg) 78-130g Fluid: 1 ml/kcal Nutrition Intervention Change Diet Order: Continue diet as ordered Goal #1 Continue to meet at least 75% of kcal and protein needs Anticipated Discharge Needs: Regular diet Follow-Up By: 05/16/21 Additional Comments F/U for intakes
[2021-05-15] MEDS ORDERED: busPIRone 5 MG TAB PO SCH (14:00)
--- NOTE | 2021-05-15 18:54 | Discharge Summary ---
Providers - Providers Date of Admission: 05/09/21 19:46 Date of discharge: 05/15/21 Attending physician: FELICIANO SZYMANSKI MD 05/10/21 07:18 Consult to Physician [CONS] Routine Comment: Consulting Provider: GAURI LUTZ Physician Instructions: Reason For Exam: suicide attempt 05/12/21 10:10 Physical Therapy Evaluation and Treat [CONS] Routine Comment: Reason For Exam: debility Primary care physician: LINER [employer]SEMBLER Hospitalization Condition: Good Hospital course: This is a 26-year-old female with paranoid schizophrenia, depression, PTSD who was admitted after intentional drug overdose, suicide attempt and intubated for airway protection Problem list Acute respiratory failure Intentional drug overdose Suicide attempt Leukocytosis Hyperammonemia Elevated TSH Acute respiratory failure -Patient was intubated per ED notes for airway protection -Patient was extubated 05/10 by CCM and downgraded from ICU to the floor -Supplemental oxygenation as needed -Pulmonary hygiene Intentional drug overdose -Patient received activated charcoal per poison control who also suggested benzodiazepines for agitation -UDS positive for amphetamines -Patient needs sitter at bedside Suicide attempt -Psychiatric consulted, appreciate recommendations -According to family patient has a history of polysubstance drug abuse including methamphetamine and heroin with a history of overdose incidents -According to family patient is a paranoid schizophrenic with PTSD and depression PATIENT MEETS INPATIENT CRITERIA FOR PSYCHIATRY TREATMENT. Leukocytosis -Likely reactive -Trend CBC Hyperammonemia -Presented with an ammonia of 87 -Trend ammonia, lactulose if no resolution Elevated TSH -05/09 TSH 6.2, 05/10 T4 1.6 -Follow-up with PCP to repeat studies Hyponatremia, resolved -Resolved Hypokalemia, resolved -Resolved Hypochloremia, resolved -Resolved Metabolic acidosis, resolved -Resolved Lactic acidosis, resolved -Resolved Disposition: Patient is medically stable and clear to be discharged to inpatient psychiatry. History Interval history: 05/11/2021: Patient seen and examined, sleeping, no complaints, no agitation. 05/12/2021: Patient seen and examined, states that she has some intermittent suicidal ideation, denies any hallucinations at this time. Patient is eating food, but not getting out of bed. Seems to be very lethargic. 05/13/21: no overnight events, pt w/o agitation. continues to have thoughts of suicide ideation 05/14/2021: No overnight events, patient lying in bed, eating food, still endorses suicidal ideation. 05/15/2021, no overnight events, Patient continues have suicidal ideation. Outside accepting facility has accepted the patient today, DC to inpt psych Disposition: DC/[place]-70 ANOTHER TYPE [facility] Final Discharge Diagnosis (Prints w/discharge instructions): Leukocytosis. - Likely reactive. -Trend CBC. Hyperammonemia. -Presented with an ammonia of 87. -Trend ammonia, lactulose if no resolution. Elevated TSH. -05/09 TSH 6.2, 05/10 T4 1.6. -Follow-up with PCP to repeat studies. Hyponatremia, resolved. - Resolved. Hypokalemia, resolved. -Resolved. Hypochloremia, resolved. - Resolved. Metabolic acidosis, resolved. -Resolved. Lactic acidosis, resolved. -Resolved Time spent for discharge: 35 min Core Measure Documentation - Palliative Care Palliative Care/ Comfort Measures: Not Applicable - Core Measures Any of the following diagnoses?: none Exam - Physical Exam Narrative exam: General appearance: no acute distress, well-nourished EENT: PERRL, EOM intact, hearing intact, clear oral mucosa Neck: Present: supple, normal ROM Respiratory: bilateral CTA, negative: rales, rhonchi, wheezing Cardiovascular: Regular rate/rhythm, Normal S1 & S2. No gallop, rub Extremities: no ischemia, No edema, normal temperature, normal color, Full ROM Abdominal: soft, no tenderness, non-distended, normal bowel sounds Integumentary: Present: clear, warm, dry no wounds, no erythema noted Psychiatric: Flat affect, suicidal ideation noted, no homicidal ideation Neurologic: CNII-XII intact, moves all extremities, no sensory or motor abnormalities - Constitutional Vitals: Temp Pulse Resp BP Pulse Ox 97.5 F L 74 20 106/61 99 05/15/21 12:04 05/15/21 12:04 05/15/21 12:04 05/15/21 12:05/15/21 12:04 Plan Activity: no restrictions Weight Bearing Status: Full Weight Bearing Diet: regular Follow up with: PRIMARY CARE, [Primary Care Provider] - 3-5 Days
[2021-05-15 20:23] VITALS: BP 114/60
== END 2021-05-15 21:14 | DRG 917 ==
LOC: ED 16:54 → CC1 19:46 → 4A 05-10 11:04 → 3A 05-10 15:24
PROVIDERS: ADMIT Internal Medicine; ATTEND Family Medicine
PROC: 4A033R1 Measurement of Arterial Saturation, Peripheral, Percutaneous Approach (ICD-10-PCS; principal; 2021-05-09)
PROC: 5A1935Z Respiratory Ventilation, Less than 24 Consecutive Hours (ICD-10-PCS; 2021-05-09)
PROC: 0BH17EZ Insertion of Endotracheal Airway into Trachea, Via Natural or Artificial Opening (ICD-10-PCS; 2021-05-09)
DX: T44.3X2A Poisoning by other parasympatholytics [anticholinergics and antimuscarinics] and spasmolytics, intentional self-harm, initial encounter (principal); J96.00 Acute respiratory failure, unspecified whether with hypoxia or hypercapnia; E87.2 Acidosis; E72.20 Disorder of urea cycle metabolism, unspecified; E87.1 Hypo-osmolality and hyponatremia; F33.2 Major depressive disorder, recurrent severe without psychotic features; Z20.822 Contact with and (suspected) exposure to COVID-19; E87.6 Hypokalemia; D72.829 Elevated white blood cell count, unspecified; E87.8 Other disorders of electrolyte and fluid balance, not elsewhere classified; F41.9 Anxiety disorder, unspecified
CPT/HCPCS: 31500; 36415; 70450; 71045; 80048; 80053; 80307; 80320; 81001; 82140; 82550; 82805; 83735; 84439; 84443; 84481; 84484; 84703; 85007; 85025; 85027; 85610; 87040; 87070; 87086; 87205; 93005; 94002; 94003; 96365; 96366; 96367; 96375; G0378; G0480; J1644; J2060; J2250; J2310; J2405; J3010; J3480; J7030; Q0177; U0003